=== PATIENT | female | born 1985 | race Caucasian/White ===

== ENCOUNTER → 2017-10-14 14:41 | Outpatient (CLI) | payer OTHER, SELFPAY ==
[2017-10-14 15:32] LABS: Free T3 2.9 pg/mL (2.18-3.98); T4 Free Direct 1.35 ng/dL (0.76-1.46); Thyroid Stim Hormone (TSH) 5.05 uIU/mL (0.358-3.74)
== END ==
PROVIDERS: Family Provider Nurse Practitioner; PCP Nurse Practitioner; Visit Provider Nurse Practitioner
DX: E03.9 Hypothyroidism, unspecified (principal)
CPT/HCPCS: 36415; 84439; 84443; 84481

== ENCOUNTER → 2017-11-26 06:30 | Outpatient (CLI) | payer OTHER, SELFPAY ==
[2017-11-26 07:39] LABS: T4 Free Direct 1.52 ng/dL (0.76-1.46); Thyroid Stim Hormone (TSH) 2.22 uIU/mL (0.358-3.74)
== END ==
PROVIDERS: Family Provider Nurse Practitioner; PCP Nurse Practitioner; Visit Provider Nurse Practitioner
DX: E03.9 Hypothyroidism, unspecified (principal)
CPT/HCPCS: 36415; 84439; 84443; 84481

== ENCOUNTER → 2018-01-30 08:17 | Outpatient (CLI) | payer OTHER, SELFPAY ==
[2018-01-30 09:59] LABS: Free T3 4.9 pg/mL (2.18-3.98); T4 Free Direct 0.74 ng/dL (0.76-1.46)
== END ==
PROVIDERS: Family Provider Nurse Practitioner; PCP Nurse Practitioner; Visit Provider Nurse Practitioner
DX: E03.9 Hypothyroidism, unspecified (principal)
CPT/HCPCS: 36415; 84439; 84443; 84481

== ENCOUNTER → 2018-03-13 09:40 | Outpatient (CLI) | payer OTHER, SELFPAY ==
[2018-03-13 17:58] LABS: Xtra Tube EP Lab EXTRA TUBE
[2018-03-15 14:28] LABS: Free T3 3.2 pg/mL (2.18-3.98); T4 Free Direct 1.39 ng/dL (0.76-1.46); Thyroid Stim Hormone (TSH) 2.44 uIU/mL (0.358-3.74)
== END ==
PROVIDERS: Family Provider Nurse Practitioner; PCP Nurse Practitioner; Referring Provider Nurse Practitioner; Visit Provider Nurse Practitioner
DX: E03.9 Hypothyroidism, unspecified (principal)
CPT/HCPCS: 84439; 84443; 84481

== ENCOUNTER → 2018-04-21 16:43 | Outpatient (CLI) | payer OTHER, SELFPAY ==
[2018-03-04 09:42] VITALS: BMI 48.1
--- NOTE | 2018-04-21 16:48 | RAD_ITS ---
HISTORY: cough for several weeks EXAM: XR Chest 2 Views: COMPARISON: None FINDINGS: No significant change. Normal heart size. No vascular congestion, pleural effusion, or acute pulmonary infiltration. No pneumothorax. Pronounced S-shaped thoracolumbar scoliosis with the thoracic convexity to the right. Thoracic kyphosis, as well. RAD/Chest PA and Lateral IMPRESSION: 1. No acute disease or significant change. 2. Pronounced S-shaped thoracolumbar scoliosis together with thoracic kyphosis. at 0543 Reported and signed by: Archie Abreu MD Electronically Signed: Archie Abreu, at 5:41 EST Tel , Service support ,
== END ==
PROVIDERS: Family Provider Nurse Practitioner; PCP Nurse Practitioner; Referring Provider Internal Medicine; Visit Provider Internal Medicine
DX: R05 Cough (principal)
CPT/HCPCS: 71046

== ENCOUNTER → 2018-07-19 16:34 | Outpatient (CLI) | payer OTHER, SELFPAY ==
[2018-03-04 09:42] VITALS: BMI 48.1
[2018-07-19 17:46] LABS: Free T3 3.1 pg/mL (2.18-3.98); T4 Free Direct 1.33 ng/dL (0.76-1.46); Thyroid Stim Hormone (TSH) 2.89 uIU/mL (0.358-3.74)
== END ==
PROVIDERS: Family Provider Nurse Practitioner; PCP Nurse Practitioner; Referring Provider Nurse Practitioner; Visit Provider Nurse Practitioner
DX: E03.9 Hypothyroidism, unspecified (principal)
CPT/HCPCS: 36415; 84439; 84443; 84481

== ENCOUNTER 2018-11-18 14:28 | Observation (INO) | payer OTHER, SELFPAY ==
[2018-11-18] VITALS (8 sets, daily range): BP systolic 138–164; BP diastolic 75–114; PULSE 82–141; RESP 15–25; TEMP 37.1; O2SAT 94–98; BMI 49.9; BMI 47.9
--- NOTE | 2018-11-18 15:04 | EKG12_ITS ---
Test Reason : DIZZY Blood Pressure : / mmHG Vent. Rate : 080 BPM Atrial Rate : 080 BPM P-R Int : 132 ms QRS Dur : 082 ms QT Int : 376 ms P-R-T Axes : 035 059 024 degrees QTc Int : 433 ms Normal sinus rhythm Normal ECG Confirmed by FADI PATTEN ([id number]), art editor VIKTORIA SCHWARTZ ([id number]) on 11/22/2018 1:27:47 PM Referred By: Aurea Kennedy Confirmed By:RAE PATTEN
[2018-11-18] MEDS: 0.9% Normal Saline 1,000 ML 150 ML IV (15:11)
--- NOTE | 2018-11-18 15:33 | ED.VISSUMM ---
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 Patient states her Florinef was recently decreased due to hypertension. She is currently alternating 0.1 and 0.2 mg/day. She did take 0.2 mg this morning. Patient states she had 2 syncopal episodes at home this morning. She denies any injury from falling to the ground. She was at her PCPs office this afternoon and had another near syncopal episode when they stood her up. Patient states her heart rate dropped when they did this. Physical Examination: Vital signs on arrival include a blood pressure of 164/114, temperature 98.7, rate 120, respiratory rate 25, pulse ox 94% on room air. The time of my examination blood pressure is 154/124 with a heart rate of 93. Patient is lying supine in the bed. She is in no acute distress. Head neck examination is unremarkable. Heart is regular rate and rhythm. Lung sounds are clear. Abdomen is soft and nontender. Test Results: EKG is sinus at 80. Normal intervals noted. CBC normal. Chemistry studies significant for potassium 3.4. LFTs normal. Patency test negative. Emergency Department Course and Treatment: Patient was given IV fluids here. Blood pressure at this time is 147/83 with a heart rate of 97. She will be given 40 mg of p.o. potassium. I spoke to Dr. Turpin to whom the patient is known. He advised patient to go back to 0.2 mg of Florinef daily. She will monitor her blood pressure every day. She is to ensure she is monitoring her fluids and drinking enough. She is to wear compression socks. Patient has an appointment with Dr. Turpin on the . Treatment Plan: [] Disposition: Discharge Impression: Syncope with known history of neurocardiogenic vasovagal syncope Addendum: Patient was discharged to home. Nursing staff had her in a wheelchair, but before they were able to get her to the door she had another near syncopal episode and was returned to the room. Vital signs at this time are unremarkable. Patient will be admitted for observation overnight due to the recurrent near syncope and syncope events she had today. This note was generated with [employer]anda[employer] software. It may contain incorrect words, spelling, and punctuation that were not noted in review of the chart prior to signing ED Disposition - Plan for ED Patient: Disposition: Home or Assisted Living Instructions: ED Syncope Vasovagal Referrals: Fide Mahoney NP-C [Primary Care Provider] - Charlie Turpin MD [STAFF PHYSICIAN] - Keep Dalila appointment
[2018-11-18 15:35] LABS: Absolute Lymphocyte Count 2.18 X10^3/ul (0.83-4.51); Absolute Neutrophil Count 7.5 X10^3/uL (2.0-7.7); Basophil# 0.01 X10^3/uL; Basophil% 0.1 % (0-1); Eosinophil# 0.19 X10^3/uL; Eosinophils% 1.8 % (0-5); Hematocrit 37.7 % (37-47); Hemoglobin 12.2 g/dl (12.0-15.0); Lymphocyte # 2.18 X10^3/ul (4.0); Lymphocyte % 20.8 % (19-41); Mean Corp Hgb Conc 32.4 g/gl (32-36); Mean Corpuscular Hgb 24.8 pg (27.0-32.0); Mean Corpuscular Volume 76.6 fL (81-99); Mean Platelet Vol. 9.8 fl (6.2-12.0); Monocyte# 0.55 X10^3/uL; Monocyte% 5.2 % (0-10); Neutrophil # 7.52 X10^3/uL (2.7-7.7); Neutrophil % 71.8 % (47-70); Platelet Count 266 K/mm3 (150-450); RBC Distribution Width CV 14.7 % (11.6-14.6); RBC Distribution Width SD 39.9 fl (35.1-43.9); Red Blood Count 4.92 M/mm3 (4.2-5.4); White Blood Count 10.5 K/mm3 (4.4-11.0)
[2018-11-18 15:39] LABS: POSITIVE COUNT NO; POSITIVE DIFFERENTIAL NO; POSITIVE MORPHOLOGY NO
[2018-11-18 15:48] LABS: AST(SGOT) 18 U/L (15-37); Alanine Aminotransfer ALT/SGPT 37 U/L (13-56); Albumin, Serum 3.5 g/dL (3.2-5.0); Alkaline Phosphatase 87 U/L (45-117); Anion Gap 5 (5-15); BUN 12 mg/dL (7-18); BUN/Creat Ratio 15.2 RATIO (10-20); Bilirubin, Direct 0.08 mg/dL (0.00-0.30); Calcium,Total 8.5 mg/dL (8.5-10.1); Chloride 106 mmol/L (98-107); Creatinine, Serum 0.79 mg/dL (0.55-1.02); EST Glomerular Filtration Rate 90 mL/min (>60); Est Glom Filt Rate - Afr Amer 109 mL/min (>60); Estimated Creatinine Clearance 201.65 ml/min; Globulin 3.3 g/dL (2.2-4.2); Glucose 108 mg/dL (74-106); Potassium 3.4 mmol/L (3.5-5.1); Protein, Total 6.8 g/dL (6.4-8.2); Sodium Level 137 mmol/L (136-145)
[2018-11-18 15:55] LABS: Internal QC Validated? YES +Cl - CLEAR BKGD; Pregnancy, Serum, hCG Quali. NEGATIVE Negative
[2018-11-18 16:01] LABS: Bedside Glucose 88 mg/dL (70-110)
--- NOTE | 2018-11-18 17:55 | ED.RN ---
PT WAS DISCHARGED AND ASSISTED OUT OF ED BY LEONARD IBARRA. PT REPORTS DIZZINESS AND NEAR SYNCOPE WHEN LEAVING ED. PT PLACED BACK IN ROOM, DR. CAMARGO AWARE.
--- NOTE | 2018-11-18 18:16 | PCM.HP.STD ---
Problem List (1) Neurocardiogenic syncope Status: Chronic (2) Premature ventricular contraction Status: Acute (3) Hypothyroidism Status: Chronic Qualifiers: Hypothyroidism type: unspecified Qualified Code(s): E03.9 - Hypothyroidism, unspecified (4) Hypokalemia Status: Acute History of Present Illness Date of Admission: 11/18/18 Chief Complaint: Syncope x2 The patient is a 33 year old F with history of neurocardiogenic syncope status post tilt test as negative, follows up with Dr. Turpin, on Florinef. Her Florinef was recently decreased from 0.2 mg daily to 0.2mg qoday and 0.1mg qod. Patient had 2 episodes of syncope at home, she hit her head on the ground, syncope lasted a few minutes. She woke up she knew where she was. She went to her PCPs office this afternoon and had another near syncopal episode. Subsequently had a syncopal episode in the ED. Vitals in the ED show temperature of 98.7F, heart rate 105, blood pressure 164/114, respiratory 25, SPO2 was 94% on room air. Admitting blood work showed RBC count of 10.5, Hb 12.2, platelet count of 266, sodium 137, potassium 3.4, chloride 106, bicarbonate 26, BUN 12, creatinine 0.79, LFTs were unremarkable. 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 Pt wishes to be placed on a different hormone replacement therapy which is fine once we determine her appropriate dose. Asthma J45.909 Chronic headaches R51 Recurrent UTI N39.0 Seasonal allergies J30.2 Palpitations R00.2 Allergies No Known Allergies Allergy (Verified 11/18/18 14:29) Home Medications: Ambulatory Orders Medication Instructions Recorded fludrocortisone 0.1 mg tablet 0.2 mg PO QODAY tab 04/06/18 Albuterol IH (ProAir) [Proair Hfa 1 - 2 puff INHALATION Q6H PRN PRN 11/18/18 (SP)Vent Pts] Budesonide/Formoterol 160/4.5 2 puff INHALATION DAILY 11/18/18 [Symbicort 160/4.5 Mcg Inhaler (SP)] Cholecalciferol (Vitamin D3) 5,000 unit PO DAILY 11/18/18 [Vitamin D3] Duloxetine HCl 60 mg PO DAILY 11/18/18 Flaxseed Oil [Flax Oil] 1,000 mg PO DAILY 11/18/18 Fludrocortisone Acetate [Florinef] 0.1 mg PO QODAY 11/18/18 Levothyroxine Sodium 125 mcg PO DAILY 11/18/18 Liothyronine Sodium 5 mcg PO ONCE 11/18/18 Lorazepam [Ativan] 0.5 mg PO BID PRN PRN 11/18/18 Omeprazole 40 mg PO DAILY 11/18/18 Surgical History: Surgical History (Last Updated 03/04/18 @ 09:51 by Pinky Krueger) History of dental surgery Z92.89 Surgical History: no surgical history Psychiatric History: No pertinent psych hx 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 Lives: Spouse/ Significant Other Smoking Status: Current every day smoker Tobacco Use: Cigarettes Alcohol: Occasional Drugs: None - *Family History Maternal Family History: Family History (Last Updated 03/04/18 @ 09:52 by Pinky Krueger) Father CVA (cerebral vascular accident) S/P AVR (aortic valve replacement) Mother Hypertension Psoriasis Grandfather Myocardial infarction Cancer History Items: Hypertension Paternal Family History: Family History (Last Updated 03/04/18 @ 09:52 by Pinky Krueger) Father CVA (cerebral vascular accident) S/P AVR (aortic valve replacement) Mother Hypertension Psoriasis Grandfather Myocardial infarction Cancer History Items: Heart Disease, Stroke Review of Systems Constitutional: Denies: Anorexia, Chills, Fever, Malaise, Weakness, Weight Change Eyes: Denies: Blurred vision, Cataracts, Conjunctivae Inflammation, Pain, Redness, Vision Change HEENT: Denies: Difficulty Hearing, Head Aches, Hearing Changes, Sinus Congestion, Sinus Drainage Cardiovascular: Denies: Chest Pain, Claudication, Orthopnea, Palpitations, Paroxysmal Noc. Dyspnea Respiratory: Denies: Cough, Hemoptysis, Shortness of breath at rest, Shortness of breath upon exertion, Sputum production Gastrointestinal: Denies: Abdominal Pain, Hematemesis, Hematochezia, Nausea, Vomiting Genitourinary: Denies: Dysuria, Frequency Gynecological: Denies: Breast symptoms, Excessively long or heavy periods Musculoskeletal: Denies: Joint Pain, Joint stiffness, Joint swelling, Joint Tenderness Skin: Denies: Rash, Wounds Neurological: Denies: Difficulty swallowing, Focal weakness, Numbness, Tingling Psychiatric: Denies: Anxiety, Depression, Homicidal Ideations, Suicidal Ideations Hematologic/ Lymphatic: Denies: Easy Bruising, Easy Bleeding VTE Information - Inpt Only VTE Present on Admission: No VTE Pharm Prophylaxis ordered?: Yes Patient Problems: Active and Suspected Problems (Last Updated 03/04/18 @ 08:18 by Amol Lewis SERVICES TECH-C) Familial neurocardiogenic syncope (Acute) Hypokalemia (Acute) - Physical Exam General: Alert, Oriented x3, Cooperative, - - comfortable, not on oxygen HEENT: Atraumatic, PERRLA, EOMI, Normocephalic Oral: Moist Mucosa Neck: Supple Lungs: Clear to auscultation, Normal air movement Cardiovascular: Regular rate, Regular Rhythm, Normal S1, Normal S2, No murmurs Abdomen: Bowel Sounds Present, Soft, Non Tender, Non-Distended, No Hepato-splenomegaly Extremities: No edema Skin: No rashes, No breakdown Musculoskeletal: No Tenderness to Palpation of Joints or Extremities Lymphatic: No Cervical, Supraclavicular, or Inguinal Adenopathy Neurological: Cranial nerves II-XII grossly intact, Neuro grossly intact Psych/Mental Status: Normal Affect, Appropriate Vital Signs Temp Pulse Resp BP Pulse Ox 98.7 F 97 16 144/92 H 98 11/18/18 14:30 11/18/18 18:05 11/18/18 18:05 11/18/18 18:05 11/18/18 18:05 Oxygen Delivery Method Room Air Weight: 123.8 kg Body Mass Index (BMI) 0.4 Finger Stick Blood Glucose 88 Laboratory Tests Past 24 Hrs 11/18/18 11/18/1811/18/19 14:59 14:59 14:59 WBC 10.5 RBC 4.92 Hgb 12.2 Hct 37.7 MCV 76.6 L MCH 24.8 L MCHC 32.4 RDW 14.7 H RDW Differential 39.9 Plt Count 266 MPV 9.8 Immature Gran % (Auto) 0.300 Neut % (Auto) 71.8 H Lymph % (Auto) 20.8 [place] % (Auto) 5.2 Eos % (Auto) 1.8 Baso % (Auto) 0.1 Absolute Neuts (auto) 7.5 Absolute Lymphs (auto) 2.18 Total Counted Not Reportable Sodium 137 Potassium 3.4 L Chloride 106 Carbon Dioxide 26.0 Anion Gap 5 BUN 12 Creatinine 0.79 Estim Creat Clear Calc 201.65 Est GFR (MDRD) Af Amer 109 Est GFR (MDRD) Non-Af 90 BUN/Creatinine Ratio 15.2 Glucose 108 H Calcium 8.5 Total Bilirubin 0.30 Direct Bilirubin 0.08 AST 18 ALT 37 Alkaline Phosphatase 87 Total Protein 6.8 Albumin 3.5 Globulin 3.3 Serum , Qual NEGATIVE POC Glucose 11/18/18 15:53 POC Glucose 88 Assessment/Plan All Active Problems (Last Updated 03/04/18 @ 08:18 by Amol Lewis, KEVIN-C) Familial neurocardiogenic syncope (Acute) Hypokalemia (Acute) Premature ventricular contraction (Acute) Hypothyroidism (acquired) (Acute) 33 year old F with past medical history of neurocardiogenic syncope status post tilt test which was negative, follows up with Dr. Turpin, on Florinef, recently had decreased doses of Florinef and comes in witn recurrent syncope. 1. Recurrent syncope, history of neurocardiogenic syncope, status post 2 tests, on Florinef ED physician spoke to Dr. Turpin and the plan was for patient to be on 0.2 mg of Florinef Plan: Admit to PCU, monitor on telemetry, IV fluids, continue 0.2 mg of Florinef, cardiology consult 2. Hypokalemia, replaced, recheck in a.m. 3. Morbid obesity, BMI 47.9, diet and exercise recommended 4. Hypothyroidism, on Levothyroxine/Liothyronine 5. DVt PPx- Early ambulation Code Visit Inpatient E&M: 67002 Init Hosp L3
[2018-11-18] MEDS: 0.9% Normal Saline 1,000 ML 75 ML IV (20:07)
[2018-11-18] MEDS: 0.9% NaCl Peripheral Flush Adult/Peds IV (20:07)
[2018-11-19] VITALS (11 sets, daily range): BP systolic 129–154; BP diastolic 79–106; PULSE 70–95; RESP 16–28; TEMP 36.7–37; O2SAT 96–99
--- NOTE | 2018-11-19 00:56 | NURSING ---
VS triggering Q1-2 hours on VSA. Lungs CTA. Pt denies shortness of breath.
[2018-11-19] MEDS: Levothyroxine 125 MCG Tablet PO (06:22)
[2018-11-19] MEDS: Albuterol 2.5 MG/3 ML VIAL.NEB. INHALATION (06:51)
[2018-11-19] MEDS: Budesonide Respules 0.5 MG/2 ML AMPUL.NEB. INHALATION (06:51)
--- NOTE | 2018-11-19 08:33 | ECHOCS_ITS ---
Reason For Study: Syncope Procedure This was a 2D Doppler, Color Flow transthoracic echocardiogram. The study was technically difficult. Contrast injection was performed. Exam performed portable in patient room. Left Ventricle Normal LV size. Based upon the 2D echocardiographic and contrast enhanced images obtained there appears to be grossly normal left ventricular size, wall motion, and systolic function. The estimated ejection fraction is 55 %. No evidence for diastolic dysfunction. No regional wall motion abnormalities noted. Right Ventricle Normal RV size. Normal systolic function. Atria The left atrium is mildly enlarged. Normal right atrium. No doppler evidence for ASD. Mitral Valve There is no mitral annular calcification. Normal mitral valve. Trivial mitral valve insufficiency. Tricuspid Valve Normal tricuspid valve. Trivial tricuspid valve insufficiency. Unable to estimate RV systolic pressure/pulmonary artery pressure due to technically difficult study. Aortic Valve Trisinus/trileaflet aortic valve. Normal aortic valve. Pulmonic Valve The pulmonic valve is not well visualized. Great Vessels Normal sized aortic root. Pericardium/Pleural No pericardial effusion. Medication Diluted definity 2ml given slow IV push to enhance endocardial definition. MMode/2D Measurements & Calculations Ao root diam: 3.4 cm LAV(MOD-bp): 78.3 ml LVAd ap4: 35.4 cm2 LAV(MOD-bp) Indexed: 36.6 ml/m2 EDV(MOD-sp4): 112.0 ml LAV(MOD-sp2): 71.0 ml EDV(sp4-el): 119.1 ml LAV(MOD-sp4): 80.6 ml LVAs ap4: 21.6 cm2 ESV(MOD-sp4): 51.8 ml ESV(sp4-el): 54.8 ml EF(MOD-sp4): 53.7 % EF(sp4-el): 54.0 % SV(MOD-sp4): 60.1 ml SV(sp4-el): 64.3 ml LA A4 area: 25.3 cm2 RA A4 area: 13.2 cm2 Time Measurements MV dec time: 0.17 sec Doppler Measurements & Calculations MV E max joseph: 76.6 cm/sec Lat Peak E' Joseph: 14.1 cm/sec Med Peak E' Joseph: 10.1 cm/sec MV A max joseph: 50.8 cm/sec E/E' lat: 5.4 E/E' med: 7.6 MV E/A: 1.5 MV V2 max: 90.5 cm/sec MV P1/2t max joseph: 92.5 cm/sec Ao V2 max: 98.1 cm/sec MV max P.3 mmHg MV P1/2t: 63.4 msec Ao max P.9 mmHg MV V2 mean: 51.6 cm/sec MV dec slope: 427.4 cm/sec2 Ao V2 mean: 64.0 cm/sec MV mean P.2 mmHg Ao mean P.9 mmHg MV V2 VTI: 20.6 cm MVA(P1/2t): 3.5 cm2 Ao V2 VTI: 18.2 cm LV V1 max: 81.5 cm/sec PA V2 max: 83.8 cm/sec LV V1 max P.7 mmHg LV V1 mean P.3 mmHg LV V1 mean: 53.1 cm/sec LV V1 VTI: 16.2 cm Interpretation Summary The study was technically difficult. Contrast injection was performed. Based upon the 2D echocardiographic and contrast enhanced images obtained there appears to be grossly normal left ventricular size, wall motion, and systolic function. The estimated ejection fraction is 55 %. The left atrium is mildly enlarged. Trivial mitral valve insufficiency. Trivial tricuspid valve insufficiency. Unable to estimate RV systolic pressure/pulmonary artery pressure due to technically difficult study. No evidence for diastolic dysfunction. Ordering Physician: Charlie Turpin Referring Physician: Aurea Kennedy Performed By: Caleb Ramírez RCS
--- NOTE | 2018-11-19 08:39 | CON.PCM_ITS ---
Problem List (1) Neurocardiogenic syncope Status: Chronic (2) Premature ventricular contraction Status: Acute (3) HTN (hypertension) Status: Chronic (4) Hypothyroidism Status: Chronic Qualifiers: Hypothyroidism type: unspecified Qualified Code(s): E03.9 - Hypothyroidism, unspecified Reason for Consult Date of Consultation: 11/19/18 History of Present Illness: The patient is a 33 year old white female with a history of a tilt table positive neurocardiogenic/vasovagal mediated syncope history treated medically with volume support, compression stockings, and medical therapy with Florinef who presents for recurrent near syncope/syncope. She notes recently she has noted episodes of feeling somewhat dizzy, having near syncope, and recurrent syncope. She was evaluated by her PCP. She states there was also concerns that her blood pressure was somewhat elevated. Thus her medication was adjusted. Her Florinef dose was decreased from 0.2 mg p.o. daily to 0.2 mg p.o. q. other day alternating with 0.1 mg p.o. q. other day. Since doing so she has had recurrent near syncope/syncope. She does not recall any other alteration in medications recently. She does not recall any other medical events occurring recently. She states prior to the initiation of these events after eating [place] food the following day she had 1 day of loose bowel movements as diarrhea. Otherwise she states she has had no other obvious illness. She presented to the emergency department based upon concerns by her PCP. In the emergency department she underwent evaluation. There appeared to be no acute changes although she was having episodes of near syncope and/or syncope in the emergency department. She was treated medically with IV fluids. A recommendation was made to restore her Florinef therapy to 0.2 mg p.o. daily pending follow-up and blood pressure reevaluation. However upon attempting to leave the emergency department she had recurrent near syncope/syncope. Thus she was brought into the hospital for observation. In the hospital she is been receiving IV fluids. She has had cardiac telemetry which is demonstrated sinus rhythm. She has had follow-up ECG which demonstrated sinus rhythm with no acute ECG changes. She has denied other symptoms such as ongoing chest discomfort or difficulty breathing. She states she has had occasional palpitations. Her PCP ECG did capture a PVC. [] Past Medical History Allergies/Adverse Reactions: Allergies No Known Allergies Allergy (Verified 11/18/18 14:29) Home Medications: Ambulatory Orders Medication Instructions Recorded fludrocortisone 0.1 mg tablet 0.2 mg PO QODAY tab 04/06/18 Albuterol IH (ProAir) [Proair Hfa 1 - 2 puff INHALATION Q6H PRN PRN 11/18/18 (SP)Vent Pts] Budesonide/Formoterol 160/4.5 2 puff INHALATION DAILY 11/18/18 [Symbicort 160/4.5 Mcg Inhaler (SP)] Cholecalciferol (Vitamin D3) 5,000 unit PO DAILY 11/18/18 [Vitamin D3] Duloxetine HCl 60 mg PO DAILY 11/18/18 Flaxseed Oil [Flax Oil] 1,000 mg PO DAILY 11/18/18 Fludrocortisone Acetate [Florinef] 0.1 mg PO QODAY 11/18/18 Levothyroxine Sodium 125 mcg PO DAILY 11/18/18 Liothyronine Sodium 5 mcg PO DAILY 11/18/18 Lorazepam [Ativan] 0.5 mg PO BID PRN PRN 11/18/18 Omeprazole 40 mg PO DAILY 11/18/18 Past Medical History (Chronic Problems): Chronic Problems (Last Updated 03/04/18 @ 08:18 by YAJAIRA Combs) Neurocardiogenic syncope (Chronic) HTN (hypertension) (Chronic) Palpitations (Chronic) Hypothyroidism (Chronic) Vasovagal syncope (Chronic) Adriane's disease (Chronic) Surgical History: no surgical history Psychiatric History: No pertinent psych hx CUSTOMER SOLUTIONS SPECIALIST History: No pertinent CUSTOMER SOLUTIONS SPECIALIST history - *Family History Maternal Family History: Family History (Last Updated 03/04/18 @ 09:52 by Pinky Krueger) Father CVA (cerebral vascular accident) S/P AVR (aortic valve replacement) Mother Hypertension Psoriasis Grandfather Myocardial infarction Cancer History Items: Hypertension Paternal Family History: Family History (Last Updated 03/04/18 @ 09:52 by Pinky Krueger) Father CVA (cerebral vascular accident) S/P AVR (aortic valve replacement) Mother Hypertension Psoriasis Grandfather Myocardial infarction Cancer History Items: Heart Disease, Stroke Lives: Spouse/ Significant Other Smoking Status: Current every day smoker Tobacco Use: Cigarettes Alcohol: Occasional Drugs: None Review of Systems - Review of Systems General: Denies: Fever, Night Sweats, Fatigue Cardiovascular: Reports: Palpitations, Near Syncope, Syncope. Denies: Chest Discomfort, Shortness of Breath, Orthopnea, PND, Peripheral Edema, Lightheadedness, Dizziness Respiratory: Denies: Cough, Sputum Production, Hemoptysis Gastrointestinal: Denies: Hematemesis, Hematochezia, Melena Genitourinary: Denies: Dysuria, Hematuria Skin: Denies: Rash Subjectve: This is a 33-year-old white female who appears to be resting comfortably at the moment in no acute distress. Objective: Vital Signs Temp Pulse Resp BP Pulse Ox 98.6 F 82 18 144/99 H 98 11/19/18 06:16 11/19/18 07:07 11/19/18 06:53 11/19/18 06:16 11/19/18 06:16 Oxygen Delivery Method Room Air Weight: 261 lb 14.546 oz Body Mass Index (BMI) 47.9 Finger Stick Blood Glucose 88 Intake and Output for Last 24 Hours 11/17/18 11/18/18 11/19/18 23:59 23:59 23:59 Intake Total 699 / 699 644 / 644 Balance 699 / 699 644 / 644 General: Awake, Alert, Oriented x 3, Cooperative, No Acute Distress, Obese HEENT: Atraumatic, Normocephalic, PERRL, EOMI, Sclera Non Icteric Oral: Moist Mucosa Neck: Supple, Good ROM, No JVD Lungs: Clear to auscultation Cardiovascular: Regular Rhythm, Normal S1, Normal S2 Vascular: No Carotid Bruits Abdomen: Bowel Sounds Present, Soft, Non Tender Extremities: No Cyanosis, No Clubbing, No edema Neurological: No Focal Motor or Sensory Deficit Psych/Mental Status: Appropriate 11/18/18 14:59: WBC 10.5, RBC 4.92, Hgb 12.2, Hct 37.7, MCV 76.6 L, MCH 24.8 L, MCHC 32.4, RDW 14.7 H, RDW Differential 39.9, Plt Count 266, MPV 9.8, Immature Gran % (Auto) 0.300, Neut % (Auto) 71.8 H, Lymph % (Auto) 20.8, Stevens % (Auto) 5.2, Eos % (Auto) 1.8, Baso % (Auto) 0.1, Absolute Neuts (auto) 7.5, Total Counted Not Reportable 11/18/18 14:59: Sodium 137, Potassium 3.4 L, Chloride 106, Carbon Dioxide 26.0, Anion Gap 5, BUN 12, Creatinine 0.79, Est GFR (MDRD) Af Amer 109, Est GFR (MDRD) Non-Af 90, BUN/Creatinine Ratio 15.2, Glucose 108 H, Calcium 8.5, Total Bilirubin 0.30, Direct Bilirubin 0.08 Rhythm: Sinus rhythm EKG: Sinus rhythm; no acute ECG changes ECHO: 12/04/2014 Interpretation Summary Normal LV size. Left ventricular systolic function is normal. The estimated ejection fraction is 60 %. Structurally normal valves. Tilt table study: 01-04-15 The patient was brought to the tilt table laboratory. She was alert. Her skin was dry. Her baseline heart rate was 68 bpm with a baseline blood pressure 122/69 mm Hg. Her cardiac rhythm was sinus rhythm with occasional PVCs. The patient was placed in the 70? upright tilt table position for approximately 18 minutes. The minimal heart rate was reported at 57 bpm with a minimal blood pressure being reported as undetectable. During this time the patient was reported as being alert and diaphoretic. The maximal heart rate was reported at 101 bpm with a maximal blood pressure 119/74 mm Hg. During this time the patient was reported as being alert with her skin being initially dry and subsequently diaphoretic. The cardiac rhythm remained sinus rhythm with occasional PVCs. The patient reported, during this time, a variety of symptoms which included dizziness, extremities feeling cold and weak, nausea, clamminess, can't think , and ear ringing . The patient did not lose consciousness. The patient was returned to the supine position. The patient was subsequently administered nitroglycerin 0.4 mg sublingual ?1 per protocol. The patient was returned to the 70? upright tilt table position. The minimal heart rate was reported at 58 bpm with a minimal blood pressure reported as undetectable. During this time, of undetectable blood pressure, the patient was reported as unconscious and diaphoretic. The maximal heart rate was reported at 101 bpm with a maximal blood pressure reported at 125/66 mm Hg. During that blood pressure recording the patient was reported as alert with the skin being dry. The cardiac rhythm remained sinus rhythm with occasional PVCs. During this the patient reported feeling dizzy, woozy , and subsequently lost consciousness. The patient was returned to the supine position. The patient subsequently regained consciousness. She was reported as being alert and dry. Her heart rate was reported at 79 bpm with a blood pressure 125/79 mm Hg. Her cardiac rhythm remained sinus rhythm with occasional PVCs. She was reported as being back to baseline. Summary: 70? upright tilt table study considered positive for reproducible near syncope and 70? upright tilt table study status post nitroglycerin challenge considered positive for reproducible syncope being compatible with vasovagal / neurocardiogenic (mixed cardioinhibitory and predominantly vasodepressor) syncope. Assessment/Plan 1. Autonomic dysfunction/neurocardiogenic mediated/vasovagal mediated near syncope/syncope At the present time the patient appears to be symptomatically and hemodynamically stable. Her cardiac rhythm has remained stable with sinus rhythm with no acute changes. Her ECG has demonstrated no acute changes. He will be asked to have an echocardiogram to reassess her cardiac anatomy and physiology for any obvious changes compared to her previous study that would be contributing to a change in her clinical status. She has received IV fluids. She has continued on her other medications. At the moment she will continue with IV fluids and as an outpatient with volume support. She will will need to continue with her compression stockings. She will continue with her medical management with Florinef therapy at 0.2 mg p.o. daily. She will attempt additional medical therapy which in theory may be beneficial to her underlying autonomic dysfunction and hopefully assist with concerns of her hypertension without creating additional hypotension with beta-davion therapy. She will be placed on low-dose beta-davion therapy with metoprolol succinate starting at 25 mg a day. However, it was recommended to her, that as an outpatient she be referred to Dr.Frederick Castillo of [facility] cardiology/electrophysiology who specializes in autonomic dysfunction disorders for further diagnostic studies/therapeutic recommendations. She was agreeable to the initiation of an outpatient referral. 2. PVCs She does have intermittent palpitations. She does have intermittent PVCs. She has had no complex dysrhythmias thus far. She will continue evaluation care as noted above. 3. Hypertension Her blood pressures have been somewhat elevated. It is unclear whether this is related to her medical management with Florinef versus simultaneous development of hypertension separate from her medical therapy. At the moment this can make it challenging to treat her autonomic dysfunction/neurocardiogenic mediated/vasovagal mediated near syncope/syncope and concerns of hypotension being treated as noted above and yet needing to treat hypertension. She will initiate additional medical management as noted above. She will need follow-up of her blood pressures hopefully to balance her blood pressures and avoid significant hypotension or hypertension. Additional tertiary care center evaluation as noted above would also be very helpful with respect to her case. 4. Hypothyroidism She will continue medical management as deemed appropriate. Comment: The above was discussed and reviewed with the patient and previously with Dr. You at the [facility] emergency department staff This note was generated with WedPics (deja [email or web address]) dictation software. It may contain incorrect words, spelling, and punctuation that were not noted in checking the note before signing.
[2018-11-19] MEDS: Fludrocortisone Acetate 0.1 MG Tablet 0.2 MG PO (08:50)
[2018-11-19] MEDS: 0.9% Normal Saline 1,000 ML 75 ML IV (08:51)
[2018-11-19] MEDS: Metoprolol(XL)Succ 25 MG Tablet PO (09:05)
[2018-11-19] MEDS: Pantoprazole Sodium 40 MG Tablet PO (10:02)
[2018-11-19] MEDS: DULoxetine Hcl 60 MG Capsule PO (10:02)
--- NOTE | 2018-11-19 12:48 | DCINST_ITS ---
- Discharge Diagnoses Current Active Problems: Current Active and Chronic Problems (Last Updated 03/04/18 @ 08:18 by YAJAIRA Combs) Neurocardiogenic syncope (Chronic) Familial neurocardiogenic syncope (Acute) Hypokalemia (Acute) HTN (hypertension) (Chronic) You will use the following diet at home:: Calorie/Carbohydrate Controlled (specify 1200, 1400, etc) Your food should be the consistency of: Regular Your liquids should be the consistency of: Regular/Thin Discharge Activity: Return to Normal Activity Call your doctor if you observe: Fever of 101 or Higher, Shortness of breath, Dizziness, Fainting spells, Swelling in the ankles, Chest pain, Increased palpitations (irregular heartbeat) Instructions: ED Syncope Vasovagal Allergies/Adverse Reactions: Allergies No Known Allergies Allergy (Verified 11/18/18 14:29) Medications to take at Discharge Albuterol IH (ProAir) [Proair Hfa] 1 - 2 puff INHALATION Q6H PRN PRN 11/18/18 Budesonide/Formoterol 160/4.5 [Symbicort 160/4.5 Mcg Inhaler (SP)] 2 puff INHALATION DAILY 11/18/18 Cholecalciferol (Vitamin D3) [Vitamin D3] 5,000 unit PO DAILY 11/18/18 Duloxetine HCl 60 mg PO DAILY 11/18/18 Flaxseed Oil [Flax Oil] 1,000 mg PO DAILY 11/18/18 Levothyroxine Sodium 125 mcg PO DAILY 11/18/18 Liothyronine Sodium 5 mcg PO DAILY 11/18/18 Lorazepam [Ativan] 0.5 mg PO BID PRN PRN 11/18/18 Omeprazole 40 mg PO DAILY 11/18/18 Fludrocortisone Acetate [Florinef] 0.2 mg PO DAILYCM tablet 11/19/18 Metoprolol(XL)Succ [Toprol Xl (Beta Juan Carlos)] 25 mg PO DAILY #30 tablet 11/19/18 The following prescriptions were given: Metoprolol(XL)Succ [Toprol Xl (Beta Juan Carlos)] 25 mg PO DAILY #30 tablet Orders to be completed after discharge: Cardiology Location: None Selected Primary Care Physician: Charlie Turpin MD [STAFF PHYSICIAN] - Keep Dalila appointment Fide Mahoney NP-C [Primary Care Provider] - Test Results: Test results from this visit will be discussed in further detail at your follow- up appointment, if applicable.
--- NOTE | 2018-11-19 12:49 | PCM.DC.SUM ---
Discharge Date and Diagnosis - Problem List Patient Problems: Active and Suspected Problems (Last Updated 03/04/18 @ 08:18 by YAJAIRA Combs) Familial neurocardiogenic syncope (Acute) Hypokalemia (Acute) Date of Admission: 11/18/18 Date of Discharge: 11/19/18 - Primary Discharge Diagnosis Active and Suspected Problems (Last Updated 03/04/18 @ 08:18 by YAJAIRA Combs) Familial neurocardiogenic syncope (Acute) Hypokalemia (Acute) - Secondary Discharge Diagnosis Chronic Problems (Last Updated 03/04/18 @ 08:18 by YAJAIRA Combs) Neurocardiogenic syncope (Chronic) HTN (hypertension) (Chronic) Palpitations (Chronic) Hypothyroidism (Chronic) Vasovagal syncope (Chronic) Adriane's disease (Chronic) Hospital Course and Treatment Imaging Results: None Consults: Cardiology Operations: None Procedures: 2-D Echocardiogram - Interpretation Summary The study was technically difficult. Contrast injection was performed. Based upon the 2D echocardiographic and contrast enhanced images obtained there appears to be grossly normal left ventricular size, wall motion, and systolic function. The estimated ejection fraction is 55 %. The left atrium is mildly enlarged. Trivial mitral valve insufficiency. Trivial tricuspid valve insufficiency. Unable to estimate RV systolic pressure/pulmonary artery pressure due to technically difficult study. No evidence for diastolic dysfunction. Summary of Care Provided: Per HPI: The patient is a 33 year old F with history of neurocardiogenic syncope status post tilt test as negative, follows up with Dr. Turpin, on Florinef. Her Florinef was recently decreased from 0.2 mg daily to 0.2mg qoday and 0.1mg qod. Patient had 2 episodes of syncope at home, she hit her head on the ground, syncope lasted a few minutes. She woke up she knew where she was. She went to her PCPs office this afternoon and had another near syncopal episode. Subsequently had a syncopal episode in the ED. Vitals in the ED show temperature of 98.7F, heart rate 105, blood pressure 164/114, respiratory 25, SPO2 was 94% on room air. Admitting blood work showed RBC count of 10.5, Hb 12.2, platelet count of 266, sodium 137, potassium 3.4, chloride 106, bicarbonate 26, BUN 12, creatinine 0.79, LFTs were unremarkable. Hospital Course: 1. Autonomic dysfunction with neurocardiac syncope/HTN/morbid [id number]-old female with a history of autonomic dysfunction who is had a positive tilt test for neurocardiogenic syncope, presents with another episode of syncope. She states that her blood pressure has recently been climbing while on the Florinef so she was told to take 0.2 mg alternating with 0.1 mg of Florinef. On presentation she was given some IV fluids and her Florinef was increased to 0.2 mg daily and she is significantly improved. She denies any symptoms of lightheadedness or dizziness currently and her echo obtained by cardiology was essentially normal, as was her EKG on admission. She has a previously scheduled appointment with cardiology at the end of this month that she is to keep. In order to help manage her blood pressure in the setting of taking 0.2 mg of Florinef daily, she will be started on metoprolol succinate 25 mg daily. She is to follow-up with her primary care physician in 3 to 5 days and she will be given a referral for an manufacturing quality engineer in the [facility] to assist in the management of her autonomic dysfunction. I had a 30-minute discussion with her today on lifestyle modifications in terms of her morbid obesity. Her BMI is 47.9 and she states that she is currently seeing a dietitian as her on a 1400 -calorie/day diet. 2. Her other medical diagnoses were evaluated and her home medications were continued where appropriate Patient Problems: Active and Suspected Problems (Last Updated 03/04/18 @ 08:18 by JANET CombsC) Familial neurocardiogenic syncope (Acute) Hypokalemia (Acute) - Physical Exam General: Alert, Oriented x3, Cooperative, No apparent distress HEENT: Atraumatic, PERRLA, EOMI, Normocephalic Oral: Moist Mucosa Neck: Supple, No JVD Lungs: Clear to auscultation, Normal air movement, No rhonchi, No wheeze, No rales Cardiovascular: Regular rate, Regular Rhythm, Normal S1, Normal S2, No murmurs Abdomen: Soft, Non Tender, Non-Distended, No Hepato-splenomegaly, Obese Extremities: No edema, Capillary Refill Less than 3 Seconds Skin: No rashes, No breakdown Neurological: Neuro grossly intact, Sensory exam intact to light touch and pain Psych/Mental Status: Normal Affect, Appropriate Vital Signs Temp Pulse Resp BP Pulse Ox 98.5 F 74 16 154/106 H 97 11/19/18 10:57 11/19/18 11:02 11/19/18 10:57 11/19/18 10:57 11/19/18 10:57 Oxygen Delivery Method Room Air Weight: 261 lb 14.546 oz Body Mass Index (BMI) 47.9 Finger Stick Blood Glucose 88 Intake and Output for Last 24 Hours 11/17/18 11/18/18 11/19/18 23:59 23:59 23:59 Intake Total 699 / 699 1259 / 1259 Balance 699 / 699 1259 / 1259 Laboratory Tests Past 24 Hrs 11/18/18 11/18/18 11/18/18 14:59 14:59 14:59 WBC 10.5 RBC 4.92 Hgb 12.2 Hct 37.7 MCV 76.6 L MCH 24.8 L MCHC 32.4 RDW 14.7 H RDW Differential 39.9 Plt Count 266 MPV 9.8 Immature Gran % (Auto) 0.300 Neut % (Auto) 71.8 H Lymph % (Auto) 20.8 Wilcox % (Auto) 5.2 Eos % (Auto) 1.8 Baso % (Auto) 0.1 Absolute Neuts (auto) 7.5 Absolute Lymphs (auto) 2.18 Total Counted Not Reportable Sodium 137 Potassium 3.4 L Chloride 106 Carbon Dioxide 26.0 Anion Gap 5 BUN 12 Creatinine 0.79 Estim Creat Clear Calc 201.65 Est GFR (MDRD) Af Amer 109 Est GFR (MDRD) Non-Af 90 BUN/Creatinine Ratio 15.2 Glucose 108 H Calcium 8.5 Total Bilirubin 0.30 Direct Bilirubin 0.08 AST 18 ALT 37 Alkaline Phosphatase 87 Total Protein 6.8 Albumin 3.5 Globulin 3.3 Serum , Qual NEGATIVE POC Glucose 11/18/18 15:53 POC Glucose 88 Discharge Activity: Return to Normal Activity Call your doctor if you observe: Fever of 101 or Higher, Shortness of breath, Dizziness, Fainting spells, Swelling in the ankles, Chest pain, Increased palpitations (irregular heartbeat) Home Medications: Medications to take at Discharge Albuterol IH (ProAir) [Proair Hfa] 1 - 2 puff INHALATION Q6H PRN PRN 11/18/18 Budesonide/Formoterol 160/4.5 [Symbicort 160/4.5 Mcg Inhaler (SP)] 2 puff INHALATION DAILY 11/18/18 Cholecalciferol (Vitamin D3) [Vitamin D3] 5,000 unit PO DAILY 11/18/18 Duloxetine HCl 60 mg PO DAILY 11/18/18 Flaxseed Oil [Flax Oil] 1,000 mg PO DAILY 11/18/18 Levothyroxine Sodium 125 mcg PO DAILY 11/18/18 Liothyronine Sodium 5 mcg PO DAILY 11/18/18 Lorazepam [Ativan] 0.5 mg PO BID PRN PRN 11/18/18 Omeprazole 40 mg PO DAILY 11/18/18 Fludrocortisone Acetate [Florinef] 0.2 mg PO DAILYCM tablet 11/19/18 Metoprolol(XL)Succ [Toprol Xl (Beta Juan Carlos)] 25 mg PO DAILY #30 tablet 11/19/18 Following Prescrptions Were Given to Patient: Metoprolol(XL)Succ [Toprol Xl (Beta Juan Carlos)] 25 mg PO DAILY #30 tablet Other Amb Orders: Cardiology Location: None Selected Primary Care Physician: Charlie Turpin MD [STAFF PHYSICIAN] - Keep Dalila appointment Fide Mahoney NP-C [Primary Care Provider] - Patient Instructions: ED Syncope Vasovagal Disposition: Home Minutes spent on discharge:: 35 Patient Condition:: Good Medical Necessity - Tobacco Use Smoking Status: Current every day smoker Tobacco Use: Cigarettes Meaningful Use Info Meaningful Use Diagnoses (Choose all that apply): None applicable Code Visit OBSV E&M: 14497 Observation care discharge
--- NOTE | 2018-11-19 12:54 | DS.PCM_ITS ---
Discharge Date and Diagnosis - Problem List Patient Problems: Active and Suspected Problems (Last Updated 03/04/18 @ 08:18 by JANET Combs) Familial neurocardiogenic syncope (Acute) Hypokalemia (Acute) Date of Admission: 11/18/18 Date of Discharge: 11/19/18 - Primary Discharge Diagnosis Active and Suspected Problems (Last Updated 03/04/18 @ 08:18 by JANET Combs) Familial neurocardiogenic syncope (Acute) Hypokalemia (Acute) - Secondary Discharge Diagnosis Chronic Problems (Last Updated 03/04/18 @ 08:18 by YAJAIRA Combs) Neurocardiogenic syncope (Chronic) HTN (hypertension) (Chronic) Palpitations (Chronic) Hypothyroidism (Chronic) Vasovagal syncope (Chronic) Adriane's disease (Chronic) Hospital Course and Treatment Imaging Results: None Consults: Cardiology Operations: None Procedures: 2-D Echocardiogram - Interpretation Summary The study was technically difficult. Contrast injection was performed. Based upon the 2D echocardiographic and contrast enhanced images obtained there appears to be grossly normal left ventricular size, wall motion, and systolic function. The estimated ejection fraction is 55 %. The left atrium is mildly enlarged. Trivial mitral valve insufficiency. Trivial tricuspid valve insufficiency. Unable to est imate RV systolic pressure/pulmonary artery pressure due to technically difficult study. No evidence for diastolic dysfunction. Summary of Care Provided: Per HPI: The patient is a 33 year old F with history of neurocardiogenic syncope status post tilt test as negative, follows up with Dr. Turpin, on Florinef. Her Florinef was recently decreased from 0.2 mg daily to 0.2mg qoday and 0.1mg qod. Patient had 2 episodes of syncope at home, she hit her head on the ground, syncope lasted a few minutes. She woke up she knew where she was. She went to her PCPs office this afternoon and had another near syncopal episode. Subsequently had a syncopal episode in the ED. Vitals in the ED show temperature of 98.7F, heart rate 105, blood pressure 164/ 114, respiratory 25, SPO2 was 94% on room air. Admitting blood work showed RBC count of 10.5, Hb 12.2, platelet count of 266, sodium 137, potassium 3.4, chloride 106, bicarbonate 26, BUN 12, creatinine 0.79, LFTs were unremarkable. Hospital Course: 1. Autonomic dysfunction with neurocardiac syncope/HTN/morbid obesity- 33-year-old female with a history of autonomic dysfunction who is had a positive tilt test for neurocardiogenic syncope, presents with another episode of syncope. She states that her blood pressure has recently been climbing while on the Florinef so she was told to take 0.2 mg alternating with 0.1 mg of Florinef. On presentation she was given some IV fluids and her Florinef was increased to 0.2 mg daily and she is significantly improved. She denies any symptoms of lightheadedness or dizziness currently and her echo obtained by cardiology was essentially normal, as was her EKG on admission. She has a previously scheduled appointment with cardiology at the end of this month that she is to keep. In order to help manage her blood pressure in the setting of taking 0.2 mg of Florinef daily, she will be started on metoprolol succinate 25 mg daily. She is to follow-up with her primary care physician in 3 to 5 days and she will be given a referral for an electroencephalograph technician in the [facility] to assist in the management of her autonomic dysfunction. I had a 30-minute discussion with her today on lifestyle modifications in terms of her morbid obesity. Her BMI is 47.9 and she states that she is currently seeing a dietitian as her on a 1400 -calorie/day diet. 2. Her other medical diagnoses were evaluated and her home medications were continued where appropriate Patient Problems: Active and Suspected Problems (Last Updated 03/04/18 @ 08:18 by JANET Combs) Familial neurocardiogenic syncope (Acute) Hypokalemia (Acute) - Physical Exam General: Alert, Oriented x3, Cooperative, No apparent distress HEENT: Atraumatic, PERRLA, EOMI, Normocephalic Oral: Moist Mucosa Neck: Supple, No JVD Lungs: Clear to auscultation, Normal air movement, No rhonchi, No wheeze, No rales Cardiovascular: Regular rate, Regular Rhythm, Normal S1, Normal S2, No murmurs Abdomen: Soft, Non Tender, Non-Distended, No Hepato-splenomegaly, Obese Extremities: No edema, Capillary Refill Less than 3 Seconds Skin: No rashes, No breakdown Neurological: Neuro grossly intact, Sensory exam intact to light touch and pain Psych/Mental Status: Normal Affect, Appropriate Vital Signs Temp Pulse Resp BP Pulse Ox 98.5 F 74 16 154/106 H 97 11/19/18 10:57 11/19/18 11:02 11/19/18 10:57 11/19/18 10:57 11/19/18 10:57 Oxygen Delivery Method Room Air Weight: 261 lb 14.546 oz Body Mass Index (BMI) 47.9 Finger Stick Blood Glucose 88 Intake and Output for Last 24 Hours 11/17/18 11/18/18 11/19/18 23:59 23:59 23:59 Intake Total 699 / 699 1259 / 1259 Balance 699 / 699 1259 / 1259 Laboratory Tests Past 24 Hrs 11/18/18 11/18/18 11/18/18 14:59 14:59 14:59 WBC 10.5 RBC 4.92 Hgb 12.2 Hct 37.7 MCV 76.6 L MCH 24.8 L MCHC 32.4 RDW 14.7 H RDW Differential 39.9 Plt Count 266 MPV 9.8 Immature Gran % (Auto) 0.300 Neut % (Auto) 71.8 H Lymph % (Auto) 20.8 Terry % (Auto) 5.2 Eos % (Auto) 1.8 Baso % (Auto) 0.1 Absolute Neuts (auto) 7.5 Absolute Lymphs (auto) 2.18 Total Counted Not Reportable Sodium 137 Potassium 3.4 L Chloride 106 Carbon Dioxide 26.0 Anion Gap 5 BUN 12 Creatinine 0.79 Estim Creat Clear Calc 201.65 Est GFR (MDRD) Af Amer 109 Est GFR (MDRD) Non-Af 90 BUN/Creatinine Ratio 15.2 Glucose 108 H Calcium 8.5 Total Bilirubin 0.30 Direct Bilirubin 0.08 AST 18 ALT 37 Alkaline Phosphatase 87 Total Protein 6.8 Albumin 3.5 Globulin 3.3 Serum , Qual NEGATIVE POC Glucose 11/18/18 15:53 POC Glucose 88 Discharge Activity: Return to Normal Activity Call your doctor if you observe: Fever of 101 or Higher, Shortness of breath, Dizziness, Fainting spells, Swelling in the ankles, Chest pain, Increased palpitations (irregular heartbeat) Home Medications: Medications to take at Discharge Albuterol IH (ProAir) [Proair Hfa] 1 - 2 puff INHALATION Q6H PRN PRN 11/18/18 Budesonide/Formoterol 160/4.5 [Symbicort 160/4.5 Mcg Inhaler (SP)] 2 puff INHALATION DAILY 11/18/18 Cholecalciferol (Vitamin D3) [Vitamin D3] 5,000 unit PO DAILY 11/18/18 Duloxetine HCl 60 mg PO DAILY 11/18/18 Flaxseed Oil [Flax Oil] 1,000 mg PO DAILY 11/18/18 Levothyroxine Sodium 125 mcg PO DAILY 11/18/18 Liothyronine Sodium 5 mcg PO DAILY 11/18/18 Lorazepam [Ativan] 0.5 mg PO BID PRN PRN 11/18/18 Omeprazole 40 mg PO DAILY 11/18/18 Fludrocortisone Acetate [Florinef] 0.2 mg PO DAILYCM tablet 11/19/18 Metoprolol(XL)Succ [Toprol Xl (Beta Juan Carlos)] 25 mg PO DAILY #30 tablet 11/19/18 Following Prescrptions Were Given to Patient: Metoprolol(XL)Succ [Toprol Xl (Beta Juan Carlos)] 25 mg PO DAILY #30 tablet Other Amb Orders: Cardiology Location: None Selected Primary Care Physician: Charlie Turpin MD [STAFF PHYSICIAN] - Keep Dalila appointment Fide Mahoney NP-C [Primary Care Provider] - Patient Instructions: ED Syncope Vasovagal Disposition: Home Minutes spent on discharge:: 35 Patient Condition:: Good Medical Necessity - Tobacco Use Smoking Status: Current every day smoker Tobacco Use: Cigarettes Meaningful Use Info Meaningful Use Diagnoses (Choose all that apply): None applicable Code Visit OBSV E&M: 55972 Observation care discharge
== END 2018-11-19 12:48 | disposition home or self-care (01) ==
LOC: ED 16:39 → PCU 18:29
PROVIDERS: Admitting Provider Internal Medicine; Emergency Provider Emergency Medicine; Family Provider Nurse Practitioner; PCP Nurse Practitioner; Referring Provider Internal Medicine; Visit Provider Family Medicine
DX: R55 Syncope and collapse (principal); I10 Essential (primary) hypertension; E87.6 Hypokalemia; J45.909 Unspecified asthma, uncomplicated; F17.210 Nicotine dependence, cigarettes, uncomplicated; Z79.899 Other long term (current) drug therapy; Z79.51 Long term (current) use of inhaled steroids; E66.01 Morbid (severe) obesity due to excess calories; Z68.42 Body mass index [BMI] 45.0-49.9, adult; Z71.3 Dietary counseling and surveillance; E03.9 Hypothyroidism, unspecified; I49.3 Ventricular premature depolarization
CPT/HCPCS: 80048; 80076; 82962; 84703; 85025; 93005; 93306; 94640; 96360; 96361; 99218; 99285; J7030; J7040; Q9957; A4216; C8929; G0378

== ENCOUNTER → 2018-12-04 | Outpatient (CLI) | payer OTHER, SELFPAY ==
[2018-11-18 18:37] VITALS: BMI 47.9
[2018-12-01 09:52] VITALS: BMI 47.3
--- NOTE | 2018-12-04 11:19 | CT_ITS ---
STUDY: CT ABDOMEN AND PELVIS WITHOUT CONTRAST REASON FOR EXAM: Female, 33 years old. Hypertension. Evaluate for pheochromocytoma. RADIATION DOSAGE (If Supplied By Facility): CTDIvol = ( 23.52 ) mGy, DLP = ( 1145.85 ) mGycm TECHNIQUE: Transaxial images were obtained from the dome of the diaphragm to the symphysis pubis without oral contrast, and without intravenous contrast. Sagittal and coronal images were reconstructed. Individualized dose optimization techniques were used for this CT. COMPARISON: None. FINDINGS: Evaluation of the abdominal viscera is limited in the absence of intravenous contrast. The visualized lung bases are clear. The visualized portions of the heart and pericardium are within normal limits. There are no calcified gallstones present. The liver demonstrates an unremarkable unenhanced appearance. The spleen is enlarged, measuring 13.1 cm in anterior posterior dimension. The pancreas demonstrates an unremarkable unenhanced appearance. The adrenal glands are within normal limits. There are no abnormal soft tissue masses identified in the abdomen or pelvis as noncontrast exam. There are no renal or ureteral stones. There is no hydronephrosis. Normal visualized stomach. There is no bowel obstruction or inflammation. The appendix is visualized and appears normal. The aorta is normal in caliber. There is no abdominal or pelvic free air, free fluid, fluid collection or lymphadenopathy. There are no destructive osseous lesions. CT/Abdomen/Pelvis without Cont IMPRESSION: No adrenal mass or soft tissue mass identified on this noncontrast CT to suggest a pheochromocytoma. Splenomegaly. Electronically Signed: Ortega Cohen, at 17:14 EDT Tel , Service support ,
== END | disposition home or self-care (01) ==
LOC: CT 11:15
PROVIDERS: Family Provider Nurse Practitioner; PCP Nurse Practitioner; Referring Provider Nurse Practitioner; Visit Provider Nurse Practitioner
DX: I10 Essential (primary) hypertension (principal)
CPT/HCPCS: 74176

== ENCOUNTER → 2018-12-28 | Outpatient (CLI) | payer OTHER, SELFPAY ==
[2018-12-01 09:52] VITALS: BMI 47.3
--- NOTE | 2018-12-28 07:09 | CT_ITS ---
STUDY: CT BRAIN WITHOUT CONTRAST REASON FOR EXAM: Female, 33 years old. Dizziness, syncope, migraine headaches RADIATION DOSAGE (If Supplied By Facility): CTDIvol = ( 44.99 ) mGy, DLP = ( 745.49 ) mGycm TECHNIQUE: Transaxial CT imaging of the brain was performed without administration of intravenous contrast material. Individualized dose optimization techniques were used for this CT. COMPARISON: No relevant priors. FINDINGS: Normal soft tissue structures. Normal calvarium. Normal size ventricles and extra-axial spaces for the patient's age. Normal white matter tracts of the cerebral hemispheres. Normal basal ganglia and thalami. Normal brainstem. Normal cerebellum. There is no intracranial hemorrhage. There are no findings of an acute ischemic infarction. Normal visualized paranasal sinuses. CT/Brain/Head without Contrast IMPRESSION: Normal unenhanced CT scan of the brain. Electronically Signed: Natan Pulido MD at 7:39 EDT , Service support ,
== END | disposition home or self-care (01) ==
LOC: CT 07:06
PROVIDERS: Family Provider Nurse Practitioner; PCP Nurse Practitioner; Referring Provider Nurse Practitioner; Visit Provider Nurse Practitioner
DX: R55 Syncope and collapse (principal)
CPT/HCPCS: 70450

== ENCOUNTER → 2019-09-03 10:56 | Outpatient (CLI) | payer SELFPAY ==
[2019-04-18 15:10] VITALS: BMI 49.7
[2019-09-03 12:02] LABS: T4 Free Direct 1.04 ng/dL (0.76-1.46); Thyroid Stim Hormone (TSH) 3.93 uIU/mL (0.358-3.74)
== END ==
PROVIDERS: PCP Nurse Practitioner; Referring Provider Internal Medicine Endocrinology, Diabetes & Metabolism; Visit Provider Internal Medicine Endocrinology, Diabetes & Metabolism
DX: E03.8 Other specified hypothyroidism (principal)
CPT/HCPCS: 36415; 84439; 84443; 84481

== ENCOUNTER → 2019-12-12 11:02 | Outpatient (CLI) | payer SELFPAY ==
[2019-10-19 10:44] VITALS: BMI 48.4
--- NOTE | 2019-12-12 13:05 | STRESSREP ---
Stress Test Report Date: 12-12-2019 Procedure: Exercise tolerance test Indications: Chest pain Consent: Per the patient Procedure: The patient exercised on a Wilber protocol for 4 minutes completing stage I and 1 minute of stage II achieving a peak heart rate of 173 bpm (92 % predicted maximal heart rate) with a peak blood pressure 122/70 mmHg and a peak MET capacity of approximately 5 mET's. The baseline ECG demonstrated normal sinus rhythm. The peak exercise ECG demonstrated no obvious ECG changes. There was a rare PVC during exercise and an occasional PVC during recovery. The functional capacity was considered decreased. The patient had no complaint of chest discomfort during exercise or recovery. The examination was discontinued secondary to dyspnea. Impression: 1. Technically adequate (percent predicted maximal heart rate greater than 85%) exercise tolerance test 2. Peak exercise ECG with no obvious ECG changes 3. There was a rare PVC during exercise and occasional PVC during recovery This note was generated with [employer] software. It may contain incorrect words, spelling, and punctuation that were not noted in checking the note before signing.
== END ==
PROVIDERS: PCP Nurse Practitioner; Referring Provider Physician Assistant Medical; Visit Provider Physician Assistant Medical
DX: I10 Essential (primary) hypertension (principal); R07.9 Chest pain, unspecified; R00.2 Palpitations
CPT/HCPCS: 93017

== ENCOUNTER 2019-12-24 11:25 | Emergency (ER) | payer SELFPAY ==
[2019-12-15 10:18] VITALS: BMI 48.4
[2019-12-24 11:26] VITALS: BP 147/100; PULSE 86; RESP 18; TEMP 36.6; O2SAT 98; BMI 45.3
--- NOTE | 2019-12-24 11:59 | EKG12_ITS ---
Test Reason : ANXIETY Blood Pressure : / mmHG Vent. Rate : 070 BPM Atrial Rate : 070 BPM P-R Int : 134 ms QRS Dur : 082 ms QT Int : 376 ms P-R-T Axes : 028 013 019 degrees QTc Int : 406 ms Normal sinus rhythm Normal ECG Confirmed by ARLENE ARTHUR, DIMITRIS ([id number]), editor continuity and script SABINE CISNEROS ([id number]) on 12/27/2019 9:25:42 AM Referred By: ALEJANDRO Confirmed By:DIMITRIS JACOBS MD
--- NOTE | 2019-12-24 11:59 | RAD_ITS ---
STUDY: X-RAY CHEST REASON FOR EXAM: Female, 34 years old. Syncope TECHNIQUE: Frontal view of the chest COMPARISON: 04/21/2018 FINDINGS: The lungs are clear. There are no pleural effusions. There is no pneumothorax. The heart is normal in size. There is stable scoliosis noted in the spine. RAD/Chest 1 View (Portable) IMPRESSION: No acute thoracic pathology. Electronically Signed: Ortega Cohen, at 13:27 EDT Tel , Service support ,
--- NOTE | 2019-12-24 12:01 | ED.DCSUM_ITS ---
History of Present Illness Chief Complaint: Anxiety Informant: Patient Onset: Yesterday Narrative: Patient is a 34-year-old female with history of ulcerative colitis, migraines, GERD, hypertension, pots, anxiety, neuro-neurogenic syncope, hypothyroid and palpitations presenting for worsening anxiety and syncopal episode. Last night patient was going upstairs to go to bed when she started to feel lightheaded. She was crawling up the stairs and then passed out. She states she is on the ground going in and out of consciousness for about 20 minutes. This is a usual for her out for couple minutes before her significant other can get her up. She states after that she was having abnormal thoughts and feeling paranoid. She felt that the mirrors were looking at her and that her granola bar was evil. She still has a generalized feeling of paranoia but denies any suicidal homicidal thoughts. She did take p.o. Ativan which is a prescription for which did not really help. In addition she has some associated nausea, shaking and fluttering in her chest. She states the symptoms are a little atypical of her normal anxiety attacks and palpitations. She denies any recent medication changes or foods. She recently relocated to [place] from [place] and does not currently have a psychiatrist or psychologist to follow with. Her primary care provider has been managing her psychiatric medications. Past Medical History - Allergies and Home Meds Allergies/Adverse Reactions: Allergies No Known Allergies Allergy (Verified 12/24/19 11:43) Primary Care Physician: [facility]GROUP OF PHYSICIANS] - Fide Mahoney NP-C [Primary Care Provider] - Past Medical History: - - Ulcerative colitis, migraines, GERD, hypertension, anxiety, pots, neurocardiogenic syncope, hypothyroid, palpitations Surgical History: no surgical history Lives: Spouse/ Significant Other Smoking Status: Never smoker - Family History Maternal Family History: Family History (Last Reviewed 12/15/19 @ 09:56 by Nisha Gupta) Father CVA (cerebral vascular accident) S/P AVR (aortic valve replacement) Mother Hypertension Psoriasis Grandfather Myocardial infarction Cancer Family History: Reports: Hypertension Paternal Family History: Family History (Last Reviewed 12/15/19 @ 09:56 by Nisha Gupta) Father CVA (cerebral vascular accident) S/P AVR (aortic valve replacement) Mother Hypertension Psoriasis Grandfather Myocardial infarction Cancer Family History: Reports: Heart Disease, Stroke Review of Systems General: Reports: Malaise, - - Syncope. Denies: Chills, Fever, Sweats Eyes: Denies: Visual changes - bilaterally, Diplopia ENT: Denies: Rhinorrhea, Sore throat Cardiovascular: Reports: Palpitations. Denies: Chest pain Respiratory: Denies: Dyspnea, Cough, Dyspnea on exertion Gastrointestinal: Reports: Nausea. Denies: Abdominal pain, Vomiting, Diarrhea, Melena, Hematochezia Genitourinary: Denies: Dysuria, Hematuria, Frequency Musculoskeletal: Denies: Back pain, Extremity Pain Skin: Denies: Rash, Wounds Neurological: Denies: Headache, Weakness, Numbness Psych: Reports: Anxiety. Denies: Depression, Suicidal thoughts, Suicidal ideations Physical Exam Vital Signs/Narrative: Vital Signs Temp Pulse Resp BP Pulse Ox 12/24/19 11:26 97.8 F 86 18 147/100 H 98 Inital Vital Signs reviewed: Yes General: Well nourished, Well developed, No Acute Distress Head: Normocephalic, Atraumatic Eyes: Perrl, EOMI ENT: Moist mucous membranes, No rhinorrhea, TM's clear Neck: Supple, Nontender, No JVD Cardiovascular: Regular rate, Regular rhythm, No murmurs Respiratory: No distress, CTA bilaterally, Chest nontender Abdomen: Soft, Nontender, Nondistended, Normal bowel sounds Back: Nontender, Normal Inspection Extremities: Nontender, No edema Skin: Normal color, No rash Neurological: Alert, Oriented x3, Cranial nerves II-XII grossly intact, Normal Strength, Normal Sensation Psychological: Normal affect, Normal Mood, - - Slightly anxious but answering questions appropriately.. Negative for: Tearful, Agitated Diagnostic/Tx/Re-eval Chest X-Ray - ED: 1 View, Read by ED Physician, Read by Radiologist, No Acute Disease Clinical Impression(s) from Imaging Studies Chest X-Ray 12/24/19 11:59 IMPRESSION: No acute thoracic pathology. Electronically Signed: Ortega Cohen, at 13:27 EDT Tel , Service support , Laboratory Data 12/24/19 12/24/19 12/24/19 12:15 12:15 12:19 WBC 7.1 RBC 4.86 Hgb 10.9 L Hct 36.6 L MCV 75.3 L MCH 22.4 L MCHC 29.8 L RDW Std Deviation 42.1 RDW Coeff of Remi 15.8 H Plt Count 256 MPV 9.9 Immature Gran % (Auto) 0.100 Neut % (Auto) 62.5 Lymph % (Auto) 30.1 [place] % (Auto) 6.2 Eos % (Auto) 0.8 Baso % (Auto) 0.3 Absolute Neuts (auto) 4.4 Absolute Lymphs (auto) 2.13 Nucleated RBC % 0 Sodium Potassium Chloride Carbon Dioxide Anion Gap BUN Creatinine Estim Creat Clear Calc Est GFR (MDRD) Af Amer Est GFR (MDRD) Non-Af BUN/Creatinine Ratio Glucose Calcium Total Bilirubin AST ALT Alkaline Phosphatase Troponin I Total Protein Albumin Globulin Albumin/Globulin Ratio TSH Urine Color Yellow Urine Clarity Sl. Cloudy Urine pH 7.0 Ur Specific [place] 1.005 Urine Protein Negative Urine Glucose (UA) Normal Urine Ketones Negative Urine Occult Blood 10 H Urine Nitrite Negative Urine Bilirubin Negative Urine Urobilinogen Normal Ur Leukocyte Esterase 500 H Urine RBC 0-5 SEEN Urine WBC 0-5 SEEN Ur Squamous Epith Cells 0-5 SEEN Urine Bacteria RARE Urine Mucus 0 SEEN Urine Test Negative POC Glucose 12/24/19 12/24/19 12:19 12:41 WBC RBC Hgb Hct MCV MCH MCHC RDW Std Deviation RDW Coeff of Remi Plt Count MPV Immature Gran % (Auto) Neut % (Auto) Lymph % (Auto) [place] % (Auto) Eos % (Auto) Baso % (Auto) Absolute Neuts (auto) Absolute Lymphs (auto) Nucleated RBC % Sodium 141 Potassium 3.9 Chloride 113 H Carbon Dioxide 23.0 Anion Gap 5 BUN 8 Creatinine 0.75 Estim Creat Clear Calc 85.17 Est GFR (MDRD) Af Amer 115 Est GFR (MDRD) Non-Af 95 BUN/Creatinine Ratio 10.7 Glucose 105 Calcium 8.8 Total Bilirubin 0.50 AST 11 L ALT 18 Alkaline Phosphatase 88 Troponin I < 0.015 Total Protein 7.0 Albumin 3.9 Globulin 3.1 Albumin/Globulin Ratio 1.3 TSH 1.09 Urine Color Urine Clarity Urine pH Ur Specific [place] Urine Protein Urine Glucose (UA) Urine Ketones Urine Occult Blood Urine Nitrite Urine Bilirubin Urine Urobilinogen Ur Leukocyte Esterase Urine RBC Urine WBC Ur Squamous Epith Cells Urine Bacteria Urine Mucus Urine Test POC Glucose 88 - Rhythm Strip Rhythm Strip: Sinus Rhythm Rate: 70 Ectopy: None - EKG Initial EKG Interpretation: Sinus Rhythm, - - Normal sinus rhythm at a rate of 70 Normal intervals Normal axis Normal ST segments - Medical Decision Making Patient is evaluated for increased anxiety and syncopal episode. Patient states she was on the ground for about 20 minutes but she was actually going in and out of consciousness. She does have extensive history of syncope and anxiety but these feel different today.Work-up including EKG, chest x-ray, CBC, CMP, and TSH are grossly unremarkable. Patient was given IV fluids in the emergency room. UA shows 500 leukoesterase with rare bacteria and 0-5 white blood cells. Patient does not have any associated abdominal or flank pain. Urine culture was not sent as patient is low risk and does not have severe symptoms. She will be treated empirically for a UTI with Keflex. [facility] Patient is also given IV Zofran. She is initially ordered IV Ativan but does not require it. On reevaluation patient states she is feeling better. She be discharged home to follow-up with her primary care doctor. She remains hemodynamically stable in the emergency room. Given patient's anxiety and recent relocation to the area, she is evaluated by case management. Patient is given an intake appointment with the counseling center for further psychiatric care. Patient does not require emergent inpatient psychiatric care at this time. Patient is counseled on signs and symptoms requiring return to the emergency room. Patient verbalizes agreement and understand this plan. Patient discharged home in stable and improved condition. ED Disposition - Plan for ED Patient: Disposition: Home or Assisted Living Diagnosis: UTI (urinary tract infection), Syncope, Anxiety Instructions: ED Panic Attack, ED Fainting Uncertain Cause, ED CYSTITIS Female Adult Prescriptions: Cephalexin [Keflex] 500 mg PO BID #10 cap Transmission Status: Received by [id number] Referrals: Fide Mahoney NP-C [Primary Care Provider] - [facility]GROUP [facility] PHYSICIANS] - Additional Instructions: You have an intake appointment scheduled for the counseling center on January 10. Follow-up with your primary care doctor as needed before that. Return the emergency room with any worsening symptoms.
[2019-12-24 12:27] LABS: Mucous, Urine 0 SEEN /hpf (<or=2+)
--- NOTE | 2019-12-24 12:30 | ED.RN ---
While in room with pt, pt states she was getting dizzy, pt was already in supine position. hose tender placed on pt, also placed cool wash cloth on her forehead. pt then had a syncopal episode, placed in trendelenburg position. blood surgar taken, , notified Dr. Leroy of incident. pt awoke and feeling better. vital signs at 1232 -118/78, 66, 18, 97% on RA. at 1235 113/71, 62, 25, 97% on RA, at 1240- 112/90, 64, 26, 99% on RA.
[2019-12-24 12:32] LABS: Absolute Lymphocyte Count 2.13 X10^3/uL (0.83-4.51); Absolute Neutrophil Count 4.4 X10^3/uL (2.0-7.7); Basophil# 0.02 X10^3/uL; Basophil% 0.3 % (0-1); Eosinophil# 0.06 X10^3/uL; Eosinophils% 0.8 % (0-5); Hematocrit 36.6 % (37-47); Hemoglobin 10.9 g/dL (12.0-15.0); Lymphocyte # 2.13 X10^3/ul (4.0); Lymphocyte % 30.1 % (19-41); Mean Corp Hgb Conc 29.8 g/dL (32-36); Mean Corpuscular Hgb 22.4 pg (27.0-32.0); Mean Corpuscular Volume 75.3 fL (81-99); Mean Platelet Vol. 9.9 fl (6.2-12.0); Monocyte# 0.44 X10^3/uL; Monocyte% 6.2 % (0-10); NRBC Flagged by Analyzer 0 % (0-5); Neutrophil # 4.41 X10^3/uL (2.7-7.7); Neutrophil % 62.5 % (47-70); Platelet Count 256 K/mm3 (150-450); RBC Distribution Width CV 15.8 % (11.6-14.6); RBC Distribution Width SD 42.1 fl (35.1-43.9); Red Blood Count 4.86 M/mm3 (4.2-5.4); White Blood Count 7.1 K/mm3 (4.4-11.0)
[2019-12-24] MEDS: 0.9% Normal Saline 1,000 ML 1000 ML IV (12:32)
[2019-12-24 12:34] VITALS: BP 118/78; PULSE 69; RESP 25; O2SAT 97
[2019-12-24 12:40] LABS: Color, Urine Yellow (Yellow); Glucose, Dipstick Normal (Normal); Ketone-Dipstick Negative (Negative); Leukocyte Esterase-Dipstick 500 /ul (Negative); Nitrite-Dipstick Negative (Negative); Occult Blood-Urine 10 /ul (Negative); Protein-Dipstick Negative (Negative); Specific Gravity, Urine 1.005 (1.002-1.030); Urine Bilirubin Dipstick Negative (Negative); Urine Clarity Sl. Cloudy (Clear); Urine Urobilinogen Normal (Normal)
--- NOTE | 2019-12-24 12:40 | ED.RN ---
Ativan being held due to syncopal episode.
[2019-12-24 12:42] LABS: Internal QC Validated? YES +Cl - CLEAR BKGD; Pregnancy, Urine Negative Negative
[2019-12-24 12:45] LABS: Bedside Glucose 88 mg/dL (70-110)
[2019-12-24 12:47] LABS: Bacteria RARE /hpf (None Seen); Red Blood Cells-Urine 0-5 SEEN /hpf (0-5); Squamous Epithelial Cells - UA 0-5 SEEN /hpf (5-10); White Blood Cells 0-5 SEEN /hpf (0-5)
[2019-12-24 12:53] LABS: ALB/GLOB Ratio 1.3 RATIO (0.9-2.4); AST(SGOT) 11 U/L (15-37); Alanine Aminotransfer ALT/SGPT 18 U/L (13-56); Albumin, Serum 3.9 g/dL (3.2-5.0); Alkaline Phosphatase 88 U/L (45-117); Anion Gap 5 (5-15); BUN 8 mg/dL (7-18); BUN/Creat Ratio 10.7 RATIO (10-20); Calcium,Total 8.8 mg/dL (8.5-10.1); Chloride 113 mmol/L (98-107); Creatinine, Serum 0.75 mg/dL (0.55-1.02); EST Glomerular Filtration Rate 95 mL/min (>60); Est Glom Filt Rate - Afr Amer 115 mL/min (>60); Estimated Creatinine Clearance 85.17 ml/min; Globulin 3.1 g/dL (2.2-4.2); Glucose 105 mg/dL (74-106); Potassium 3.9 mmol/L (3.5-5.1); Sodium Level 141 mmol/L (136-145); Thyroid Stim Hormone (TSH) 1.09 uIU/mL (0.358-3.74)
[2019-12-24] MEDS: Ondansetron 4 MG/2 ML Vial IV (13:08)
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
[2019-12-24 13:41] VITALS: BP 118/88; PULSE 72; RESP 25; O2SAT 100
[2019-12-24] MEDS: Cephalexin 250 MG Capsule 500 MG PO (14:40)
[2019-12-24 14:45] VITALS: RESP 18
== END 2019-12-24 14:46 | disposition home or self-care (01) ==
PROVIDERS: Emergency Provider Emergency Medicine; PCP Nurse Practitioner
DX: N39.0 Urinary tract infection, site not specified (principal); R55 Syncope and collapse; F41.9 Anxiety disorder, unspecified; K21.9 Gastro-esophageal reflux disease without esophagitis; I10 Essential (primary) hypertension; E03.9 Hypothyroidism, unspecified
CPT/HCPCS: 71045; 80053; 81001; 81025; 82962; 84443; 84484; 85025; 93005; 96374; 96375; 99284; J7030; A4216; J2405

== ENCOUNTER 2020-02-02 16:20 | Emergency (ER) | payer OTHER, SELFPAY ==
[2020-02-02] VITALS (8 sets, daily range): BP systolic 107–147; BP diastolic 67–110; PULSE 62–82; RESP 16–18; TEMP 35.6; O2SAT 95–100; BMI 44.4
--- NOTE | 2020-02-02 16:34 | EKG12_ITS ---
Test Reason : OD Blood Pressure : / mmHG Vent. Rate : 076 BPM Atrial Rate : 076 BPM P-R Int : 130 ms QRS Dur : 084 ms QT Int : 386 ms P-R-T Axes : 009 018 027 degrees QTc Int : 434 ms Normal sinus rhythm Minimal voltage criteria for LVH, may be normal variant Nonspecific ST abnormality Abnormal ECG Confirmed by SAVANNAH ARTHUR, MARIA TERESA ([id number]), associate entertainment editor SABINE CISNEROS ([id number]) on 02/07/2020 7:51:40 AM Referred By: SANDRO Confirmed By:MARIA TERESA NUÑEZ MD
--- NOTE | 2020-02-02 16:36 | ED.DCSUM_ITS ---
- ER Visit Summary Date of Service: 02/02/20 Chief Complaint: Suicidal gesture, medication ingestion History of Present Illness: The patient is a 34 F who presents after a suicidal gesture. Her found her with a bunch of pills coming out of her mouth and around her. The patient does not remember and states that she was in a daze. She rumors having a panic attack. She called the crisis center and they told her to come into the emergency department. She takes duloxetine, Topamax, omeprazole, Synthroid and atenolol. It is unclear as to how many of each she may have ingested. She states that they are currently selling and renovating their home, she was recently turned down for disability and is filing an appeal, they are also having financial issues. All of these are stressors caused her to have a panic attack and anxiety. Currently she states that she feels well and at her baseline. She has not significant fatigue. She has no palpitations, dizziness or lightheadedness. Physical Examination: Vital signs reviewed. HEENT exam unremarkable. Heart is regular rate and rhythm without murmurs. Lungs are clear to auscultation. Abdomen is soft and nontender. Extremities reveal no edema. Skin exam normal. Neurologic exam normal. Psychiatric exam reveals a flat affect. She is a little bit tearful. She does voice depression. She does have some suicidal thoughts. Test Results: Hemoglobin is 11 which is baseline. Potassium 3.2. AST 14. hCG, acetaminophen, salicylate, tox and alcohol are all negative Emergency Department Course and Treatment: We were able to determine possibly ho w many pills she may have been ingested by counting the patient's prescriptions and pills left that she possibly ingested 65 topiramate, 3 duloxetine, 3 atenolol and approximately 13 Synthroid pills. I discussed with poison control with these dosages with RADAR ENGINEER depression and heart rate the parameters to monitor. They recommended 6 to 10 hours of monitoring. After 4-1/2 hours of monitoring currently the patient is talking and her vital signs have been normal without bradycardia, hypotension. Her mental status has been normal. She was medicated with Tylenol for headache and given potassium to normalize her hypokalemia. At this point we will continue to monitor the patient for any RADAR ENGINEER depression or bradycardia. She will then be evaluated by crisis from a psychiatric standpoint Treatment Plan: [] Disposition: Pending Impression: Suicidal gesture, intentional medication overdose This note was generated with [employer] dictation software. It may contain incorrect words, spelling, and punctuation that were not noted in review of the chart prior to signing ED Disposition - Plan for ED Patient: Referrals: Fide Mahoney, SALES ENABLEMENT MANAGER-C [Primary Care Provider] -
[2020-02-02 16:50] LABS: Absolute Lymphocyte Count 2.81 X10^3/uL (0.83-4.51); Absolute Neutrophil Count 5.1 X10^3/uL (2.0-7.7); Basophil# 0.01 X10^3/uL; Basophil% 0.1 % (0-1); Eosinophil# 0.09 X10^3/uL; Hematocrit 36.9 % (37-47); Lymphocyte # 2.81 X10^3/ul (4.0); Lymphocyte % 32.8 % (19-41); Mean Corp Hgb Conc 29.8 g/dL (32-36); Mean Corpuscular Hgb 23.1 pg (27.0-32.0); Mean Corpuscular Volume 77.4 fL (81-99); Mean Platelet Vol. 9.7 fl (6.2-12.0); Monocyte% 5.8 % (0-10); NRBC Flagged by Analyzer 0 % (0-5); Neutrophil # 5.14 X10^3/uL (2.7-7.7); Platelet Count 262 K/mm3 (150-450); RBC Distribution Width CV 16.4 % (11.6-14.6); RBC Distribution Width SD 45.4 fl (35.1-43.9); Red Blood Count 4.77 M/mm3 (4.2-5.4); White Blood Count 8.6 K/mm3 (4.4-11.0)
[2020-02-02 17:01] LABS: Internal QC Validated? YES +Cl - CLEAR BKGD; Pregnancy, Serum, hCG Quali. NEGATIVE Negative
[2020-02-02 17:17] LABS: ALB/GLOB Ratio 1.2 RATIO (0.9-2.4); AST(SGOT) 14 U/L (15-37); Alanine Aminotransfer ALT/SGPT 25 U/L (13-56); Albumin, Serum 3.7 g/dL (3.2-5.0); Alkaline Phosphatase 96 U/L (45-117); Anion Gap 6 (5-15); BUN 5 mg/dL (7-18); BUN/Creat Ratio 6.4 RATIO (10-20); Calcium,Total 8.3 mg/dL (8.5-10.1); Chloride 109 mmol/L (98-107); Creatinine, Serum 0.78 mg/dL (0.55-1.02); EST Glomerular Filtration Rate 91 mL/min (>60); Est Glom Filt Rate - Afr Amer 110 mL/min (>60); Estimated Creatinine Clearance 81.89 ml/min; Globulin 3.2 g/dL (2.2-4.2); Glucose 91 mg/dL (74-106); Potassium 3.2 mmol/L (3.5-5.1); Protein, Total 6.9 g/dL (6.4-8.2); Sodium Level 141 mmol/L (136-145); Thyroid Stim Hormone (TSH) 0.55 uIU/mL (0.358-3.74)
--- NOTE | 2020-02-02 17:36 | ED.RN ---
PER DR JO, OK FOR PATIENT TO HAVE SOMETHING TO DRINK
--- NOTE | 2020-02-02 17:50 | CM.ED ---
Social Work Per Dr. Ambrosio patient is to be observed for 6-10 hours per poison control. Medical team to call crisis when patient is medically cleared for assessment and to facilitate placement. This long term care social worker updated patient on above information. Jamil RICKS, LUPE
[2020-02-02 17:56] LABS: Acetaminophen (Tylenol) Level < 2.0 ug/mL (10.0-30.0); Salicylate < 1.7 mg/dL (2.8-20.0)
[2020-02-02 18:32] LABS: Amphetamine Urine VISTA NEGATIVE (<1000 ng/mL); Barbiturate Urine VISTA NEGATIVE (< 200 ng/mL); Benzodiazepine Urine VISTA NEGATIVE (< 200 ng/mL); Cocaine Urine VISTA NEGATIVE (< 300 ng/mL); Ecstacy Urine VISTA NEGATIVE (< 500 ng/mL); Methadone Urine VISTA NEGATIVE (< 300 ng/mL); PCP Urine VISTA NEGATIVE (< 25 ng/mL); THC Urine VISTA NEGATIVE (< 50 ng/mL); Vista UDS pH Range 7
[2020-02-02] MEDS: Acetaminophen 500 MG Tablet 1000 MG PO (20:42)
[2020-02-02] MEDS: Ketorolac 30 MG/ML Syringe IV (21:29)
[2020-02-03] VITALS (20 sets, daily range): BP systolic 112–139; BP diastolic 75–101; PULSE 54–78; RESP 14–20; TEMP 37.1; O2SAT 97–100
--- NOTE | 2020-02-03 00:29 | NURSING ---
CRISIS CALLED AT [phone]
--- NOTE | 2020-02-03 00:58 | ED.RN ---
chart faxed to crisis at this time
--- NOTE | 2020-02-03 01:35 | ED.RN ---
patient on the phone with crisis at this time
--- NOTE | 2020-02-03 02:02 | ED.VISSUMM ---
- ER Visit Summary Date of Service: 02/03/20 Chief Complaint: [] History of Present Illness: The patient is a 34 F [] Physical Examination: [] Test Results: [] Emergency Department Course and Treatment: Treatment Plan: 0203: I spoke with crisis after their evaluation the patient. They are concerned the seriousness of her ingestion. They do agree patient would require inpatient management. Patient's pink slip was filled out. Pending placement at this time. As noted she is medically cleared with vitals being stable. Disposition: [] Impression: 1. Intentional ingestion 2. Suicidal gesture This note was generated with [employer] dictation software. It may contain incorrect words, spelling, and punctuation that were not noted in review of the chart prior to signing ED Disposition - Plan for ED Patient: Referrals: Fide Mahoney NP-C [Primary Care Provider] -
--- NOTE | 2020-02-03 03:11 | ED.RN ---
patient information faxed to [facility] at this time
--- NOTE | 2020-02-03 09:09 | NURSING ---
[facility], CALLED. THEY WILL NOT ACCEPT PATIENT BECAUSE THEY ARE OUT OF NETWORK FOR HER INSURANCE. RN MADE AWARE. GEGE ALSO WILL CALL CRISIS AND MAKE THEM AWARE
--- NOTE | 2020-02-03 09:50 | ED.RN ---
LEANDRA MARK CALLED TO VERIFY WHAT ADL[facility] PT CAN DO ON HER OWN. PT VERBALIZES THAT SHE IS ABLE TO TAKE CARE OF HERSELF, BUT PREFERS TO HAVE A WHEELCHAIR AVAILABLE IN CASE SHE PASSES OUT. SHE REPORTS SHE HAS A POTS DIAGNOSIS.
[2020-02-03] MEDS: Fludrocortisone Acetate 0.1 MG Tablet 0.2 MG PO (10:58)
[2020-02-03] MEDS: Pantoprazole Sodium 40 MG Tablet PO (10:58)
[2020-02-03] MEDS: Atenolol 25 MG Tablet PO (10:59)
--- NOTE | 2020-02-03 11:23 | ED.RN ---
PT REQUESTED TO TAKE HOME MEDICATIONS. DR CAMARGO MADE AWARE, SHE REPORTS IT IS OKAY TO TAKE HOME MEDS EXCEPT FOR MEDS SHE OVERDOSED ON WHICH INCLUDE DULOXETINE, SYNTHROID AND TOPIRAMATE. EXPLAINED TO PT, VERBALIZED UNDERSTANDING.
--- NOTE | 2020-02-03 12:25 | CM.ED ---
SOCIAL WORK Received call from Summer with [facility] requesting COVID test. Updated staff. Rey Carbajal, AIRCRAFT ENGINE MECHANIC SUPERVISOR, REPORT MANAGER
[2020-02-03] MEDS: LORazepam 1 MG Tablet PO (15:17)
--- NOTE | 2020-02-03 15:38 | ED.RN ---
PT TEARFUL, STATING SHE IS UPSET THAT IT TOOK SO LONG TO GET HER MEDS FROM PHARMACY AND HER LUNCH. APOLOGIZED TO PT, EMOTIONAL SUPPORT GIVEN. PT STATES SHE IS VERY ANXIOUS AND IS READY TO GO HOME. SHE REPORTS THAT WHEN SHE OVERDOSED ON HER MEDS, SHE BLACKED OUT AND DIDN'T REMEMBER TAKING THE MEDS. SHE REPORTS THAT SHE DOES NOT WANT TO BE HERE ANYMORE AND THAT SHE IS NO LONGER SUICIDAL. INFORMED THAT SINCE SHE DID MAKE AN ATTEMPT TO END HER LIFE, THAT SHE WAS NOT ABLE TO GO HOME. EDUCATION ON PINK SLIP PROVIDED. INFORMED DR CAMARGO OF CONVERSATION, ATIVAN ORDERED.
[2020-02-03 16:17] LABS: Probe Check PASS; Specimen Processing Control PASS
--- NOTE | 2020-02-03 18:31 | CM.ED ---
SOCIAL WORK Informed by nursing, have not heard back from [facility] at this time regarding accepting information. Call to [facility], spoke with Summer. Summer requesting copy of [place] and COVID results be faxed. Requested information faxed. Summer states once [place] received will call and set up transport for patient. Summer rizzo will call this worker back with [facility] for transport and accepting information. Staff kristian. Rey Carbajal, COVER CREASER, SEED LABORATORY ASSISTANT
--- NOTE | 2020-02-03 18:37 | CM.ED ---
SOCIAL WORK Received call back from Summer with [facility]. Patient accepted by Dr. Rosales to the Adult Wing room 207 B. Nurse to call report to . Summer states attempted to get transport and would be unable to arrive until midnight tonight. [place] to set up transport. Plan: [facility]- inpatient psych D. Solomon, DIRECTOR AERONAUTICS COMMISSION, MEDICAL IMAGING TECHNICIAN
== END 2020-02-03 20:29 ==
LOC: ED 16:59
PROVIDERS: Emergency Medicine; Emergency Provider Emergency Medicine; PCP Nurse Practitioner
DX: R45.851 Suicidal ideations (principal); T65.92XA Toxic effect of unspecified substance, intentional self-harm, initial encounter
CPT/HCPCS: 80053; 80307; 80320; 80329; 84443; 84703; 85025; 87635; 93005; 94799; 96374; 99285; A4216; G0480; U0003

== ENCOUNTER 2020-02-21 09:00 | Outpatient (RCR) | payer OTHER, SELFPAY ==
[2020-02-02 16:21] VITALS: BMI 44.4
--- NOTE | 2020-02-21 09:05 | BH.SGPN.GN ---
This psychotherapy group was provided via telehealth using two-way, real-time interactive telecommunication technology between the patients and the provider.?The interactive telecommunication technology included audio and video.? ?The patient was offered telemedicine as an option for care delivery during the COVID-19 pandemic and consented to this option. ?Patient location: [place] ?Provider located at [facility] Behaviors/Verbalizations/Mental Status: []Client alert and oriented, neatly dressed and groomed. Eye contact good. Motor activity appropriate. Speech within normal limits. Affect congruent to mood and topics being discussed-tearful, mood depressed and anxious. Thoughts linear, logical, no signs of hallucinations or delusions. Reviewed client?s symptom tracker, no risk for suicidal ideation, plan, or intent as of 02/21/20. Client Response/Progress/Benefit: []Client responded well to session, attentive and receptive to emotional support from group. Client reports feeling weepy but not too bad this morning. Client's first day of IOP tx and shared a recent suicide attempt via overdose is what brought client to IOP. Client shared IOP was recommended by client's outpatient therapist. Client stated she was anxious to start IOP because client had a traumatizing experience during her inpatient hospitalization. Client receptive to emotional support and reinforcement of the courage it took to come to IOP. Client shared she wants to work on managing her anxiety, depression, and PTSD. Client reported she has been feeling very emotional and wants to learn how to regulate her moods more effectively. Client shared deep breathing and grounding has been helpful, but client would like to learn additional skills. Appeared to benefit from connecting with peers and receiving emotional support. Will continue IOP tx to prevent decompensation, improve emotional regulation skills, and improve daily functioning. Narrative Note: []
--- NOTE | 2020-02-21 09:22 | BH.MTP_ITS ---
Master Treatment Plan - Patient Information Program Physician:: Dr. Kari Tsang Primary Therapist:: Kavya Harris - Psychiatric Diagnoses Psychiatric Diagnoses:: Major depressive disorder, recurrent, severe without psychosis; generalized anxiety disorder; Rule out dependent personality traits. Diagnosis Code(s):: F 33.2 - Estimated LOS Estimated LOS (in weeks):: 6 Problem/Goal #1 - Problem/Goal #1 Stated Goal:: Client will decrease depressive symptoms, isolation, guilt, and passive wishes due to major depression disorder. Description of Barriers: Client has numerous stressors occurring in her life including financial and medical issues. Client reports because of this, she and her have been experiencing some tension. Client endorses numerous negative core beliefs and reports feeling like a burden. Client reports memory issues, difficulty concentrating, difficulty regulating her emotions, and isolative behaviors. Client used to be very active and enjoy many things in life, but currently reports finding no yessenia in things. Client has limited mobility and she recently gave up her license. Functional Impact: Client is a 34-year-old female with a history of ADHD, MDD, and BHUPENDRA. Client was recently hospitalized at [facility] following a suicide att empt via overdose. Client reports she does not remember taking the pills and that her found her and took client to the ER. Client shared her outpatient therapist recommended IOP tx. Client has experienced numerous psychosocial stressors including financial loss, losing job, health issues, loss of license, and decreased mobility. Client currently endorses a depressed mood, crying spells, anhedonia, feeling like a burden, low energy, isolative behaviors, and passive wishes of . Denies any active suicidal ideations since discharge from [facility], but shared she still sometimes has thoughts that she wishes she would have succeeded in killing herself. Client also endorses anxiety on a daily basis with history of panic attacks. Client reports her mental health symptoms are interfering with client's ability to function. Goal Relevant Strengths/Supports: Client presents as a kind, motivated, and intelligent woman who reports a desire to improve her mental health. Client is established with outpatient therapy and has several social supports who provide hope to client. Client has knowledge of grounding coping skills and used to find pleasure in crafting. - Objectives Objective #1 Stated Objective: Client will learn and utilize 2-3 healthy coping strategies to better manage depressive symptoms as shown by preventing decompensation on client's DSM-5 scores for depression. Interventions: Through group and individual sessions, therapist will help client identify triggers and warning signs of depression and emotional dysregulation including emotional, physical, and behavioral changes. Therapist will teach client various coping skills to manage her symptoms and give client tangible resources to use to regulate emotions. Therapist will use cognitive restructuring techniques and help client gain awareness of negative thoughts that reinforce guilt and depression. Therapist will provide psychoeducation on maintenance cycles and help client learn ways to break unhealthy maintenance cycles. Therapist will help client incorporate behavioral activation and assist client in setting SMART goals. Discharge Criteria: Client will have met this goal when she can report learning and using at least 2 coping skills to manage depressive symptoms. Additionally, client will have met this goal if she can prevent decompensation of depressive symptoms. Target Date: 04/03/20 Review Date: 03/22/20 Status: open Objective #2 Stated Objective: Client will identify at least 2-3 negative self-talk messages used to reinforce depression/guilt and replace thoughts with positive, realistic messages. Interventions: Therapist will help client identify distorted, negative beliefs about self and replace with more realistic, affirmative messages. Therapist will use CBT to help client increase insight to the connection between thoughts, emotions, and behaviors. Therapist will encourage client to practice thought challenging and self-compassion. Discharge Criteria: Client will have achieved this goal when can verbalize at least 2 negative self-talk messages and effectively replace those thoughts with affirmative messages. Target Date: 04/03/20 Review Date: 03/22/20 Status: open Problem/Goal #2 - Problem/Goal #2 Stated Goal:: Client will reduce overall frequency, intensity, and duration of anxiety so that daily functioning is not impaired. Description of Barriers: Client has numerous stressors occurring in her life including financial and medical issues. Client reports because of this, she and her have been experiencing some tension. Client endorses numerous negative core beliefs and reports feeling like a burden. Client reports memory issues, difficulty concentrating, difficulty regulating her emotions, and isolative behaviors. Client used to be very active and enjoy many things in life, but currently reports finding no yessenia in things. Client has limited mobility and she recently gave up her license. Functional Impact: Client is a 34-year-old female with a history of ADHD, MDD, and BHUPENDRA. Client was recently hospitalized at [facility] following a suicide attempt via overdose. Client reports she does not remember taking the pills and that her found her and took client to the ER. Client shared her outpatient therapist recommended IOP tx. Client has experienced numerous psychosocial stressors including financial loss, losing job, health issues, loss of license, and decreased mobility. Client currently endorses a depressed mood, crying spells, anhedonia, feeling like a burden, low energy, isolative behaviors, and passive wishes of . Denies any active suicidal ideations since discharge from [facility], but shared she still sometimes has thoughts that she wishes she would have succeeded in killing herself. Client also endorses anxiety on a daily basis with history of panic attacks. Client reports her mental health symptoms are interfering with client's ability to function. Goal Relevant Strengths/Supports: Client presents as a kind, motivated, and intelligent woman who reports a desire to improve her mental health. Client is established with outpatient therapy and has several social supports who provide hope to client. Client has knowledge of grounding coping skills and used to find pleasure in crafting. - Objectives Objective #1 Stated Objective: Client will identify 2-3 anxiety warning signs and 2 calming coping skills to use when feeling anxious and to prevent decompensation of DSM-5 scores. Interventions: Therapist will help client increase awareness of anxiety warning signs and triggers by providing psychoeducation and exploring client's personal experiences. Therapist will teach client various calming strategies to promote emotional regulation and reduction of anxiety. Therapist will assist client in identifying stressors and teach client techniques to reduce, remove, or accept stressors to reduce anxiety. Therapist will discuss the importance of self-care and self-compassion. Discharge Criteria: Client will have accomplished this goal when can report at least 2 warning signs for anxiety and state using 2 calming strategies to manage symptoms. Additionally, client's DSM-5 scores for anxiety will maintain to show prevention of decompensation. Target Date: 04/03/20 Review Date: 03/22/20 Status: open Objective #2 Stated Objective: Client will identify 2-3 cognitive distortions that lead to rumination and learn 2-3 ways to manage these thoughts to better manage anxiety. Interventions: Therapist will provide education on the most common cognitive distortions and teach client the connection between thoughts, emotions, and feelings. Therapist will assist client in identifying, challenging, and replacing dysfunctional thoughts with positive, more realistic thoughts. Therapist will use CBT and DBT techniques to help client gain awareness of thin alex errors and learn how to more effectively handle negative thoughts. Discharge Criteria: Client will have accomplished this goal when can identify at least 2 cognitive distortions and at least 2 coping skills to manage negative thoughts. Target Date: 04/03/20 Review Date: 03/22/20 Status: open
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
--- NOTE | 2020-02-21 10:15 | BH.SGPN.GN ---
This psychotherapy group was provided via telehealth using two-way, real-time interactive telecommunication technology between the patients and the provider. The interactive telecommunication technology included audio and video. The patient was offered telemedicine as an option for care delivery during the COVID-19 pandemic and consented to this option. Patient location: [place] Provider located at [facility] Behaviors/Verbalizations/Mental Status: []Client alert and oriented, casually dressed and appropriately groomed. Eye contact fair. Motor activity appropriate. Speech within normal limits. Affect constricted, mood depressed and anxious. Thoughts linear, logical, no signs of hallucinations or delusions. Client Response/Progress/Benefit: []Pt receptive to session, provided input throughout discussion and listened attentively to peers. Provided input as the group brainstormed the positive and negative aspects of stress on physical and mental health. Group did well to identify that the benefits of stress include: motivates us, heightened senses/focus, increased productivity, and keeps us safe. Client identified her current stressors that impact her the most include: money problems, numerous health issues, loss of independence due to health problems, being recently laid off, and her grandma recently passing away. Pt reported recently when she was overwhelmed with stress she attempted suicide. Pt stated she wants to learn healthier ways to manage her stress levels. Seemed to benefit from increased awareness of personal stressors and understanding impact of stress of the mind and body. First day in IOP. Recommend to continue IOP tx to increase healthy coping skills, maintain safety, and prevent decompensation. Narrative Note: []
--- NOTE | 2020-02-21 11:17 | BH.SGPN.GN ---
Behaviors/Verbalizations/Mental Status: [] Client alert and oriented, casually dressed and groomed. Eye contact good, at times tearful. Motor activity appropriate. Speech within normal limits, quiet. Affect congruent, mood depressed, anxious. Thoughts linear, logical, no signs of hallucinations or delusions. Client Response/Progress/Benefit: [] Client responded well to session and remained actively engaged throughout AEB client listening attentively to others, providing input, and taking notes during session. Client actively listening during discussion about the 4 A's of managing stress and continued to take notes throughout. Noted that she has struggled with her supports not being able to accept her limitations which has made accepting them for herself more difficult in the past. Identified she wants to work on her ability to accept that her decline in physical health is a part of her life now but begin to alter her perspective by reminding herself that ?there are still plenty of things I can do despite the limitations?. Client seemed to benefit from increased awareness of the impact of stress on mental health and increasing repertoire of stress management strategies. Will continue IOP tx to promote use of healthy coping skills, better cope with current stressors, as well as prevent decompensation. Narrative Note: []
--- NOTE | 2020-02-21 14:06 | BH.COMM_ITS ---
Communication Note - Communication with Client Communication Note: Completed intake paperwork with pt today. Completed the [place] Suicide Severity Scale (CSSR-S) Lifetime Recent to assess for suicidal risk. Client has history of one previous suicide attempt which occurred on 02/03/20. Client stated she took ?all my prescription medications at once? due to feeling overwhelmed by numerous life stressors. Client stated her attempt was not planned and described it as impulsive and that she was ?in a daze.? Client was monitored at the ER for around 8 hours per poison control recommendation, but she did not have to get her stomach pumped. Client was taken to [facility] ER where client was medically cleared and admitted to a psychiatric hospital in [place]. Client denies any suicidal ideations, plan, or intent since her hospitalization. Client reported her , family, and pets as her reasons to live. Per the CSSR-S pt has a high risk for suicide due to her multiple life stressors and lethality of her attempt. Client's suicidal lethality will be continued to monitored throughout the program. Client willing to plan for safety. Client denies access to any weapons. Client feels able to maintain safety, agreeable to call 911 or go to nearest emergency room if feels unable to maintain safety.
--- NOTE | 2020-02-21 14:23 | BH.MDN_ITS ---
Multi-Disciplinary Note - Note 30-min Individual Time Started:: 12:15 Date: 02/21/20 Purpose of session/treatment goals addressed:: The purpose of this session was to gather information on client's current stressors, symptoms, and treatment goals. Another goal was to build rapport and answer client's questions. Eye Contact:: Good Motor Activity:: Appropriate Appearance:: Neat Speech:: Soft Mood:: Anxious, Dysthymic Affect:: Congruent - tearful Thoughts:: Linear, Logical, No evidence of hallucinations/delusions noted Staff Interventions:: Therapist used active listening and open-ended questions to explore client's current stressors, history, symptoms, and treatment goals. Therapist used strengths perspective to build rapport and provide emotional validation. Therapist gave client encouragement and highlighted client's resilience. Therapist taught client a grounding/self-talk technique to help with PTSD flashbacks. Client Response:: Client responded well to session, open to meeting with therapist. Client reported today went well and that she felt like it was a good environment. Client became tearful multiple times throughout session and shared I've just been so emotional. Client has experienced numerous life stressors within the last few months including: losing his job, client losing ability to drive, worsening health conditions, having to sell home, and getting rejected for disability. Client reported her anxiety, panic, and depression became too much which is what triggered client's suicide attempt. Client shared does not have any suicidal ideations currently, but she continues to struggle w ith feeling like a burden. Client stated, my and parents do so much for me. Able to challenge thoughts of being a burden during session with therapist's assistance. Client reported she would like to work on reducing her negative thinking and learning new coping skills. Client would also like to be more patient with her . Client shared right now she is quicker to anger with her , but client recognizes that this is likely because her anxiety presents as irritability. Receptive to emotional support and psychoeducation from therapist. Client stated she has been having a lot of PTSD flashbacks from her inpatient hospitalization experience. Receptive to practicing a self- talk/grounding technique to manage anxiety caused by trauma triggers. Risks/Concerns:: Client had a recent suicide attempt via overdose. Client denied history of other previous suicide attempts. Client denies any suicidal ideations, plan, or intent since her hospitalization. Client is future oriented. Client does endorse feelings of being a burden. Denies access to weapons. Reports ability to maintain safety today and feels able to call crisis should she at any point feel unable to keep herself safe. Progress Toward Goals/Plan:: Client's first day of IOP tx. Reported IOP went better than she thought today and that she ?got a lot out of it.? Client self- reported her tx goals to be reducing negative thinking and feeling like a burden, decrease irritability and impatience, and feel more ?even keeled.? Client currently endorses a depressed mood, crying spells, lack of energy, increased fatigue, negative thinking, feeling like a burden, increased irritability, panic attacks, and ruminations. Recently was hospitalized for a suicide attempt via overdose. Denies suicidal ideations since discharging and is future oriented. Reports looking forward to continuing IOP tx and plans to attend tomorrow and . Will continue IOP tx to prevent decompensation, maintain safety, and improve daily functioning. Time Stopped:: 12:33
--- NOTE | 2020-02-22 10:10 | BH.SGPN.GN ---
This psychotherapy group was provided via telehealth using two-way, real-time interactive telecommunication technology between the patients and the provider. The interactive telecommunication technology included audio and video. The patient was offered telemedicine as an option for care delivery during the COVID-19 pandemic and consented to this option. Patient location: [place] Provider located at [facility] Behaviors/Verbalizations/Mental Status: []Client alert and oriented, neatly dressed and groomed. Eye contact fair. Motor activity appropriate. Speech within normal limits. Affect constricted, mood depressed and anxious. Thoughts linear, logical, no signs of hallucinations or delusions. Client Response/Progress/Benefit: []Client attentive and providing input to discussion. Contributed during discussion on the quote connecting with impact thoughts can have on mood and behavior. Connected with the discussion about how distorted thought patterns can reinforce mental health symptoms and negatively impact self-esteem and personal relationships. Client attentive throughout the discussion on different types of thought distortions and noted that she connected with several distortions. Client stated she tends to disqualify her positives because feels guilty to accept any compliments from others. Pt reported she feels unworthy of positive comments from others. Pt reported she will laugh off compliments as a way to disqualify her strengths. Appeared to benefit from increasing awareness of cognitive distortions and how they can impact emotions and behaviors. Progress noted with increase in awareness of distorted thought patterns. Will continue IOP tx to increase healthy coping skills, identify and challenge distorted thoughts and prevent decompensation. Narrative Note: []
--- NOTE | 2020-02-22 11:11 | BH.NA_ITS ---
Physical Data - Height/Weight Height: 1.57 m Weight:: 108.862 kg Weight in Pounds: 240.0 lbs Current Medication Compliance - Medication Compliance Do you take your medication as prescribed?: Yes Nutritional History - Appetite Nutritional Instructions:: If client shows signs of a swallowing problem, weight change of 10 pounds or more in the last month, or is on a diabetic diet, the physician will review and request a dietitian consult, as appropriate. All unintentional weight loss will be referred to the physician for decision on need for dietitian consult. Describe your appetite:: Fair Additional nutritional information:: Client states she has lost 25lbs in the last month due to ulcerative colitis exacerbation. Client states she is eating bland food. Functional Assessment - Sleep Pattern Describe any problems with sleeping: Client states she sleeps well, states she sleeps 7-8 hours per night. - Activities Motor Activity:: Functional Sensory/Communication Assess - Vision Problems Do you have any vision problems?: Glasses - Communication Problems Do you have difficulty understanding what people are saying?: No Medical Problems/History - Cardiac Conditions Cardiovascular: Other (See comments) Comments:: neurocardiogenic syncope with episodes 2-3 times per day. PVC's and palpitations. - Respiratory Conditions Respiratory: Asthma, Other (See comments) Comments:: having a sleep study later this week to test for OUSMANE. - Neurological Conditions Neurological: Headaches, Other (See comments) Comments:: neurocardiogenic syncope - Metabolic Conditions Metabolic: Hypothyroidism, Other (See comments) Comments:: hx hashimotos - Gastrointestinal Conditions Gastrointestinal: Other (See comments) Comments:: ulcerative colitis - Family History Family History: Family History (Last Reviewed 12/15/19 @ 09:56 by Nisha Gupta) Father CVA (cerebral vascular accident) S/P AVR (aortic valve replacement) Mother Hypertension Psoriasis Grandfather Myocardial infarction Cancer Surgical History - Surgical History Have you had any surgeries? If so, list type and date:: No Substance Abuse - Substance Abuse Please describe substance abuse in the last 30 days:: Client states she does not drink alcohol, as it would mix with her medication. Client denies tobacco or drug use. Client states she drinks 1 can of pop per day when she is having a bad day with episodes of syncope. Mental Status Summary - Mental Status Significant Findings/Observations on Appearance and Mood:: Assessment was made via telehealth with video. Client is alert and oriented x 4. Client is cooperative with good attention span. Client appears mildly anxious. Client with normal processing. Client denies delusions/hallucinations. Client denies SI. Suicide Assessment - Suicidal Ideation Are you currently or have you been suicidal in the past?: Yes - client denies SI this date Suicidal Intentional Rating Scale (SIRS): Suicidal thoughts (past) Physician Notification: If Active suicidal thoughts/Will not contract for safety is checked, contact physician and document in the Physician Notification section below. Past Psychiatric History - MH Treatment Hx Age of first mental health symptoms: Client states she was diagnosed with anxiety in 2018, but newly diagnosed with depression after her suicide attempt in January 2020. Describe (age, circumstance, etc) any past hospitalizations: [facility] [place] after suicide attempt by taking pills in January 2020. Current providers for mental health treatment (counselor, psychiatrist, piano case and bench assembler, etc.): Therapy at [facility]. Fall Risk Assessment - Age Age: Less than 60 - Mental Status Mental Status: Willing & able to ask for assistance when needed - Physical Status Physical Status: Limb, dizziness, syncope, neurological - Impairments Impairments: Orthostatic hypotension - Elimination Elimination: Continent AND independent - Gait or Balance Gait or Balance: Walks with assistive device (e.g. cane, walker) - Hx of Falls History of falls in the past 6 months: No known history - Medications/Substances Psychotropics:: Antidepressants, Anxiolytics (e.g. benzodiazepines) Others:: Antihypertensives Medications/substances used within the past 24 hours or ordered to administer: 3 or more of the medications/substances listed above - Total Score Total Points:: 7 - client at home, being seen telehealth. Client states she uses a wheelchair at home on a regular basis due to syncope. RN Summary of Impressions - Impressions Recommendations: Include psychiatric and medical issues, treatment planning recommendations, and discharge planning needs. Impressions: Psychiatric Issues: major depressive disorder, recurrent, severe without psychosis. Generalized anxiety disorder. - Level of Care How do the client's current symptoms and functional deficits support need for this level of care?: Client reports difficulty with mental health for this entire year, stating in the last few months it has continued to get worse. Client states this year she was forced to quit her job due to her health and give up her drivers license. Client states her was fired from a good job, and after they struggled to make ends meet financially and are still strugg ling. Client states they are in the process of selling her childhood home which is stressful to her. Client reports her current state of health as a major stressor, stating she has 2-3 episodes of syncope a day and is in a wheelchair. Client states she regularly follows up with cardiology and had testing done at [facility] and her current medication regimen is all that can be done for her at this time. Client states she was in a daze and doesn't remember much about her suicide attempt in January, except her taking pills out of her mouth and waking up to many open pill bottles. Client reports feelings of being overwhelmed, fatigued, anxious, isolated, and decreased self worth. Denies SI on this date. IOP will promote gains and prevent further decompensation while providing social support and skills training.
--- NOTE | 2020-02-22 11:12 | BH.SGPN.GN ---
This psychotherapy group was provided via telehealth using two-way, real-time interactive telecommunication technology between the patients and the provider.?The interactive telecommunication technology included audio and video.? ?The patient was offered telemedicine as an option for care delivery during the COVID-19 pandemic and consented to this option. ?Patient location: [place] ?Provider located at [facility] Behaviors/Verbalizations/Mental Status: []Client alert and oriented, casually dressed. Eye contact good. Motor activity appropriate. Speech within normal limits. Affect constricted, mood dysthymic. Thoughts linear, logical, no signs of hallucinations or delusions. Client Response/Progress/Benefit: []Client was an active participant AEB client providing input throughout session and completing worksheet. Client attentive during psychoeducation and additional discussion on cognitive distortions. Client engaged in discussion about how to reframe distorted thoughts using T.H.I.N.K into more realistic, rational statements. Client worked with her small group to challenge the distortion ?I?m never going to get better.? Client shared this thought is hard for her to challenge because ?that?s how I truly feel.? Group identified distortions of black and white thinking, overgeneralizing, and catastrophizing. Group reframed the thought to ?I may not get fully better, but that doesn?t mean I can?t have a good life.? Client filled out her GAPs worksheet with the gameplan to practicing self-reflection to bring awareness to the distortions client uses. Client seemed to benefit from practicing identifying and reframing distorted thoughts. Client?s first week of IOP. Will continue IOP tx to prevent decompensation, improve mood stability, and decrease negative core beliefs. Narrative Note: []
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
--- NOTE | 2020-02-22 13:26 | BH.PSY.EVA_ITS ---
Initial Treatment Plan - Patient Information Visit Information: ADMISSION DATE: EXPECTED LOS: 4-6 weeks - Problems/Symptoms Problem #1:: Depression Symptom:: sadness, irritability, hopelessness, guilt, low energy, passive thoug hts of Problem #2:: Anxiety Symptom:: Worry, rumination, history of panic attacks
--- NOTE | 2020-02-23 09:05 | BH.SGPN.GN ---
his psychotherapy group was provided via telehealth using two-way, real-time interactive telecommunication technology between the patients and the provider. The interactive telecommunication technology included audio and video. The patient was offered telemedicine as an option for care delivery during the COVID-19 pandemic and consented to this option. Patient location: [place] Provider located at [facility] Behaviors/Verbalizations/Mental Status: []Client alert and oriented, casually dressed and appropriately groomed. Eye contact fair. Motor activity appropriate. Speech within normal limits. Affect constricted. mood anxious and depressed. Thoughts linear, logical, no signs of hallucinations or delusions. Client Response/Progress/Benefit: []Overall pt was engaged in session AEB pt listening to peers and sharing thoughts and feelings. Pt seemed distracted at times which pt stated she was not feeling well today. Pt reported her goal from last group was to catch distorted thought and reframe thought to stop the down spiral. Pt stated this morning she was able to practice that skill. Pt reported when she called IOP therapist this morning to tell the therapist she was not feeling well and would be late pt had the thought Oh no, I'm going to be late and they will kick me out. Pt stated at first she became anxious but was able to recognize the distorted thought and challenge it in the moment. Pt reported this skill helped stop the typical downward spiral that usually ends with a panic attack. Pt stated she is happy that she was able to successfully use the skills. Pt stated additional positive as her being offered a job yesterday which decreases her financial stress. Pt reported currently feeling stressed that her medical issues are flaring up so she is struggling a little this morning. Pt seemed to benefit from support from peers. Pt to continue IOP to increase healthy coping, challenge negative thought patterns and prevent decompensation. Narrative Note: []
--- NOTE | 2020-02-23 10:17 | BH.SGPN.GN ---
This psychotherapy group was provided via telehealth using two-way, real-time interactive telecommunication technology between the patients and the provider.?The interactive telecommunication technology included audio and video.? ?The patient was offered telemedicine as an option for care delivery during the COVID-19 pandemic and consented to this option. ?Patient location: [place] ?Provider located at [facility] Behaviors/Verbalizations/Mental Status: []Client alert and oriented, casually dressed and groomed. Eye contact good. Motor activity appropriate. Speech within normal limits. Affect congruent to topics discussed, mood depressed and anxious. Thoughts linear, logical, no signs of hallucinations or delusions. Client Response/Progress/Benefit: []Client was an engaged participant throughout group session, providing frequent insight to session. Client connected with the quote and giving examples of the metaphorical load one can carry. Group discussed healthy versus unhealthy coping skills and what contributes to people using unhealthy skills. The group stated unhealthy coping skills tend to be easy and habitual, temporary relief, and learned behaviors from upbringing. Client gained aware of unhealthy coping skills she has used such as distracting herself with helping others, over-working, and avoidance. Client reported ?I would continue to minimize and prevent it wasn?t a problem until I decompensated.? Client shared she know recognizes that using these skills only worsened client?s mental and physical health. Client seemed to benefit from increased awareness of importance of increasing healthy coping skills and consequences of utilizing unhealthy coping skills. Client will continue IOP tx to decrease negative thinking, improve emotional regulation skills, and prevent decompensation. Narrative Note: []
--- NOTE | 2020-02-23 11:21 | BH.SGPN.GN ---
Behaviors/Verbalizations/Mental Status: []Client alert and oriented, casually dressed and groomed. Eye contact good. Motor activity appropriate. Speech within normal limits. Affect congruent, mood anxious, dysthymic. Thoughts linear, logical, no signs of hallucinations or delusions Client Response/Progress/Benefit: []Client responded well to session, connected with materials discussed AEB taking notes and nodding, and participating in discussion. Client contributed as the group discussed the different categories of coping skills which included distraction, emotional release, grounding, self-love, and thought challenging. Provided examples for each category, but reported she struggles with the category of self-love and using distractions in order to avoid dealing with her stressors. Client participated in creating a coping skills ?menu? for the five categories of coping skills. Client's coping skill menu included: coloring, 5-senses, deep breathing, listening to positive music, tracking daily positives, and identifying distortions and challenging them. Client appeared to benefit from increasing repertoire of healthy coping skills. Client progress shown by increased ability to identify ways to begin incorporating reframing of negative thoughts. Will continue IOP tx to further decrease anxiety, improve coping repertoire and application, and improve mood stability. Narrative Note: []
--- NOTE | 2020-02-27 09:05 | BH.SGPN.GN ---
This psychotherapy group was provided via telehealth using two-way, real-time interactive telecommunication technology between the patients and the provider. The interactive telecommunication technology included audio and video. The patient was offered telemedicine as an option for care delivery during the COVID-19 pandemic and consented to this option. Patient location: [place] Provider located at [facility] Behaviors/Verbalizations/Mental Status: []Client alert and oriented, casually dressed. Eye contact good. Motor activity appropriate. Speech within normal limits. Affect congruent, mood euthymic. Thoughts linear, logical, no signs of hallucinations or delusions. Reviewed client?s symptom tracker, no risk for suicidal ideation, plan, or intent as of 02/27/20. Client Response/Progress/Benefit: []Client responded well to session, attentive and engaged throughout session. Client stated her mood for today was ?positive? as she had a good weekend. Client was surprised by a friend bringing her prepared meals and went on a car ride with her mother as she was getting medical tests done over the weekend. Client?s goal was to catch her negative thoughts and replace them with positive thoughts. Client shared that she was able to complete her goal, and she recognized that when she catches her negative thoughts, she finds herself turning to distractions to help client reframe positive thinking. Client has reported in the past it is difficult for her to reframe negative thoughts.. Client benefited from group as she was able to catch her negative thoughts and challenge them into a positive manner. Client will continue IOP to maintain decompensation, reduce depressive symptoms, and maintain safety. Narrative Note: []
--- NOTE | 2020-02-27 10:24 | BH.SGPN.GN ---
This psychotherapy group was provided via telehealth using two-way, real-time interactive telecommunication technology between the patients and the provider.?The interactive telecommunication technology included audio and video.? ?The patient was offered telemedicine as an option for care delivery during the COVID-19 pandemic and consented to this option. ?Patient location: [place] ?Provider located at [facility] Behaviors/Verbalizations/Mental Status: []Client alert and oriented, casually dressed and groomed. Eye contact good. Motor activity appropriate. Speech within normal limits. Affect congruent to topics discussed, mood depressed and anxious. Thoughts linear, logical, no signs of hallucinations or delusions. Client Response/Progress/Benefit: []Client active participant AEB client providing input to discussion and listening attentively to peers. Group identified the benefits of having a support system such as: accountability, increased self-esteem, gain perspective, and not feeling alone. Client discussed different types of support, and stated sometimes ?supports have to let you hit rock bottom.? Group also discussed the barriers to accessing support and client shared negative thinking prevents client from reaching out to support. Seemed to benefit from increased awareness of different supports available and identifying benefits of social support. Progress noted in client?s consistent attendance and reduced SI. Will continue IOP tx to prevent decompensation, improve healthy coping skills, and reduce negative thinking. Narrative Note: []
--- NOTE | 2020-02-27 11:20 | BH.SGPN.GN ---
This psychotherapy group was provided via telehealth using two-way, real-time interactive telecommunication technology between the patients and the provider. The interactive telecommunication technology included audio and video. The patient was offered telemedicine as an option for care delivery during the COVID-19 pandemic and consented to this option. Patient location: [place] Provider located at [facility] Behaviors/Verbalizations/Mental Status: []Client alert and oriented, casually dressed and appropriately groomed. Eye contact good. Motor activity appropriate. Speech within normal limits. Affect constricted. mood dysthymic. Thoughts linear, logical, no signs of hallucinations or delusions. Client Response/Progress/Benefit: []Client an active participant AEB contributing to discussion and taking notes throughout. Client participated in group discussion about the different types of support and benefits different support can provide. Client stated she is good at getting emotional support through the use of mental health professionals but struggles with seeking emotional support from friends or family. Pt identified she would like to increase tangible support because she struggles with asking for practical help despite needing it. Client reported one step to increase tangible support she will ask her for help with chores around the house. Client seemed to benefit from identifying a type of support she would like to improve upon and brainstorming small steps to take in order to successfully do so. Client to continue IOP tx to reduce depression, improve healthy coping skills, and prevent decompensation. Narrative Note: []
--- NOTE | 2020-02-27 14:16 | BH.MDN ---
Multi-Disciplinary Note - Note 45-min Individual Time Started:: 12:24 Date: 02/27/20 Purpose of session/treatment goals addressed:: The purpose of this session was to address any current stressors, symptoms, warning signs, and negative thoughts. Another goal was to identify warning signs and coping skills for anxiety. Other topics included scheduling a family session. Eye Contact:: Good Motor Activity:: Appropriate Appearance:: Casual Speech:: Appropriate, Soft Mood:: Anxious, Dysthymic Affect:: Congruent - tearful when discussing Thoughts:: Linear, Logical, No evidence of hallucinations/delusions noted Staff Interventions:: Therapist used active listening and open-ended questions to explore client's current stressors, symptoms, and negative thinking. Therapist helped client schedule a family session and explored client?s goals for family session. Therapist had client identify her physical, behavioral, and cognitive warning signs for anxiety. Therapist reviewed coping skills with client to manage anxiety warning signs. Skills included: barlow mind, opposite action, 5-senses, and thoughts challenging. Therapist gave client homework to identify warning signs for depression. Client Response:: Client responded well to session, open to meeting with therapist. Client shared she enjoyed group today, but she struggled at times with sitting still and focusing. Client stated she had a good weekend with a friend and her mother. Client reported she would like to include her in her mental health treatment and scheduled a family session for next week. Client identified her goals for the session to included: psychoeducation on anxiety, depression, and low self-esteem, warning signs, and how to help support client. Client receptive to identifying her warning signs for anxiety during session. Client broke down her warning signs into physical, behavioral, and cognitive. Client's warning signs included: tightness in chest, shortness of breath, feeling like she is jumping out of her skin, talking fast, increased sense of urgency, restlessness, and catastrophizing negative thoughts. Receptive to reviewing strategies to cope with different warning signs. Client shared she has found the 5-senses to be helpful in the past. Client was also receptive to trying body scanning and thought challenging to promote client's barlow mind. Client acknowledges that she has a lot of distorted thought patterns, especially when she is anxious or depressed. Recognized that reframing her negative thoughts will take time and energy. Risks/Concerns:: Client denies any active suicidal ideations, plan, or intent as of 02/27/20. Client admits to ongoing thoughts about feeling like a burden to her family and wishing she would have succeeded in killing herself. Client reports she does not want to actively kill herself. Client is future oriented AEB scheduling a family session with her and plans to attend IOP throughout the week. Client reports ability to maintain safety today and has the number for crisis should she need it. Progress Toward Goals/Plan:: Client's second week of IOP and she appears to be engaging well with peers. Client reports she has been enjoying group, but she finds it hard to concentrate at times. Client continues to endorse a depressed mood, anhedonia, crying spells, anxiety, ruminations, isolative behaviors, negative thinking, and increased irritability. Client also reports passive wishes of and feeling like a burden. Client denies any active suicidal ideations, plan, or intent as of today. Will continue IOP tx to prevent decompensation that may require hospitalization, reduce negative thinking, and improve mood stability. Will have a family session with next week on 03/05/20. Time Stopped:: 13:02
--- NOTE | 2020-02-29 09:05 | BH.SGPN.GN ---
his psychotherapy group was provided via telehealth using two-way, real-time interactive telecommunication technology between the patients and the provider. The interactive telecommunication technology included audio and video. The patient was offered telemedicine as an option for care delivery during the COVID-19 pandemic and consented to this option. Patient location: [place] Provider located at [facility] Behaviors/Verbalizations/Mental Status: []Client alert and oriented, casually dressed and appropriately groomed. Eye contact good. Motor activity appropriate. Speech within normal limits. Affect constricted. mood anxious and depressed. Thoughts linear, logical, no signs of hallucinations or delusions. Client Response/Progress/Benefit: []Pt responded well to session AEB pt listening attentively to peers and openly sharing thoughts and feelings. Pt reported currently feeling anxious and 'at any moment could I could break. Pt explained this morning she became extremely upset with her for a decision he was going to make about their cats. Pt stated she expressed her feelings with her and he changed his decision. Pt reported feeling frustrated with herself for still being upset over something that has been resolved. Pt stated she is also feeling frustrated that the doctor found some deficiency which now requires her to take 3 additional medications. Patient reported she utilized the skill of catching her negative and hopelessness thoughts however stated she struggles with reframing her distorted and negative thoughts. Patient identified feeling angry, irritated, and anxious this morning. Seemed to benefit from support from peers and expressing thoughts and feelings. Patient to continue IOP level of care to decrease distorted thought patterns, increase use of healthy coping skills, and prevent decompensation. Narrative Note: []
--- NOTE | 2020-02-29 10:15 | BH.SGPN.GN ---
Behaviors/Verbalizations/Mental Status: [] Eye contact is good. Motor activity is appropriate. Appearance is casual. Speech is Appropriate. Mood is anxious. Affect is congruent. Thoughts are linear and logical. No evidence of psychosis. Client Response/Progress/Benefit: [] Client responded well to session, engaged and participating in group discussion. Client connected with the quote and discussed the difference between ruminating and reflecting for growth with group members. Client helped group identify the importance of change. Group also identified barriers keeping clients from changing. Participated in the discussion and psychoeducation on the different zones of change. Client described her comfort zone as ? keeping to herself, putting other first, and smiling when distressed, ? which keep her from focusing on herself and self-care. Appeared to benefit from gaining awareness of the benefits of change as well as the different zones of change. Will continue in IOP to maintain safety, prevent decompensation, and increase healthy coping skills. Narrative Note: [] This psychotherapy group was provided via telehealth using two-way, real-time interactive telecommunication technology between the patients and the provider.?The interactive telecommunication technology included audio and video.? ?The patient was offered telemedicine as an option for care delivery during the COVID-19 pandemic and consented to this option. ?Patient location: [place] ?Provider located at [facility]
--- NOTE | 2020-02-29 11:20 | BH.SGPN.GN ---
This psychotherapy group was provided via telehealth using two-way, real-time interactive telecommunication technology between the patients and the provider.?The interactive telecommunication technology included audio and video.? ?The patient was offered telemedicine as an option for care delivery during the COVID-19 pandemic and consented to this option. ?Patient location: [place] ?Provider located at [facility] Behaviors/Verbalizations/Mental Status: []Client alert and oriented, casually dressed and groomed. Eye contact good. Motor activity appropriate. Speech within normal limits-soft. Affect constricted. Mood dysthymic. Thoughts linear, logical, no signs of hallucinations or delusions. Client Response/Progress/Benefit: []Client was engaged throughout AEB contributing to discussion and sharing her worksheet. Client reported staying her in comfort zone has kept client stuck and increases client?s anxiety and depression. Client identified three small goals to get client out of her comfort zone which included: reducing ruminations, practicing self-care, and catching negative thoughts. Client identified her barriers to be: negative core beliefs of self, anhedonia, and not feeling worthy of self-care. Client shared she would like to first work on recognizing and challenging her negative thinking and plans to use distractions and self-talk of ?that was then this is now.? Client shared she can hold herself accountable by sharing with the group. Appeared to benefit from psychoeducation and working with the group to brainstorm strategies for improving personal accountability. Progress noted AEB client?s high engagement in group sessions, but client continues to struggle with negative thinking that reinforces depression. Will continue IOP tx to prevent decompensation, maintain safety, and increase use of healthy coping skills. Narrative Note: []
--- NOTE | 2020-03-02 09:05 | BH.SGPN.GN ---
This psychotherapy group was provided via telehealth using two-way, real-time interactive telecommunication technology between the patients and the provider.?The interactive telecommunication technology included audio and video.? ?The patient was offered telemedicine as an option for care delivery during the COVID-19 pandemic and consented to this option. ?Patient location: [place] ?Provider located at [facility] Behaviors/Verbalizations/Mental Status: []Client alert and oriented, neatly dressed and groomed. Eye contact good. Motor activity appropriate. Speech within normal limits. Affect constricted, mood overwhelmed but positive. Thoughts linear, logical, no signs of hallucinations or delusions. Reviewed client?s symptom tracker, no risk for suicidal ideation, plan, or intent as of 03/02/20. Client Response/Progress/Benefit: []Client responded well to session, attentive and providing supportive statements. Client reports feeling ?exhausted and overwhelmed? this morning. Client stated yesterday was a stressful day and ?took a lot out of me? as client had a lot of appointments. Client stated despite the stress, client was able to identify a silver-lining which helped client think more positively. Client?s gameplan from last session was to work on increasing self-care. Client has been doing this by going for a drive with her mother, taking extra naps, and finding a new craft to start. Client shared she is looking forward to going to a wedding tomorrow for her long-time friend. Client appeared to benefit from reflecting on the positives. Progress noted in client?s report of no SI and application of coping skills. Will continue IOP tx to prevent decompensation of depressive symptoms, reduce negative thinking, and increase healthy coping skills. Narrative Note: []
--- NOTE | 2020-03-02 11:26 | BH.COMM ---
Communication Note - Communication with Client Communication Note: Client had to leave IOP group sessions early today due to illness. Client denied any active suicidal ideations, plan, or intent today on her symptom tracker. Client scheduled her sessions for next week and plans to attend group on Thursday03/05/20.
--- NOTE | 2020-03-05 10:15 | BH.SGPN.GN ---
This psychotherapy group was provided via telehealth using two-way, real-time interactive telecommunication technology between the patients and the provider. The interactive telecommunication technology included audio and video. The patient was offered telemedicine as an option for care delivery during the COVID-19 pandemic and consented to this option. Patient location: [place] Provider located at [facility] Behaviors/Verbalizations/Mental Status: []Client alert and oriented, casual dress, hygiene tended to. Eye fair. Motor activity restless. Soft tone. Affect constricted. mood anxious. Thoughts linear, logical, no signs of hallucinations or delusions. Client stated not feeling well during middle of session, however was able to stay engaged. Client Response/Progress/Benefit: []Pt responded well to session AEB contributing to discussion. Pt appeared to connect well with the topic of resilience AEB by pt stating being flexible with change and hardships will help you move forward in life. Pt worked with the group during discussion of the costs of resisting change and the benefits of adapting to adversity. Group identified costs of resisting change included: staying stuck, difficulty managing crises, increased depression, increased anxiety, and decrease in self-care. Attentive during psychoeducation on various [place] factors in developing personal resilience. Pt contributed during group discussion identifying benefits of each factor in fostering resilience. Pt seemed to benefit from increasing awareness of strategies to increase personal resilience and the impacts of resilience on managing mental health sx. Will continue IOP tx to promote the use of healthy coping skills, challenge negative and distorted thoughts, and prevent decompensation. Narrative Note: []
--- NOTE | 2020-03-05 11:15 | BH.SGPN.GN ---
This psychotherapy group was provided via telehealth using two-way, real-time interactive telecommunication technology between the patients and the provider.?The interactive telecommunication technology included audio and video.? ?The patient was offered telemedicine as an option for care delivery during the COVID-19 pandemic and consented to this option. ?Patient location: [place] ?Provider located at [facility] Behaviors/Verbalizations/Mental Status: []Client alert and oriented, casually dressed and groomed. Eye contact good. Motor activity appropriate. Speech within normal limits. Affect congruent, mood anxious and euthymic. Thoughts linear, logical, no signs of hallucinations or delusions. Client Response/Progress/Benefit: []Client engaged participant as evidenced by client providing input throughout discussion and listening attentively to peers. Client participated in the discussion of how each resiliency component can help increase personal resiliency. Client identified current resiliency traits she currently possesses and then identified what trait she would like to improve. Client reports belief she has been using the resiliency traits of making connections and hopeful outlook. Client reported she did not used to be hopeful, but catching her negative thoughts has helped with this. Client stated she would like to work on self-care. Client reported she will do this by sitting with uncomfortable feelings today for a few minutes. Client appeared to benefit from increasing insight to ways in which client can improve resilience to adversity and daily stressors. Client to continue IOP tx to improve mood stability, prevent decompensation of depressive symptoms, and reduce negative thinking. Narrative Note: []
--- NOTE | 2020-03-05 14:54 | BH.MDN ---
Multi-Disciplinary Note - Note Family Time Started:: 13:05 Date: 03/05/20 Purpose of session/treatment goals addressed:: The purpose of this session was to engage client's in treatment by providing psychoeducation and communicating client's support needs. Other topics included crisis planning, coping skills, and client advocacy. Eye Contact:: Good Motor Activity:: Appropriate Appearance:: Casual Speech:: Appropriate Mood:: Anxious Affect:: Congruent - tearful at times Thoughts:: Linear, Logical, No evidence of hallucinations/delusions noted Staff Interventions:: Therapist used open-ended questions and active listening to gather information on expectations for the session. Therapist advocated for client by providing psychoeducation on stress response, depression, and anxiety. Therapist used strengths perspective to empower client and identify couple strengths that can support client?s mental health. Therapist reviewed effective communication, self-advocacy, and coping skills. Therapist also helped the couple explore what is currently not helping their communication and client?s mental health. Therapist encouraged client and her to use visual cues to help them with communication and personal coping skills. Client Response:: Client and her responded well to session, open to meeting with therapist. Client reported her expectations for session are to increase communication, improve the support client receives from her , and respond better to crisis. Client's reported he also wants to work on those things and admits that he struggles with managing and communicating his emotions. The couple shared this is a source of conflict for them and it impacts client's mental health. Client shared her is an excellent listener and that she currently receives support from him with housework and taking care of client's physical needs. Client expressed triggers and things that are currently not helping client's mental health. Client identified: poor communication, poor emotional regulation, and going into panic mode when client has a medical episode. Client also shared he mutters to himself and he knows that pushes my buttons. admits to doing this on purpose and is receptive to changing. Receptive to learning about stress response and the importance of practicing grounding during stressful situations. Problem-solved solutions to help client and her manage the triggers listed. Client and agreed that visual cues would be a good option to help remind client and of coping skills and what to do during crisis. Receptive to practicing grounding and writing out his feelings for client. Client receptive to ongoing thought challenging. Risks/Concerns:: Client denies any suicidal ideations, plan, or intent as of 03/05/20. Client reports today she has no hopelessness and she is more positive. Progress Toward Goals/Plan:: Client appears to be making progress towards her tx goals AEB report of no suicidal ideations and increased insight to negative thinking. Client reports she has been enjoying group and the supportive feedback she receives from peers. Client continues to endorse a depressed mood, anhedonia, crying spells, anxiety, ruminations, isolative behaviors, negative thinking, and increased irritability. Client also reports passive wishes of and feeling like a burden, but was not reporting hopelessness today. Will continue IOP tx to prevent decompensation that may require hospitalization, reduce negative thinking, and improve mood stability. Client and willing to work on goals discussed in session today. Time Stopped:: 13:57
--- NOTE | 2020-03-06 09:05 | BH.SGPN.GN ---
Behaviors/Verbalizations/Mental Status: []This psychotherapy group was provided via telehealth using two-way, real-time interactive telecommunication technology between the patients and the provider. The interactive telecommunication technology included audio and video. The patient was offered telemedicine as an option for care delivery during the COVID-19 pandemic and consented to this option. Patient location: [place] Provider located at [facility] Behaviors/Verbalizations/Mental Status: []Client alert and oriented, casual dress, hygiene tended to. Eye contact fair. Motor activity appropriate. Speech within normal limits. Affect constricted, mood euthymic. Thoughts linear, logical, no signs of hallucinations or delusions. Reviewed client?s symptom tracker, pt denies current suicidal thoughts or intention to date. Client Response/Progress/Benefit: []Pt responded well to session AEB pt appearing to listen attentively to peers and openly sharing thoughts and feelings. Pt stated she is feeling extremely tired today because adjusting to a new medication. Pt reported I'm in a good mood, just sleepy. Pt identified positives as taking time to [place] yesterday, helped her mom, and had a family session. Pt stated her enjoyed the family session and has been working on making changes that was discussed in the session. Patient reported her goal has been to practiced distress tolerance because she gets easily upset when there is disorganization in things out of place at home. Patient reported she practiced distress tolerance for 30 seconds at a time which seemed to eventually help. Patient notified stressor to be bills and finances however noted her starts his new job next week which should help decrease the stress. Patient to continue IOP level of care to increase healthy coping, challenge distorted thoughts, and prevent decompensation. Narrative Note: []
--- NOTE | 2020-03-06 10:25 | BH.SGPN.GN ---
Behaviors/Verbalizations/Mental Status: []Client alert and oriented, casual dress, hygiene tended to. Eye contact good. Motor activity appropriate. Speech within normal limits. Affect constricted, mood anxious. Thoughts linear, logical, no signs of hallucinations or delusions. Client Response/Progress/Benefit: []Client responded well to session, providing feedback to peers and insight to discussion. Engaged during psychoeducation portion reviewing fixed mindset. Client connected with traits of the fixed mindset and worked with group to identify how a fixed mindset can impact our mental health which included: decreased motivation, giving up when faced with a setback, negative self-talk, low confidence, and staying stuck. Client reported fixed thinking was one of the things that led to client?s suicide attempt last month. Client shared ?fixed thinking is a defense mechanism so that I don?t have to feel as disappointed.? Client stated since starting IOP, client has had more growth mindset thoughts and tells herself ?I?ve been going through impossible situations, but I?m right where I need to be.? Seemed to benefit from group by increasing awareness of how one's mindset impacts mental health. Progress noted AEB client continuing to demonstrate increased self-awareness of negative thoughts and self-report of no hopelessness. Client will continue IOP tx to prevent decompensation of depression and anxiety, improve self-care, and reduce negative thinking. Narrative Note: []
--- NOTE | 2020-03-06 11:22 | BH.SGPN.GN ---
This psychotherapy group was provided via telehealth using two-way, real-time interactive telecommunication technology between the patients and the provider. The interactive telecommunication technology included audio and video. The patient was offered telemedicine as an option for care delivery during the COVID-19 pandemic and consented to this option. Patient location: [place] Provider located at [facility] Behaviors/Verbalizations/Mental Status: []Client alert and oriented, casually dressed and groomed. Eye contact good. Motor activity appropriate. Speech within normal limits. Affect congruent. mood anxious and depressed. Thoughts linear, logical, no signs of hallucinations or delusions. Client Response/Progress/Benefit: [] Client actively listening during discussion, provided input, and taking notes throughout. She did well to work with group on identifying characteristics and benefits of adopting a growth mindset. Reports that a growth mindset could help to keep her from fixating on the negatives or feeling hopeless. Client participated during activity in which participants helped reframe examples of fixed thoughts into growth mindset thoughts. Client worked to apply skills learned to reframe own personal fixed thoughts. Reframed thought of ?No one will understand? with growth mindset thought of ?I have met others who have been through difficult things and have been able to relate in other ways?. Able to identify benefit of reframing her thoughts and indicated one potential benefit as feeling less alone. Benefitted from discussing benefits of growth mindset and brainstorming strategies for prompting growth-mindset. Client progress noted in self-report of increased communication with her and use of radical acceptance. Will continue IOP tx to continue to promote use of healthy change behaviors and improve skill application as well as improve healthy coping repertoire. Narrative Note: []
--- NOTE | 2020-03-07 09:05 | BH.SGPN.GN ---
This psychotherapy group was provided via telehealth using two-way, real-time interactive telecommunication technology between the patients and the provider. The interactive telecommunication technology included audio and video. The patient was offered telemedicine as an option for care delivery during the COVID-19 pandemic and consented to this option. Patient location: [place] Provider located at [facility] Behaviors/Verbalizations/Mental Status: []Client alert and oriented, well groomed and neatly dressed. Eye contact good. Motor activity appropriate. Speech within normal limits. Affect unable to gather due to wearing a mask for COVID-19 protocol. Mood anxious. Thoughts racing at the beginning of session, no signs of hallucinations or delusions. Reviewed client?s symptom tracker, risk for suicidal ideation is within client's baseline. No plan or intent as of 03/07/20. Client Response/Progress/Benefit: []Client responded well to session, receptive and reporting appreciation for feedback. Client reports feeling ?better than before I logged in this morning.? Client shared how her morning did not go well which led to ruminations and self-depreciation. Client stated logging into group and challenging her perspective has reduced the guilt client feels about being late. Client reported she is working on catching her negative thoughts and not letting ruminations ruin her day. Client receptive to additional strategies to help with this. Client encouraged to practice self-compassion today during group. Appeared to benefit from challenging negative thoughts in the moment. Progress noted as client has been reporting no SI or hopelessness. Will continue IOP tx to promote mood stability, reduce negative thinking, and increase healthy coping skills. Narrative Note: []
--- NOTE | 2020-03-07 10:22 | BH.SGPN.GN ---
This psychotherapy group was provided via telehealth using two-way, real-time interactive telecommunication technology between the patients and the provider. The interactive telecommunication technology included audio and video. The patient was offered telemedicine as an option for care delivery during the COVID-19 pandemic and consented to this option. Patient location: [place] Provider located at [facility] Behaviors/Verbalizations/Mental Status: []Client alert and oriented, casual dress, hygiene tended to. Eye contact fair to good. Motor activity appropriate, client laying down as she attended via zoom due to medical issues. Speech within normal limits. Affect congruent. Mood anxious. Thoughts linear, logical, no signs of hallucinations or delusions. Client Response/Progress/Benefit: []Pt receptive of session, remained an active participant throughout. Appeared to connect with topic of healthy decision making and worked with group to identify factors that can lead to being on an unhealthy decision-making path. Group identified factors to include: stubbornness, ignoring warning signs, not asking for help out of fear of judgement, habit, and fear of the unknown. Pt reported that getting stuck on thoughts of what is outside her control has impeded her ability to identify how her own decisions have prevented progress in the past. Group was provided with the ?Chapters of My Life? handout exploring how our decisions can contribute to the different life paths or ?chapters? we may be on. Pt engaged throughout processing discussion, was willing to reflect upon which chapter she is currently in and what factors impact ability to move to the next chapter in life. Pt identified being in chapter 2.5. Shared that continuing to push herself ?past the point of exhaustion? despite knowing she needs to stop has kept her from moving to a healthier chapter. Appeared to benefit from gaining insight into her own personal barriers impeding mental health progress. Progress noted in pt increased communication with her spouse as well as continued self-reflection. Continues to struggle with consistent skill application and externalization impacting thoughts and ability to make progress. Pt to continue IOP tx to prevent decompensation, promote healthy change behaviors, and improve coping repertoire. Narrative Note: []
--- NOTE | 2020-03-07 11:20 | BH.SGPN.GN ---
This psychotherapy group was provided via telehealth using two-way, real-time interactive telecommunication technology between the patients and the provider. The interactive telecommunication technology included audio and video. The patient was offered telemedicine as an option for care delivery during the COVID-19 pandemic and consented to this option. Patient location: [place] Provider located at [facility] Behaviors/Verbalizations/Mental Status: []Client alert and oriented, casual dress, hygiene tended to. Eye contact fair. Motor activity appropriate. speech and tone WNL. Affect constricted. mood anxious. Thoughts linear, logical, no signs of hallucinations or delusions. Client Response/Progress/Benefit: []Client engaged in session AEB listening to discussion and taking notes throughout. Client identified shame, not asking for help, denial of problems, negative and distorted thoughts are behaviors she engages in that keeps her stuck from moving forward. Client attentive during psychoeducation about problem solving protocol. Client did well to work with the group to brainstorm strategies to promote making progress towards their desired chapter. Identified one thing she can do to move forward is to reframe fixed thoughts to growth thought patterns. client reported she recognizes negative and distorted thoughts is the biggest thing that keeps her stuck. Appeared to benefit from increased insight regarding her current ?Chapter? in life and reviewing strategies for promoting continued progress and prevent regression. Will continue IOP tx to prevent decompensation, challenge distorted thoughts and increase healthy coping. Narrative Note: []
== END 2020-03-07 23:59 ==
LOC: BHIOP 09:00
PROVIDERS: PCP Nurse Practitioner; Referring Provider Psychiatry & Neurology Psychiatry; Visit Provider Psychiatry & Neurology Psychiatry
DX: F33.2 Major depressive disorder, recurrent severe without psychotic features (principal); F41.8 Other specified anxiety disorders; K51.90 Ulcerative colitis, unspecified, without complications; R55 Syncope and collapse; G43.909 Migraine, unspecified, not intractable, without status migrainosus; E66.9 Obesity, unspecified; F98.8 Other specified behavioral and emotional disorders with onset usually occurring in childhood and adolescence; E06.3 Autoimmune thyroiditis; I10 Essential (primary) hypertension; K21.9 Gastro-esophageal reflux disease without esophagitis; Z62.810 Personal history of physical and sexual abuse in childhood; Z62.811 Personal history of psychological abuse in childhood; Z91.5 Personal history of self-harm; Z79.899 Other long term (current) drug therapy; Z81.8 Family history of other mental and behavioral disorders
CPT/HCPCS: H0035; 90832; 90834; 90847; 90853

== ENCOUNTER → 2020-02-24 12:07 | Outpatient (CLI) | payer OTHER, SELFPAY ==
[2020-02-02 16:21] VITALS: BMI 44.4
== END ==
LOC: SL 12:07
PROVIDERS: PCP Nurse Practitioner; Referring Provider Internal Medicine Critical Care Medicine; Visit Provider Internal Medicine Critical Care Medicine
DX: G47.10 Hypersomnia, unspecified (principal)
CPT/HCPCS: 95806

== ENCOUNTER → 2020-02-28 14:18 | Outpatient (CLI) | payer OTHER, SELFPAY ==
[2020-02-02 16:21] VITALS: BMI 44.4
--- NOTE | 2020-02-28 14:21 | ECHOD_ITS ---
Reason For Study: Syncope Procedure This was a 2D Doppler, Color Flow transthoracic echocardiogram. The study was technically difficult. Exam performed in department. Left Ventricle Normal LV size. Left ventricular systolic function is normal. The estimated ejection fraction is 60 %. No evidence for diastolic dysfunction. No regional wall motion abnormalities noted. Right Ventricle Normal RV size. Normal systolic function. Atria The left atrium is mildly enlarged. Normal right atrium. No doppler evidence for ASD. Mitral Valve There is no mitral annular calcification. Normal mitral valve. Mild (1+) mitral valve insufficiency. Tricuspid Valve Normal tricuspid valve. Trivial tricuspid valve insufficiency. Right ventricular systolic pressure estimated to be 26 mmHg. Aortic Valve Trisinus/trileaflet aortic valve. Normal aortic valve. Trivial aortic valve insufficiency. Pulmonic Valve The pulmonic valve is not well visualized. Trivial pulmonic valve insufficiency. Great Vessels The aortic root is not well visualized. Pericardium/Pleural No pericardial effusion. MMode/2D Measurements & Calculations LVIDd: 3.5 cm IVSd: 0.82 cm LAV(MOD-bp): 70.1 ml LVIDs: 2.9 cm LVPWd: 0.77 cm LAV(MOD-bp) Indexed: 33.9 ml/m2 RVDd: 3.8 cm FS: 19.0 % LAV(MOD-sp2): 80.8 ml LAV(MOD-sp4): 60.7 ml SV(MOD-sp4): 72.9 ml SV(sp4-el): 76.7 ml LVAd ap4: 33.8 cm2 EDV(MOD-sp4): 108.3 ml EDV(sp4-el): 112.7 ml LVAs ap4: 17.9 cm2 ESV(MOD-sp4): 35.4 ml ESV(sp4-el): 36.0 ml EF(MOD-sp4): 67.3 % EF(sp4-el): 68.0 % LA A4 area: 21.1 cm2 LA dimension(2D): 3.7 cm RA A4 area: 13.7 cm2 Doppler Measurements & Calculations MV E max joseph: 68.0 cm/sec Lat Peak E' Joseph: 15.3 cm/sec Med Peak E' Joseph: 8.7 cm/sec MV A max joseph: 48.4 cm/sec E/E' lat: 4.5 E/E' med: 7.9 MV E/A: 1.4 Ao V2 max: 129.3 cm/sec LV V1 max: 99.2 cm/sec PA V2 max: 76.9 cm/sec Ao max P.7 mmHg LV V1 max P.9 mmHg TR max joseph: 240.5 cm/sec TR max P.1 mmHg Interpretation Summary The study was technically difficult. Left ventricular systolic function is normal. The estimated ejection fraction is 60 %. The left atrium is mildly enlarged. Mild (1+) mitral valve insufficiency. Trivial tricuspid valve insufficiency. Trivial aortic valve insufficiency. Trivial pulmonic valve insufficiency. Right ventricular systolic pressure estimated to be 26 mmHg. No evidence for diastolic dysfunction. Ordering Physician: Charlie Turpin Referring Physician: Fide Mahoney Performed By: Maribell Eduardo [facility]
== END ==
PROVIDERS: PCP Nurse Practitioner; Referring Provider Internal Medicine Cardiovascular Disease; Visit Provider Internal Medicine Cardiovascular Disease
DX: R06.00 Dyspnea, unspecified (principal); I10 Essential (primary) hypertension; R55 Syncope and collapse; R00.2 Palpitations; I49.3 Ventricular premature depolarization
CPT/HCPCS: 93306

== ENCOUNTER 2020-03-12 09:00 | Outpatient (RCR) | payer OTHER, SELFPAY ==
[2020-02-02 16:21] VITALS: BMI 44.4
--- NOTE | 2020-03-05 09:05 | BH.SGPN.GN ---
This psychotherapy group was provided via telehealth using two-way, real-time interactive telecommunication technology between the patients and the provider. The interactive telecommunication technology included audio and video. The patient was offered telemedicine as an option for care delivery during the COVID-19 pandemic and consented to this option. Patient location: [place] Provider located at [facility] Behaviors/Verbalizations/Mental Status: [] Client alert and oriented, casually dressed. Eye contact fair. Motor activity appropriate. Rapid speech. Affect congruent, mood euthymic. Thoughts linear, logical, no signs of hallucinations or delusions. Reviewed client?s symptom tracker, no risk for suicidal ideation, plan, or intent as of 03/05/20. Client Response/Progress/Benefit: []Client responded well to session and engaged and provided feedback to other group members. Client expressed having a fun weekend celebrating her friend at her wedding. Client was anxious about attending the wedding in a wheelchair because client felt that others would stare at her. Client reported she caught her negative thoughts at the wedding and was able to let go of the negative thinking. Client began to have an asthma attack during the wedding ceremony and felt anxious that others were staring at her, but client did not ruminate and instead client grabbed her inhaler and took care of her medical situation before it escalated. Client spent quality time with her aunt and crocheted as self-care. Completing self-care and catching negative thoughts were identified as the goal by the client. Client applied mindfulness and grounding technique to help reduce negative thinking. Client benefited from group as she was able to laugh as she discussed some of her stressful situations that happened over the weekend. Client will continue IOP to prevent decompensation, improve mood, and maintain safety. Narrative Note: []
[2020-03-09 12:51] VITALS: BMI 44.4
--- NOTE | 2020-03-13 10:20 | BH.SGPN.GN ---
This psychotherapy group was provided via telehealth using two-way, real-time interactive telecommunication technology between the patients and the provider.?The interactive telecommunication technology included audio and video.? ?The patient was offered telemedicine as an option for care delivery during the COVID-19 pandemic and consented to this option. ?Patient location: [place] ?Provider located at [facility] Behaviors/Verbalizations/Mental Status: []Client alert and oriented, neatly dressed and groomed. Eye contact good. Motor activity appropriate. Speech within normal limits. Affect congruent, mood euthymic. Thoughts linear, logical, no signs of hallucinations or delusions. Client Response/Progress/Benefit: []Client was an active participant AEB contributing to discussion and participating in activity. Connected with the topic of pitfalls and helped the group discuss barriers that keep them from choosing a healthier path to mental wellness such as pitfalls. Client stated that a lot of time change involves doing the uncomfortable thing, which can be anxiety producing. Group worked together to identify examples of personal pitfalls which included; not expressing self, not reaching out to supports, negative self-talk, and not having awareness. Engaged during the activity and did well to provide support and encouragement to the group. Client reported even though she was on telehealth, client still experienced some tension and anxiety. Client coped with these emotions by challenging ?impossible mindset? thoughts and focusing on strengths. Client benefited from increased awareness on the impact that pitfalls can have on mental health. Will continue IOP tx to further improve application of coping skills, reduce negative thinking, and increase mood stability. Narrative Note: []
--- NOTE | 2020-03-13 11:20 | BH.SGPN.GN ---
This psychotherapy group was provided via telehealth using two-way, real-time interactive telecommunication technology between the patients and the provider. The interactive telecommunication technology included audio and video. The patient was offered telemedicine as an option for care delivery during the COVID-19 pandemic and consented to this option. Patient location: [place] Provider located at [facility] Behaviors/Verbalizations/Mental Status: []Client alert and oriented, casual dress, hygiene tended to. Eye contact fair. Motor activity appropriate. speech and tone WNL. Affect constricted. mood anxious. Thoughts linear, logical, no signs of hallucinations or delusions. Client Response/Progress/Benefit: []Client receptive of session, engaged throughout AEB client participating in discussion, asking questions, and listening to others. Client completed a worksheet where she identified personal pitfalls impacting mental health progress. Identified pitfalls as: not challenging thoughts, not asking for help, putting self last, and not prioritizing self-care. Attentive and contributing during group brainstorm of strategies to overcome pitfalls. Client stated she will work on the pitfall of not prioritizing self-care by spending 5 minutes alone at least 3 times a day. Benefited from identifying personal pitfalls and strategies to overcome these pitfalls. Client to continue IOP level of care to increase consistent use of healthy coping skills, challenge distorted and negative thoughts and prevent decompensation. Narrative Note: []
--- NOTE | 2020-03-14 09:02 | BH.SGPN.GN ---
Behaviors/Verbalizations/Mental Status: []Client alert and oriented, casual dress, hygiene tended to. Eye contact fair. Motor activity appropriate. Speech within normal limits. Affect congruent, mood euthymic, slightly anxious. Thoughts linear, logical, no signs of hallucinations or delusions. Reviewed client?s symptom tracker, pt denies current suicidal thoughts or intention to date. Client Response/Progress/Benefit: []Pt responded well to session AEB pt listening attentively to peers and sharing thoughts and feelings. Pt reported she accomplished her goal of spending 5 minutes of completely alone time. Pt stated she had expected the alone time to be refreshing and calming but instead she had racing thoughts and felt uncomfortable. Pt reported this experience helped her realize how often she keeps herself distracted. Pt stated although the experience was uncomfortable she wants to continue working on being okay with nothing to do. Pt reported she is feeling excited about going to visit a friend she met while in inpatient hospitalization a few months ago. pt stated since being discharged she has kept in contact with one of the other patients which pt reported has been a positive support. Progress noted with pt utilizing thought challenge and calming skills to manage emotions to manage stressors. Pt to continue IOP to continue use of coping, practice challenging distorted thoughts and prevent decompensation. Narrative Note: []
--- NOTE | 2020-03-14 11:15 | BH.SGPN.GN ---
This psychotherapy group was provided via telehealth using two-way, real-time interactive telecommunication technology between the patients and the provider.?The interactive telecommunication technology included audio and video.? ?The patient was offered telemedicine as an option for care delivery during the COVID-19 pandemic and consented to this option. ?Patient location: [place] ?Provider located at [facility] Behaviors/Verbalizations/Mental Status: []Client alert and oriented, neatly dressed and groomed. Eye contact good. Motor activity appropriate. Speech within normal limits. Affect constricted, mood anxious and tired. Thoughts linear, logical, no signs of hallucinations or delusions. Client Response/Progress/Benefit: []Client responded well to session, connecting with the topic and engaged in discussion. Client attentive during psychoeducation on the change process and able to identify different emotions in each stage of change. Client identified a change she would like to make to improve her mental health which was to ?be more confident in making doctor?s appointments.? Client shared she wants to work on this as client believes in will reduce depression and help client retention specialist for herself. Client reports belief she is currently in the action stage because client plans to call and schedule an appointment today. Client?s goal today is to practice opposite action by calling her doctor, on her own, and arranging an appointment time that works for client. Appeared to benefit from identifying what stage of change client is in and setting a small goal to promote that change. Will continue IOP tx as client has made progress, but client continues to report high intensity of anxiety, negative thoughts that reinforce low self-esteem, and difficulty concentrating. Narrative Note: []
--- NOTE | 2020-03-16 09:00 | BH.SGPN.GN ---
This psychotherapy group was provided via telehealth using two-way, real-time interactive telecommunication technology between the patients and the provider. The interactive telecommunication technology included audio and video. The patient was offered telemedicine as an option for care delivery during the COVID-19 pandemic and consented to this option. Patient location: [place] Provider located at [facility] Behaviors/Verbalizations/Mental Status: []Client alert and oriented, casually dressed. Eye contact good. Motor activity appropriate. Speech within normal limits. Affect constricted, mood dysthymic. Thoughts linear, logical, no signs of hallucinations or delusions. Reviewed client?s symptom tracker, risk for suicidal ideation below client?s baseline. No plan or intent plan, or intent as of 03/16/20. Client Response/Progress/Benefit: []Client responded well to session and engaged and provided feedback to other group members. Client?s goal was to increase confidence, decrease negative thoughts, and take care of medical appointments. Client was aware of her ?people pleasing? as she scheduled two doctor appointments that worked better for the agencies, rather than her personal schedule. Client increased self-confidence by calling the doctor office to reschedule an appointment. Client was also triggered when client received a letter in the mail from a previous hospitalization which resulted in flashbacks and panic attack. Client said she practiced breathing and distractions as coping skills. Client shared she felt ?frazzled and in physical pain? from her medical condition. Progress noted a client increased self-awareness and self-confidence. Client will continue IOP to prevent decompensation and improve emotional regulation skills. Narrative Note: []
--- NOTE | 2020-03-16 10:10 | BH.SGPN.GN ---
This psychotherapy group was provided via telehealth using two-way, real-time interactive telecommunication technology between the patients and the provider. The interactive telecommunication technology included audio and video. The patient was offered telemedicine as an option for care delivery during the COVID-19 pandemic and consented to this option. Patient location: [place] Provider located at [facility] Behaviors/Verbalizations/Mental Status: []Client alert and oriented, casual dress, hygiene tended to. Eye contact fair. Motor activity appropriate. Speech within normal limits. Affect congruent, mood anxious. Thoughts linear, logical, no signs of hallucinations or delusions. Client Response/Progress/Benefit: []Client responded well to session, attentive throughout. Listening and participating throughout group discussion defining conflict and the differences between internal and external conflict. Group reported the benefits of addressing conflict as well as identified and discussed consequences of not addressing conflict. Client reported the consequences she encounters by not addressing conflict would be loss of relationships and increased depression and anxiety. Client attentive and contributing during psychoeducation of the different conflict resolution styles. Client reports her conflict style is accommodating which results in client not getting her needs met. Client benefited from group as she learned new conflict resolution styles and the benefits. Client will continue IOP to prevent decompensation and maintain safety. Narrative Note: []
--- NOTE | 2020-03-16 11:10 | BH.SGPN.GN ---
This psychotherapy group was provided via telehealth using two-way, real-time interactive telecommunication technology between the patients and the provider.?The interactive telecommunication technology included audio and video.? ?The patient was offered telemedicine as an option for care delivery during the COVID-19 pandemic and consented to this option. ?Patient location: [place] ?Provider located at [facility] Behaviors/Verbalizations/Mental Status: []Client alert and oriented, neatly dressed and groomed. Eye contact good. Motor activity appropriate. Speech within normal limits. Affect constricted, mood dysthymic. Thoughts linear, logical, no signs of hallucinations or delusions. Client Response/Progress/Benefit: []Client engaged in session AEB listening attentively to others and providing input throughout. Client further processed her conflict resolution style and connects most with the accommodating style. Client reports ?I was raised this way?my mom told me to just let others win.? Client stated this conflict resolution style increases client?s depression, lowers self-worth, and makes client think ?I?m not worth it.? Client did well to participate during the activity in which participants were challenged to eliminate various items through group consensus. Client stepped out of her comfort zone and shared her opinions with the group. Client contributed to discussion of the barriers that occurred during the activity as well as the conflict resolution strategies. Client identified wanting to work on communicating her needs assertively with safe supports to better manage conflict. Progress noted in client?s self-report of less hopelessness and no SI. Will continue IOP tx as client continues to struggle with managing anxiety, panic, and negative thinking that reinforces depression. Narrative Note: []
--- NOTE | 2020-03-16 14:17 | BH.MDN ---
Multi-Disciplinary Note - Note 30-min Individual Time Started:: 12:17 Date: 03/16/20 Purpose of session/treatment goals addressed:: The purpose of this session was to address current symptoms, triggers, and negative thoughts. Another goal was to practice cognitive restructuring techniques and create homework. Other topics included: family session, mindfulness, and PTSD. Symptoms/Behavior:: This counseling session was provided via telehealth using two-way, real-time interactive telecommunication technology between the patient and the clinician. The interactive telecommunication technology included audio and video. The patient was offered telehealth as an option for care delivery during the COVID-19 pandemic and consented to this option. Patient location: [place]. Provider located at [facility] Eye Contact:: Good Motor Activity:: Appropriate Appearance:: Casual Speech:: Appropriate Mood:: Anxious, Dysthymic Affect:: Congruent - sobbing at one point during session Thoughts:: Racing, No evidence of hallucinations/delusions noted Staff Interventions:: Therapist used active listening and open-ended questions to gather information on client's current stressors, symptoms, and triggers. Therapist provided emotional support and used mindfulness strategies to reduce client's symptoms of anxiety. Therapist used cognitive restructuring to gently challenge client's distorted thought patterns. Therapist gave client homework to keep track of two mental health wins a day. Client Response:: Client responded well to session, open to meeting with therapist. Client became anxious and tearful while sharing about a PTSD trigger that occurred unexpectedly yesterday. Client received a letter in the mail from the inpatient hospital client stayed at and it triggered a panic attack. Client shared ?I had irrational thoughts that they were going to make me go back there.? Client responded well to practicing mindfulness and deep breathing which calmed client down. Once calm, client was able to challenge her distortions, worries, and irrational thoughts about recent trigger. Client also gained awareness of vulnerability factors, such as physical pain and fatigue, that could have exacerbated client?s response to recent trigger. Client reviewed strategies to help manage PTSD symptoms and reminded herself that she has made progress despite yesterday?s trigger. Client receptive to beginning to keep track of her wins so client has something to look back on during difficult days. Client also wrote out several positive self-talk statements client can use to reframe thinking. Client requested a family session for next week. Risks/Concerns:: Client reports a panic attack yesterday and was tearful during session today. Client continues to deny suicidal ideations, plan, or intent as of 03/16/20. Client reports she is still not hopeless like I was and client is future oriented with plans for the weekend. Progress Toward Goals/Plan:: Client appears to be making progress towards her tx goals AEB report of no suicidal ideations and increased insight to negative thinking. Client continues to show high engagement in group and individual sessions. Client presented with a depressed and anxious mood today due to experiencing an unexpected PTSD trigger yesterday. Client shared this made client question progress and have never thoughts. Able to reframe thinking in session. Client continues to endorse a depressed mood, anhedonia, crying spells, anxiety, ruminations, negative thinking, and worthlessness. Will continue IOP tx to prevent decompensation that may require hospitalization, reduce negative thinking, and increase healthy coping skills. Time Stopped:: 12:46
--- NOTE | 2020-03-19 14:57 | BH.MDN_ITS ---
Multi-Disciplinary Note - Note Family Time Started:: 13:36 Date: 03/19/20 Purpose of session/treatment goals addressed:: The purpose of this session was to engage client's in treatment by addressing barriers impacting the relationship and client's mental health. Other topics included: referrals and emotional regulation. Eye Contact:: Good Motor Activity:: Appropriate Appearance:: Casual Speech:: Appropriate Mood:: Irritable Affect:: Congruent - tearful Thoughts:: Linear, Logical, No evidence of hallucinations/delusions noted Staff Interventions:: Therapist used open-ended questions and active listening to gather information on goals since last session. Therapist explored barriers to follow through and provided psychoeducation on communication potholes. Therapist used strengths perspective to empower client on generalization of coping skills. Therapist reviewed effective communication, fair-fighting rules, and emotional regulation skills. Therapist encouraged client to practice self- advocacy. Therapist will give referrals to marriage therapists in the area per client and request. Client Response:: Client and her responded well to session, open to meeting with therapist. Couple shared their perspective on progress since last session. Both admitted to limited follow through with shared goals. Client reports following through using self-talk, distractions, and calming skills to regulate emotions. reports their communication and his emotional regulation is ?not better, but not worse.? Client became frustrated by this and advocated for herself by saying ?he is not being honest... he and I both know it?s been worse.? then admitted that he has not been regulating his emotions well or working on goals. Discussed benefits of seeking individual therapy and couple receptive to getting referrals for marriage counseling to work on their communication and conflict issues. Discussed fair-fighting rules as well as communication potholes that impact client?s mental health. Client?s potholes included: making assumptions, interrupting, being too direct, and taking long pauses. ?s potholes included: using blaming language, jumping to conclusions, not listening to client, and being impatient. Client selected wanting to work on challenging her assumptions and practicing distress tolerance. willing to work on active listening. Risks/Concerns:: Client denies any suicidal ideations, plan, or intent as of 03/19/20. Client is future oriented. Progress Toward Goals/Plan:: Client appears to be making progress towards her tx goals AEB report of no suicidal ideations and report of generalizing coping skills at home. Client continues to show high engagement in group and individual sessions. Client and admit that their communication continues to be ineffective which impacts client?s mental health. Receptive to getting marriage counseling. Client continues to endorse a depressed mood, anhedonia, crying spells, anxiety, ruminations, negative thinking, and worthlessness. Will continue IOP tx to prevent decompensation that may require hospitalization, reduce negative thinking, and increase healthy coping skills. Time Stopped:: 14:35
--- NOTE | 2020-03-20 11:20 | BH.SGPN.GN ---
Behaviors/Verbalizations/Mental Status: []Client alert and orient. Appearance casual and appropriately groomed. Speech an appropriate rate and tone. Motor activity WNL. Mood anxious and dysthymic, affect congruent. No evidence of delusion or hallucinations.? Client Response/Progress/Benefit: [] Client receptive of group, providing input and taking notes during discussion. Client engaged throughout discussion identifying then importance of having balanced sources of motivation. Group noted benefits to include; needs getting met, continued motivation when supports aren?t available as well as using supports when internally ?exhausted?, greater sense of accountability, motivation is more sustainable, and improved ability to accomplish goals. Client again provided input and took notes as group brainstormed potential strategies for improving internal motivation. Client willing to identify a specific strategy she can apply to improve own internal motivation levels. Identified wanting to focus on improving internal motivating factor of improving her relationship with self by making time to practice self-compassion. Client appeared to benefit from increasing awareness of strategies for improving internal motivation. Progress noted in improved use of thought challenging skills, though continues to struggle with challenging distorted thinking patterns. Client will continue IOP tx to further improve symptom management, promote healthy coping skill application, and improve daily functioning. Narrative Note: []
--- NOTE | 2020-03-21 09:05 | BH.SGPN.GN ---
This psychotherapy group was provided via telehealth using two-way, real-time interactive telecommunication technology between the patients and the provider. The interactive telecommunication technology included audio and video. The patient was offered telemedicine as an option for care delivery during the COVID-19 pandemic and consented to this option. Patient location: [place] Provider located at [facility] Behaviors/Verbalizations/Mental Status: [] Client alert and oriented, casually dressed and groomed. Eye contact good. Motor activity WNL. Speech within normal limits. Affect congruent, mood euthymic. Thoughts linear, logical, no signs of hallucinations or delusions. Reviewed client?s symptom tracker, no risk for suicidal ideation, plan, or intent as of 03/21/20. Client Response/Progress/Benefit: []Pt responded well to session, actively listening throughout and openly processed with group. Pt reports feeling ?happy, excited, and hopeful this morning which she attributed to setting aside time to celebrate her 3 year anniversary with her this morning. Noted going to [employer] to ?treat ourselves? and spend some quality time together. Pt discussed that continuing to reach out to her supports and not isolate as well as remind herself to focus on she is grateful for as current positives continuing to promote mental health progress. Indicated she is additionally looking forward to celebrating her brother?s birthday with her family this evening. Pt noted that although finances continue to be an area of significant stress, she is doing better not to catastrophize and instead focus on what is within her control. Appeared to benefit from group support and structure. Progress in overall improvement of skill application and communication, as well as self-reports of reduced depression. Pt recommended continued IOP tx to further continue to promote healthy change behaviors and self-care skills, as well as prevent decompensation. Narrative Note: []
--- NOTE | 2020-03-21 10:20 | BH.SGPN.GN ---
This psychotherapy group was provided via telehealth using two-way, real-time interactive telecommunication technology between the patients and the provider. The interactive telecommunication technology included audio and video. The patient was offered telemedicine as an option for care delivery during the COVID-19 pandemic and consented to this option. Patient location: [place] Provider located at [facility] Behaviors/Verbalizations/Mental Status: []Client alert and oriented, casually dressed, hygiene appeared to be tended to. Eye contact fair. Motor activity appropriate. Speech within normal limits. Affect constricted, mood anxious. Thoughts linear, logical, no signs of hallucinations or delusions. Client Response/Progress/Benefit: []Client responded well to session, attentive and engaged throughout discussion and activity. Client reported she tries to ignore her failures because doesn't want to further highlight her shortcomings. Client stated I already talk negatively enough about myself so don't want to add to the negatives. Group reported fear of failure can lead to depression, quitting, low self-esteem, and staying stuck. Client seemed to connect how failures can lead to positive changes. Client appeared to benefit from gaining awareness of the impact of fear of failure can have on one?s mental health and wellbeing. Will continue IOP tx to prevent decompensation, challenge distorted thoughts, and continue use of healthy coping skills. Narrative Note: []
--- NOTE | 2020-03-21 11:18 | BH.SGPN.GN ---
This psychotherapy group was provided via telehealth using two-way, real-time interactive telecommunication technology between the patients and the provider. The interactive telecommunication technology included audio and video. The patient was offered telemedicine as an option for care delivery during the COVID-19 pandemic and consented to this option. Patient location: [place] Provider located at [facility] Behaviors/Verbalizations/Mental Status: []Client alert and oriented, casual appearance. Eye contact good. Motor activity appropriate. Speech within normal limits. Affect congruent-tearful, mood dysthymic. Thoughts linear, logical, no signs of hallucinations or delusions Client Response/Progress/Benefit: []Client responded well to session, participating during the group activity and willing to complete the worksheet. Client completed the fear of failure worksheet and reported that fear of failure has kept client from ?being hopeful, getting excited, and allowing myself to be happy.? Client able to identify barriers that reinforce fear of failure which included: negative core beliefs, fear of success, and disqualifying the positives. Client attentive during discussion of the different strategies to help overcome fear of failure. Group identified strategies and client selected catching negative thoughts and practicing self-compassionate statements. Client appeared to benefit from learning ways to overcome fear of failure. Will continue IOP tx to reduce negative thinking that reinforces depression and anxiety, improve mood stability, and increase self-confidence. Narrative Note: []
--- NOTE | 2020-03-23 09:00 | BH.SGPN.GN ---
Behaviors/Verbalizations/Mental Status: [] Eye contact is good. Motor activity is appropriate. Appearance is disheveled. Speech is Appropriate. Mood is depressed. Affect is flat. Thoughts are linear and logical. No evidence of psychosis. Reviewed daily check in sheet and no reports of suicidal ideations or intent. Client Response/Progress/Benefit: [] Pt participated in group discussion. Provided appropriate feedback. Pt shared that yesterday was not a good day. Reports several physical and medical issues which is ultimately impacting her mental health. Reports that she has been in continuous pain for the past 2 days which has also impacted her sleep. She visited with her PCP and was sobbing in the office due to the pain. Primary issue seems to be sinus/ear infection and bone spurts. Shared that she has thoughts of utilizing self-injurious behaviors to distract her from her physical pain however did not follow through with these thoughts. She utilized skills and spoke with her support. Group praised her for this. Regression mainly related to medical complications. Will continue in IOP to maintain safety, stabilize mood, and improve healthy coping skills. Narrative Note: [] This psychotherapy group was provided via telehealth using two-way, real-time interactive telecommunication technology between the patients and the provider.?The interactive telecommunication technology included audio and video.? ?The patient was offered telemedicine as an option for care delivery during the COVID-19 pandemic and consented to this option. ?Patient location: [place] ?Provider located at [facility]
--- NOTE | 2020-03-23 10:20 | BH.SGPN.GN ---
This psychotherapy group was provided via telehealth using two-way, real-time interactive telecommunication technology between the patients and the provider.?The interactive telecommunication technology included audio and video.? ?The patient was offered telemedicine as an option for care delivery during the COVID-19 pandemic and consented to this option. ?Patient location: [place] ?Provider located at [facility] Behaviors/Verbalizations/Mental Status: []Client alert and oriented, disheveled appearance. Eye contact fair. Motor activity appropriate. Speech within normal limits. Affect flat- reports a lot of physical pain today, mood dysthymic. Thoughts linear, logical, no signs of hallucinations or delusions. Client Response/Progress/Benefit: []Client was an active participant AEB client providing input throughout discussion and attentively listening to peers. Client connected with how having a negative perspective can keep you stuck, prevent a person from getting help, and cause worsening mental health symptoms. Client worked with group to identify how negative perspective can impact mental health which included: self-fulfilling prophecy, worse mood, and negative thinking.?Client helped group discuss ways a positive perspective can impact mental health such as: seeking treatment, challenging distortions, and improved mood. Client shared she has been trying to use a more positive perspective in IOP. Client stated she tells herself ?you?re your eye on the ruth and go moment by moment.? Client reports saying this to herself never gets easier, but client reports belief she is getting better at this. Client appeared to benefit from increasing understanding of mental health benefits of a positive perspective and potential consequences to progress when perspective is negative. Client will continue IOP tx to prevent decompensation, reduce negative thinking, and improve application of healthy coping skills. Narrative Note: []
--- NOTE | 2020-03-23 11:20 | BH.SGPN.GN ---
Behaviors/Verbalizations/Mental Status: [] Eye contact is poor. Motor activity is appropriate. Appearance is disheveled. Speech is Appropriate. Mood is depressed. Affect is flat. Thoughts are linear and logical. No evidence of psychosis. Client Response/Progress/Benefit: [] Pt was an active participant in group discussion. Attentive during psycho-education. Active participant in group discussion on the impact of perspective on how we view ourselves. Pt worked with the group to develop a working definition of the term strengths and the importance of recognizing one's strengths. Pt was given a worksheet and was asked to [place] at least 3 strengths which she completed. Group then worked together to identify strategies to remind themselves of their strengths which included; picking one strength per day, asking support to tell us one of our strengths, track our accomplishments, daily affirmations, and creating a gratitude journal. Progress noted. Benefited from increased awareness of the role of perspective and strengths in daily mental health wellness. Will continue in IOP to maintain safety and prevent decompensation. Narrative Note: [] This psychotherapy group was provided via telehealth using two-way, real-time interactive telecommunication technology between the patients and the provider.?The interactive telecommunication technology included audio and video.? ?The patient was offered telemedicine as an option for care delivery during the COVID-19 pandemic and consented to this option. ?Patient location: [place] ?Provider located at [facility]
--- NOTE | 2020-03-26 09:00 | BH.SGPN.GN ---
This psychotherapy group was provided via telehealth using two-way, real-time interactive telecommunication technology between the patients and the provider. The interactive telecommunication technology included audio and video. The patient was offered telemedicine as an option for care delivery during the COVID-19 pandemic and consented to this option. Patient location: [place] Provider located at [facility] Behaviors/Verbalizations/Mental Status: []Client alert and oriented, casually dressed. Eye contact good. Motor activity appropriate. Speech within normal limits. Affect congruent, mood anxious. Thoughts linear, logical, no signs of hallucinations or delusions. Reviewed client?s symptom tracker, no risk or plan for suicide ideation as of 03/26/20. Client Response/Progress/Benefit: []Client responded well to session, engaged and participated throughout. Client shared feeling anxious as she is preparing for guests and has many things to do around the house. Client states her other major stressor as her ?memory going blank, and being forgetful.? Client shared she can not recall certain things that occurred even though she was awake and completed tasks. Client shared she could not remember what happened throughout the day, and her had to tell her what she did. Group members offered helpful feedback and she gained insight of healthy coping skills to use like journaling, grounding, and breathing techniques. Client identified seeing her mother and going to a doctor's appointment today as a positive. Client benefited from group as she gained helpful feedback from group members to lessen anxiety symptoms. Client will continue IOP to prevent decompensation, improve the use of healthy coping skills, and reduce negative thinking. Narrative Note: []
--- NOTE | 2020-03-26 11:15 | BH.SGPN.GN ---
Behaviors/Verbalizations/Mental Status: [] Client alert and oriented, casually dressed and appropriately groomed. Eye contact good. Motor activity appropriate. Speech within normal limits. Affect congruent. mood euthymic and anxious. Thoughts linear, logical, no signs of hallucinations or delusions. Client Response/Progress/Benefit: [] Client engaged in session AEB client taking notes and providing input to discussion. Attentive during psychoeducation on 4 zones of regulation and able to identify feelings and behaviors for each zone. Client reported feeling she can relate to several of the emotions and behaviors discussed in the different zones. Expressed that in the blue and yellow zones she tends to isolate, shut down, and avoid. Noted that in the blue zone these behaviors are due to feeling depressed while in the yellow zone they are often anxiety related. Group identified coping skills one can use to support self in each zone. Client reported she will practice the skills of continuing to reach out to supports, positive self-talk, and ongoing therapy to aid in continuing to move towards the green zone. Benefited from increased education on zones of regulation or stages of alertness for emotions and healthy coping skills to use for each zone. Progress noted in client self-report of improved communication with supports and emotion regulation, though continues to struggle with disqualifying the positives which impacts emotion regulation. Will continue IOP tx to continue use of healthy coping skills, challenge negative thought patterns, improve use of supports, and prevent decompensation. Narrative Note: []
--- NOTE | 2020-03-26 14:03 | BH.MDN_ITS ---
Multi-Disciplinary Note - Note 45-min Individual Time Started:: 11:57 Date: 03/26/20 Purpose of session/treatment goals addressed:: The purpose of this session was to address current symptoms, tx goals, and progress. Another goal was to discuss aftercare and review healthy coping skills. Symptoms/Behavior:: This counseling session was provided via telehealth using two-way, real-time interactive telecommunication technology between the patient and the clinician. The interactive telecommunication technology included audio and video. The patient was offered telehealth as an option for care delivery during the COVID-19 pandemic and consented to this option. Patient location: [place]. Provider located at [facility] Eye Contact:: Good Motor Activity:: Appropriate Appearance:: Neat Speech:: Appropriate Mood:: Anxious Affect:: Congruent - became tearful while discussing financial stress Thoughts:: Linear, Logical, No evidence of hallucinations/delusions noted Staff Interventions:: Therapist used active listening and emotional support while exploring client's current symptoms and stressors. Therapist used cognitive restructuring to help client reframe negative thinking. Therapist adminstered the DSM-5 and processed it with client. Therapist reviewed healthy coping skills with client to manage triggers and negative thinking. Therapist gave client homework to reflect on areas of growth since admission. Client Response:: Client responded well to session, open to meeting with therapist. Client reports overall feeling better, but because of financial stressors, client still experiences hopelessness from time to time. Client recognized progress in the fact that client no longer thinks suicide is an option and client tells herself this will get better. Client completed the DSM-5 and reported excitement about her progress. Client shared I was worried I wasn't ready to discharge, but maybe I'm more ready than I thought. Client identified strategies to promote gains such as positive self-talk, thought challenging, grounding, crafting, and keeping track of her wins. Client receptive to reflecting on her areas of growth since admission, but reports feeling nervous that this will cause client to feel depressed. Normalized that client may experience unpleasant emotions when reflecting, but client knows skills to reduce the duration and intensity of these emotions. Discussed the stategy thoughts are thoughts and emotions are emotions, not fact. Client also expressed concerns about memory issues she has been having. Receptive to logging activies throughout her day and practicing affirmations. Risks/Concerns:: Client denies any active suicidal ideations, plan, or intent as of 03/26/20. Client reports only having suicidal thoughts within the last two weeks. Client continues to be future oriented and motivated. Progress Toward Goals/Plan:: Client completed the DSM-5 as an evaluation of progress. Client's overall DSM-5 scores decreased by 48% since admission. Depression decreased by 40% and anxiety decreased by 60%. Client continues to report financial stressors, health issues, negative core beliefs, and mild symptoms of anxiety and depression. Client and her start marriage counseling next week. Client can benefit from two more weeks of IOP tx to promote gains and further improve daily functioning. Time Stopped:: 12:37
--- NOTE | 2020-03-26 14:27 | BH.MTP_ITS ---
Treatment Plan Review Date of Admission:: 02/21/20 Date of Treatment Plan Review:: 03/26/20 Admitting Diagnoses:: Major depressive disorder, recurrent, severe without psychosis F33.2; generalized anxiety disorder; Rule out dependent personality traits. Current Diagnoses:: Major depressive disorder, recurrent, severe without psychosis F33.2; generalized anxiety disorder; Rule out dependent personality traits. Patient's Response to Treatment:: Client has been responding well to treatment and is demonstrating progress towards her treatment goals AEB reduction in DSM-5 scores and high engagement in group and individual sessions. Client has been using healthy coping skills including deep breathing, positive self-talk, grounding, affirmations, assertive communication, and thought challenging. Client is currently dealing with financial stressors, health issues, and negative thinking that reinforces anxiety and depression. Client is an active group member who often gives insight to discussion, feedback to peers, and connects the topics to her daily life. Client is highly engaged in her individual sessions and is consistent with homework and skill utilization outside of group. Client's consistent application of skills is likely the pau son for her reduction in symptoms and improved mood. Client is established with aftercare and would like to join the [facility] aftercare group when she discharges. Status of Current Problems and Symptoms: Client reports financial stressors, ongoing health issues, issues with memory, and some martial stress. Client's symtpoms have decreased, but client continues to endorse crying spells, negative thinking, occasional hopeless thoughts, and irritability. Problem #1 Problem Name:: Pt. will decrease depressive sx, isolation, guilt, and passive wishes Status of Goals:: Objective-1 complete. With maintenance encouraged. Client?s DSM-5 scores for depression have decreased by 40% since admission. Client reports using opposite action, self-care, support, and thought challenging to manage depression. Objective- 2 partially complete. Client can identify negative statements and has been practicing thought challenging. Client continues to struggle with inappropriate guilt and negative core beliefs that will take time to change. Team Recommendations:: Client encouraged to continue working on this treatment goal to reinforce healthy coping skills and to further decrease depressive symptoms. Client and therapist currently working on changing negative core beliefs, thought challenging, and positive self-talk. Problem #2 Problem Name:: Pt. will reduce overall frequency, intensity, and duration of anxiety Status of Goals:: Objective 1-complete with maintenance encouraged. Client can identify her warning signs for anxiety and has been using grounding, affirmations, and breathing to manage symptoms. Client?s DSM-5 scores for anxiety have decreased by 60% since admission. Objective 2- complete with maintenance encouraged to improve cognitive restructuring. Client can identify distortions and practices thought challenging, but continues to struggle with catastrophizing thinking. Team Recommendations:: Client encouraged to continue working on this treatment goal to reinforce healthy coping skills and to further decrease anxiety symptoms. Client and therapist currently working on mindfulness, verbalizing needs, thought challenging, and self-compassion.
--- NOTE | 2020-03-27 09:04 | BH.SGPN.GN ---
This psychotherapy group was provided via telehealth using two-way, real-time interactive telecommunication technology between the patients and the provider.?The interactive telecommunication technology included audio and video.? ?The patient was offered telemedicine as an option for care delivery during the COVID-19 pandemic and consented to this option. ?Patient location: [place] ?Provider located at [facility] Behaviors/Verbalizations/Mental Status: [] Client alert and oriented, neat and casually dressed and groomed. Eye contact good. Motor activity appropriate. Speech within normal limits. Affect congruent, mood euthymic. Thoughts linear, logical, no signs of hallucinations or delusions. Reviewed client?s symptom tracker, no risk for suicidal ideation, plan, or intent as of 03/27/20. Client Response/Progress/Benefit: []Pt receptive to session, actively listening and willing to process with group, as well as provided feedback throughout. Pt reports feeling ?excited and hopeful this morning which she attributed to challenging herself to focus more on positives and actively practice gratitude rather than become stuck on her stressors. Did well to identify current mental health wins which included: beginning to keep a journal logging daily tasks, as well as practicing more self-care via challenging her thoughts and reaching out to supports. Client noted that she does not have a current stressor as she has several positive things to look forward to such as her in-laws visiting. Pt appeared to benefit from group support and structure. Progress noted in improved thought challenging and reported improved mood as well. Pt recommended continued IOP tx to further promote healthy change behaviors, improve communication skills with , as well as prevent decompensation. Narrative Note: []
--- NOTE | 2020-03-27 10:13 | BH.SGPN.GN ---
This psychotherapy group was provided via telehealth using two-way, real-time interactive telecommunication technology between the patients and the provider.?The interactive telecommunication technology included audio and video.? ?The patient was offered telemedicine as an option for care delivery during the COVID-19 pandemic and consented to this option. ?Patient location: [place] ?Provider located at [facility] Behaviors/Verbalizations/Mental Status: []Client alert and oriented, casual dress, hygiene tended to. Eye contact good. Motor activity appropriate. Speech within normal limits. Affect constricted, mood euthymic. Thoughts linear, logical, no signs of hallucinations or delusions. Client Response/Progress/Benefit: []Client responded well to session, attentive and occasionally contributing to discussion. Client worked cooperatively with the group to identify factors that contributed to how we define ourselves which included: upbringing, societal expectations, culture/environment, how well we function, failures, trauma, and how others view us. Client reported she has experienced the impacts of mental health stigma and shared ?I had to get out of the mindset that my illness defined me.? Client stated mental health stigma can cause shame and hiding. Client worked with group to identify and discuss social and perceived stigma. Client seemed to benefit from increased awareness of how mental health stigma can impact progress and self-worth. Client to continue IOP tx to further reduce negative self-talk, improve mood stability, and promote gains. Narrative Note: []
--- NOTE | 2020-03-27 11:20 | BH.SGPN.GN ---
This psychotherapy group was provided via telehealth using two-way, real-time interactive telecommunication technology between the patients and the provider. The interactive telecommunication technology included audio and video. The patient was offered telemedicine as an option for care delivery during the COVID-19 pandemic and consented to this option. Patient location: [place] Provider located at [facility] Behaviors/Verbalizations/Mental Status: []Client alert and oriented, casually dressed, hygiene appeared to be tended to. Eye contact fair. Motor activity appropriate. Speech within normal limits. Affect congruent, mood euthymic. Thoughts linear, logical, no signs of hallucinations or delusions. Client Response/Progress/Benefit: []Client responded well to session AEB listening and taking notes, as well as providing input at times during session. Engaged in activity about facts and statistics of mental illness. Group connected with the mental health statistics, recognizing the prevalence of mental health. Group brainstormed strategies to combat social and perceived stigma which included: educating others, no longer using negative language about mental illness, being open about mental health, self-compassion and not reinforcing stigma with behaviors or labels. Client stated she would benefit from engaging in self-compassion in order to reduce perceived mental health stigma. Client reported she often expects too much of herself which leads her to verbally beating myself up. Client stated being self-compassionate would could have positive impact on her menta health. Appeared to benefit from increasing awareness of strategies to combat stigma. Will continue IOP tx to continue use of healthy coping, challenge negative thoughts and prevent decompensation. Narrative Note: []
--- NOTE | 2020-03-29 09:00 | BH.SGPN.GN ---
This psychotherapy group was provided via telehealth using two-way, real-time interactive telecommunication technology between the patients and the provider. The interactive telecommunication technology included audio and video. The patient was offered telemedicine as an option for care delivery during the COVID-19 pandemic and consented to this option. Patient location: [place] Provider located at [facility] Behaviors/Verbalizations/Mental Status: []Client alert and oriented, casually dressed. Eye contact good. Motor activity appropriate. Speech within normal limits. Affect congruent, mood anxious. Thoughts linear, logical, no signs of hallucinations or delusions. Reviewed client?s symptom tracker, no risk or plan for suicide ideation as of 03/29/20. Client Response/Progress/Benefit: []Client was cooperative and responded well to group. Client engaged and participated throughout group discussion. Client shared her goal was to increase self-compassion and catch negative thoughts. Client reports ongoing work on this goal. Client expressed she has recognized the importance of taking care of herself as her physical health has been a stressor recently. Client shared her has helped decrease her anxiety and stress. Client benefited from group as she recognized the importance of self-care and self-compassion. Client will continue IOP to prevent decompensation and further promote use of coping skills. Narrative Note: []
--- NOTE | 2020-03-29 10:20 | BH.SGPN.GN ---
Behaviors/Verbalizations/Mental Status: []Client alert and oriented, casually dressed and appropriately groomed. Eye contact fair. Motor activity appropriate. Speech within normal limits. Affect congruent, mood euthymic. Thoughts linear, logical, no signs of hallucinations or delusions. Client Response/Progress/Benefit: []Client engaged during session AEB client providing input throughout session and listened attively to others. Client worked with peers on defining goals and brainstormed with the group the benefits of goal setting. Client stated goals can help hold us accountable. Client helped group discuss the barriers that keep people from either setting goals are following through with goals. Client stated a negative mindset can set us up for a self-fulfilling prophecy by already telling ourselves w are going to fail. Client able to provide feedback during psychoeducation on SMART goals. Client appeared to benefit from learning the mental health benefits of setting goals that are SMART. Will continue IOP tx prevent decompensation, continue practicing healthy coping skills and improve daily functioning. Narrative Note: []
--- NOTE | 2020-03-29 11:15 | BH.SGPN.GN ---
This psychotherapy group was provided via telehealth using two-way, real-time interactive telecommunication technology between the patients and the provider.?The interactive telecommunication technology included audio and video.? ?The patient was offered telemedicine as an option for care delivery during the COVID-19 pandemic and consented to this option. ?Patient location: [place] ?Provider located at [facility] Behaviors/Verbalizations/Mental Status: []Eye contact is good. Motor activity is appropriate. Appearance is neat. Speech is Appropriate. Mood is euthymic. Affect is congruent. Thoughts are linear and logical. No evidence of psychosis Client Response/Progress/Benefit: []Client was engaged during discussion, did well to complete activity and process with the group. Client was willing to complete the worksheet in which she was challenged to develop a personal SMART goal. Client chose the goal; to read her positive affirmation list every morning for one week. When asked why this goal was important and beneficial to client's mental health, she stated this will help client have a positive perspective and ?be mentally stronger.? Client identified her barriers which included: forgetting and negative thoughts. Client receptive to identifying solutions for these barriers and willing to begin working on this goal. Benefited from this group by developing a short-term SMART goal related to mental health. Will continue IOP tx to promote gains made in managing depressive symptoms and to further reduce negative thinking. Narrative Note: []
--- NOTE | 2020-04-04 09:02 | BH.SGPN.GN ---
This psychotherapy group was provided via telehealth using two-way, real-time interactive telecommunication technology between the patients and the provider.?The interactive telecommunication technology included audio and video.? ?The patient was offered telemedicine as an option for care delivery during the COVID-19 pandemic and consented to this option. ?Patient location: [place] ?Provider located at [facility] Behaviors/Verbalizations/Mental Status: []Client alert and oriented, neatly dressed and groomed. Eye contact good. Motor activity appropriate. Speech rapid. Affect congruent-tearful, mood anxious and frustrated. Thoughts linear, logical, no signs of hallucinations or delusions. Reviewed client?s symptom tracker, no risk for suicidal ideation, plan, or intent as of 04/04/20. Client Response/Progress/Benefit: []Client entered session attentive and engaged, but appeared distressed today. Client reports feeling anxious, hopeless, and frustrated this morning. Client stated yesterday she had to go to the ER due to ongoing medical issues. client shared she feels frustrated and hopeless because client continues to not know what is causing all of her medical problems. Client receptive to supportive statements from peers and able to catch negative thought patterns in the moment. Client appeared to benefit from reflecting on thought challenging techniques. Client recognizes this is a setback in her treatment, but client remains aware of her progress. Will continue IOP tx to promote the use of healthy coping skills and combat distortions. Narrative Note: []
--- NOTE | 2020-04-04 11:20 | BH.SGPN.GN ---
Behaviors/Verbalizations/Mental Status: [] Client alert and oriented, casually dressed and groomed. Eye contact good. Motor activity appropriate. Speech within normal limits. Affect congruent, mood euthymic. Thoughts linear, logical, no signs of hallucinations or delusions Client Response/Progress/Benefit: []Client responded well to session, actively listening and provided input as the group discussed the different categories of coping skills which included distraction, emotional release, grounding, self-love, and thought challenging. Appeared to connect with and provided examples for each coping category. Client wrote down several examples shared by fellow participants and discussed her own experiences with coping skills such as progressive muscle relaxation. Expressed that she has been working to build up skills in a variety of these categories, specifically those of self-love as this is where she particularly struggles. Client participated in creating a coping skills ?menu? for the five categories of coping skills. Client's coping skill menu included: music, thought challenging/reframing, cleaning, and talking to supports. Shared wanting to focus on more active application of healthy thought challenge skills by more actively applying reframing to her distortions when recognizing them. Client progress noted in self-report of improved confidence and decreased depressive sx. Appeared to benefit from increasing repertoire of healthy coping skills. Will continue tx to further improve mood stability and communication skills, as well as prevent decompensation. Narrative Note: []
--- NOTE | 2020-04-05 09:00 | BH.SGPN.GN ---
This psychotherapy group was provided via telehealth using two-way, real-time interactive telecommunication technology between the patients and the provider. The interactive telecommunication technology included audio and video. The patient was offered telemedicine as an option for care delivery during the COVID-19 pandemic and consented to this option. Patient location: [place] Provider located at [facility] Behaviors/Verbalizations/Mental Status: []Client alert and oriented, casual dress, hygiene tended to. Eye contact fair. Motor activity appropriate. Speech within normal limits. Affect congruent, mood anxious. Thoughts linear, logical, no signs of hallucinations or delusions. Reviewed client?s symptom tracker, pt denies current suicidal thoughts or intention to date. Client Response/Progress/Benefit: [] Patient responded well to session as evidenced by her sharing thoughts and feelings and appeared to listen attentively to others. Patient reported I kind of failed at my game plan of thought challenge and reframing. Patient explained that she was struggling with obsessive thoughts and over planning that led to negative thoughts like I am never going to get better. Patient stated with assistance from her she was able to stop herself from going down the rabbit hole. Patient stated she also did not berate herself for struggling to challenge the negative thoughts on her own. Patient stated current stressor is anxiety about her pulmonary doctor just telling her that her body is not getting enough oxygen. Progress noted with patient recognizing herself going into a negative state and was able to utilize supports to help her get back on track. Patient is to continue IOP level of care to continue using healthy coping skills, challenge to her thought patterns, and prevent decompensation. Narrative Note: []
--- NOTE | 2020-04-05 11:12 | BH.SGPN.GN ---
This psychotherapy group was provided via telehealth using two-way, real-time interactive telecommunication technology between the patients and the provider.?The interactive telecommunication technology included audio and video.? ?The patient was offered telemedicine as an option for care delivery during the COVID-19 pandemic and consented to this option. ?Patient location: [place] ?Provider located at [facility] Behaviors/Verbalizations/Mental Status: []Client alert and oriented, neatly dressed and groomed. Eye contact good. Motor activity appropriate. Speech within normal limits. Affect congruent, mood euthymic. Thoughts linear, logical, no signs of hallucinations or delusions. Client Response/Progress/Benefit: []Client was an active participant in group discussion and provided insight on group topic. Attentive during psychoeducation on mindfulness coping skills and their impact on mental health wellness. Practiced 5-senses, guided imagery, and PMR with group. Client was able to identify self-soothing and mind-based coping skills she wants to incorporate into her current coping skill practice. The skills client chose to practice were singing and reframing negative thoughts using affirmational statements. Appeared to benefit from practicing in the moment coping skills. Progress noted as client continues to not have SI and reports consistent application of coping skills. Will continue IOP tx to promote gains and reinforce healthy coping skills. Narrative Note: []
--- NOTE | 2020-04-06 09:05 | BH.SGPN.GN ---
This psychotherapy group was provided via telehealth using two-way, real-time interactive telecommunication technology between the patients and the provider. The interactive telecommunication technology included audio and video. The patient was offered telemedicine as an option for care delivery during the COVID-19 pandemic and consented to this option. Patient location: [place] Provider located at [facility] Behaviors/Verbalizations/Mental Status: []Client alert and oriented, casually dressed. Eye contact good. Motor activity appropriate. Speech within normal limits. Affect congruent, mood anxious. Thoughts linear, logical, no signs of hallucinations or delusions. Reviewed client?s symptom tracker, no risk or plan for suicide ideation as of 04/06/20. Client Response/Progress/Benefit: []Client responded well to group, engaged and participated throughout discussion. Client shared her negative thoughts have led her to over research via internet her medical conditions and has convinced herself she is dying. Client explained she reached out to her support and talked with her to challenge the negative distortions. Client discussed other healthy coping skills to use to resist the urge to research as completing crafts and doing easy yoga. Client shared she will be joining an online choir via [employer]. Client benefited from group as other group members could help identify healthy coping skills and reframe the negative thoughts. Client will continue IOP and discharge next week. Client can benefit from one more IOP session to reinforce healthy coping skills and challenge distortions. Narrative Note: []
--- NOTE | 2020-04-06 13:34 | BH.MDN ---
Multi-Disciplinary Note - Note 30-min Individual Time Started:: 10:38 Date: 04/06/20 Purpose of session/treatment goals addressed:: The purpose of this session was to review application of coping skills, establish aftercare, and discuss ways to reduce safety behaviors. Symptoms/Behavior:: This counseling session was provided via telehealth using two-way, real-time interactive telecommunication technology between the patient and the clinician. The interactive telecommunication technology included audio and video. The patient was offered telehealth as an option for care delivery during the COVID-19 pandemic and consented to this option. Patient location: [place]. Provider located at [facility] Eye Contact:: Good Motor Activity:: Appropriate Appearance:: Casual Speech:: Appropriate Mood:: Euthymic Affect:: Congruent Thoughts:: Linear, Logical, No evidence of hallucinations/delusions noted Staff Interventions:: Therapist used active listening and open-ended questions to gather information on client's current symptoms, stressors, and application of coping skills. Therapist explored areas of progress as well as identified coping skills client can use to promote gains. Therapist discussed strategies client can use to reduce safety behaviors and promote positive use of free time. Therapist gave client a quote collage for closure. Client Response:: Client responded well to session, open to meeting with therapist. Client shared she feels at peace for the first time in a very long time. Client stated she accomplished several big tasks, received financial support from her adventism, and has been using self-care. Client shared she is sad to be leaving [facility], but recognizes that she has made significant progress. Client identified her progress to be no more suicidal thoughts, increased self-care, the ability to reframe negative thoughts, and reduced panic. Client shared she often uses the coping skill thoughts are thoughts not facts and emotions are emotions not facts. Client has been singing, crocheting, and reaching out to supports. Client had a setback earlier in the week which client felt was a good thing as it helped client gain awareness and problem-solve. Client recognized she was engaging in some reassurance seeking via [employer] for client's medical symptoms. Client was able to see this was increasing anxiety and problem-solved alternative, healthier responses. Client feels ready to discharge next week. Risks/Concerns:: Client denies any suicidal ideations, plan, or intent as of 04/06/20. Client shared I can't remember the last time I had suicidal thoughts. Future oriented and positive. Progress Toward Goals/Plan:: Client has been demonstrating progress towards treatment goal AEB client's self-report of improved mood, use of coping skills, no suicidal ideations, and ability to reframe negative thoughts. Client denies panic attacks, has been consistently using thought challenging, and is more engaged with supports. Client's progress suggests that client is ready to transition to outpatient level of care. Client will discharge from [facility] on 04/10/20. Client will follow up with her outpatient therapist, marriage counseling, and [facility] aftercare group starting on 04/12/20. Time Stopped:: 11:01
== END 2020-04-07 23:59 ==
LOC: BHIOP 09:00
PROVIDERS: PCP Nurse Practitioner; Referring Provider Psychiatry & Neurology Psychiatry; Visit Provider Psychiatry & Neurology Psychiatry
DX: F33.2 Major depressive disorder, recurrent severe without psychotic features (principal); F41.8 Other specified anxiety disorders
CPT/HCPCS: H0035; 90832; 90834; 90847; 90853

== ENCOUNTER → 2020-03-30 08:06 | Outpatient (CLI) | payer OTHER, SELFPAY ==
[2020-03-09 12:51] VITALS: BMI 44.4
--- NOTE | 2020-03-30 08:08 | CT_ITS ---
STUDY: CT MAXILLOFACIAL SINUSES REASON FOR EXAM: Female, 34 years old. Bone spur. Hx hypertension, asthma, Adriane. RADIATION DOSAGE (If Supplied By Facility): CTDIvol = ( 29.38 ) mGy, DLP = ( 437.27 ) mGycm TECHNIQUE: The patient was scanned in a multi detector CT scanner. High resolution axial imaging was performed without the administration of intravenous contrast material. Sagittal and coronal images were reconstructed. Individualized dose optimization techniques were used for this CT. COMPARISON: None. FINDINGS: FRONTAL SINUSES: Normal aeration, without mucosal inflammatory disease. ETHMOIDAL SINUSES: Normal aeration, without mucosal inflammatory disease. MAXILLARY SINUSES: Mucosal thickening along the inferior aspect of the right maxillary sinus. SPHENOIDAL SINUSES: Normal aeration, without mucosal inflammatory disease. There is patency of the bilateral maxillary infundibuli with normal uncinate processes, ethmoid bullae, and hiatus semilunaris. Normal bilateral middle turbinates. There is hypertrophy of the right inferior nasal turbinate. There is a right sided nasal septal deviation with a right sided nasal septal spur. There is patency of the bilateral nasal airways. The visualized osseous structures are normal. The visualized bilateral orbital contents are normal. CT/Sinus/Facial Bone IMPRESSION: Mucosal thickening along the inferior aspect of the right maxillary sinus. Hypertrophy of the right inferior nasal turbinate. Nasal septal deviation with the right side of the Electronically Signed: Ben Weinstein, at 14:53 EDT , Service support ,
== END ==
PROVIDERS: PCP Nurse Practitioner; Referring Provider Internal Medicine; Visit Provider Internal Medicine
DX: M77.9 Enthesopathy, unspecified (principal)
CPT/HCPCS: 70486

== ENCOUNTER → 2020-04-02 12:39 | Outpatient (CLI) | payer OTHER, SELFPAY ==
[2019-10-19 10:44] VITALS: BMI 48.4
[2020-03-09 12:51] VITALS: BMI 44.4
--- NOTE | 2020-04-02 15:38 | PFTCOMP ---
COMPLETE PULMONARY FUNCTION TEST INTERPRETATION Brief HPI: Patient is a 34 year old female, currently under the care of myself, who presents to [facility] for complete pulmonary function tests secondary to diagnosis of dyspnea. Respiratory therapist reports good effort and reproducible results. Interpretation: Forced expiration spirometry shows no large airways obstructive ventilatory defect with an FEV1 of 87% predicted. There is no significant bronchodilator response by strict ATS criteria. Spirograms are of good quality and plateau normally. The respiratory flow volume loop shows a normal pattern. Lung volumes by body plethysmography show a normal total lung capacity at 4.7 L, 100% predicted. All other lung volumes are within normal limits. Diffusion capacity by carbon monoxide is decreased at 66% predicted. The airway resistance is normal. No previous pulmonary function tests were available for review. Impression: Isolated reduction in diffusion capacity in a pattern consistent with a pulmonary vascular disorder.
== END ==
PROVIDERS: PCP Nurse Practitioner; Referring Provider Internal Medicine Cardiovascular Disease; Visit Provider Internal Medicine Cardiovascular Disease
DX: R06.00 Dyspnea, unspecified (principal)
CPT/HCPCS: 94060; 94726; 94729

== ENCOUNTER 2020-04-03 13:31 | Emergency (ER) | payer OTHER, SELFPAY ==
[2020-03-09 12:51] VITALS: BMI 44.4
[2020-04-03 13:32] VITALS: BP 152/81; PULSE 68; RESP 17; TEMP 36.2; O2SAT 100; BMI 43.7
--- NOTE | 2020-04-03 13:42 | EKG12_ITS ---
Test Reason : CP Blood Pressure : / mmHG Vent. Rate : 063 BPM Atrial Rate : 063 BPM P-R Int : 144 ms QRS Dur : 078 ms QT Int : 418 ms P-R-T Axes : 017 020 038 degrees QTc Int : 427 ms Normal sinus rhythm Normal ECG Confirmed by SAVANNAH ARTHUR, MARIA TERESA ([id number]), editor publications SABINE CISNEROS ([id number]) on 04/05/2020 9:06:43 AM Referred By: Alana Barclay Confirmed By:MARIA TERESA NUÑEZ MD
--- NOTE | 2020-04-03 14:32 | ED.DCSUM_ITS ---
History of Present Illness Chief Complaint: Hypertension Informant: Patient Narrative: Patient is a 34-year-old female who presents to the emergency department for chest tightness, dizziness and elevated blood pressure. She states that over the past 3 days she has had elevated blood pressure readings. She checked it today and it was in the 195 systolic over 110s. She is on atenolol as well as losartan. She did have a recent increase of her dose of atenolol over a week ago. She did feel the chest tightness and thought this could be related to her asthma but did not take her inhaler as this was going to raise her heart rate. She felt dizzy but denies any headache or vision changes. This has started to resolve. She denies any recent illnesses including any cough, cold, congestion. No fevers or chills. No abdominal pain. She denies any change in bowel habits. She has not had any swelling or pain in her legs. Past Medical History - Allergies and Home Meds Allergies/Adverse Reactions: Allergies No Known Allergies Allergy (Verified 04/03/20 13:35) Primary Care Physician: Fide Mahoney NP, [facility]ARE [facility]NER[facility]C [Primary Care Provider] - 2 Days Surgical History: no surgical history Smoking Status: Never smoker - Family History Maternal Family History: Family History (Last Reviewed 03/09/20 @ 13:08 by Aditi Sanches NP, [facility]) Father CVA (cerebral vascular accident) S/P AVR (aortic valve replacement) Mother Hypertension Psoriasis Grandfather Myocardial infarction Cancer Family History: Reports: Hypertension Paternal Family History: Family History (Last Reviewed 03/09/20 @ 13:08 by Aditi Sanches NP, [facility]NER[facility]C) Father CVA (cerebral vascular accident) S/P AVR (aortic valve replacement) Mother Hypertension Psoriasis Grandfather Myocardial infarction Cancer Family History: Reports: Heart Disease, Stroke Review of Systems All systems negative except as indicated General: Denies: Chills, Fever, Sweats Eyes: Denies: Visual changes - bilaterally, Diplopia ENT: Denies: Rhinorrhea, Sore throat Cardiovascular: Reports: - - Chest tightness. Denies: Chest pain, Palpitations Respiratory: Denies: Dyspnea, Cough, Dyspnea on exertion Gastrointestinal: Denies: Abdominal pain, Nausea, Vomiting, Diarrhea Genitourinary: Denies: Dysuria, Hematuria, Frequency Musculoskeletal: Denies: Back pain, Extremity Pain Skin: Denies: Rash, Wounds Neurological: Denies: Headache, Weakness, Numbness Physical Exam Vital Signs/Narrative: Vital Signs Temp Pulse Resp BP Pulse Ox 04/03/20 13:32 97.2 F L 68 17 152/81 H 100 Inital Vital Signs reviewed: Yes General: Well nourished, Well developed, No Acute Distress Head: Normocephalic, Atraumatic Eyes: Perrl, EOMI ENT: Moist mucous membranes, No rhinorrhea Neck: Supple, Nontender Cardiovascular: Regular rate, Regular rhythm, No murmurs Respiratory: No distress, CTA bilaterally, Chest nontender Abdomen: Soft, Nontender, Nondistended, Normal bowel sounds Back: Nontender, Normal Inspection Extremities: Nontender, No edema. Negative for: Calf Tenderness Skin: Normal color, No rash Neurological: Alert, Oriented x3, Cranial nerves II-XII grossly intact, Normal Strength, Normal Sensation Psychological: Normal affect, Normal Mood Diagnostic/Tx/Re-eval - EKG Initial EKG Interpretation: - - Rate of 63 beats per minute. Normal intervals. Normal axis. No ST elevations or depressions appreciated. No T wave abnormalities. - Medical Decision Making Patient presents to the emerge part for elevated blood pressure readings. She had episode of chest tightness which is since resolved. She also felt dizzy which is resolving. Her blood pressure has been trending downward. EKG, chest x-ray basic lab work obtained. Basic lab work did not reveal any significant acute abnormality. Her blood pressure did come down on its own. She is no longer experiencing any symptoms of dizziness or chest tightness. She does feel comfortable going home at this time. She is going to follow-up with her PCP tomorrow for potential medication adjustments. Warning signs and symptoms for which to return to the ED are reviewed with her. She understands and is agreeable with plan. Will discharge home in stable condition. All questions answered. ED Disposition - Plan for ED Patient: Disposition: Home or Assisted Living Diagnosis: Elevated blood pressure reading, Chest tightness, Essential hypertension Instructions: ED Hypertension Established Referrals: Fied Mahoney NP, [facility]ARE [facility]NER-C [Primary Care Provider] - 2 Days
[2020-04-03 14:39] LABS: Absolute Lymphocyte Count 2.03 X10^3/uL (0.83-4.51); Absolute Neutrophil Count 3.8 X10^3/uL (2.0-7.7); Basophil# 0.02 X10^3/uL; Basophil% 0.3 % (0-1); Eosinophil# 0.13 X10^3/uL; Hematocrit 38.8 % (37-47); Hemoglobin 12.1 g/dL (12.0-15.0); Lymphocyte # 2.03 X10^3/ul (4.0); Lymphocyte % 31.8 % (19-41); Mean Corp Hgb Conc 31.2 g/dL (32-36); Mean Corpuscular Hgb 25.9 pg (27.0-32.0); Mean Corpuscular Volume 82.9 fL (81-99); Mean Platelet Vol. 10.1 fl (6.2-12.0); Monocyte# 0.39 X10^3/uL; Monocyte% 6.1 % (0-10); NRBC Flagged by Analyzer 0 % (0-5); Neutrophil # 3.81 X10^3/uL (2.7-7.7); Neutrophil % 59.6 % (47-70); Platelet Count 254 K/mm3 (150-450); RBC Distribution Width CV 19.3 % (11.6-14.6); RBC Distribution Width SD 56.8 fl (35.1-43.9); Red Blood Count 4.68 M/mm3 (4.2-5.4); White Blood Count 6.4 K/mm3 (4.4-11.0)
[2020-04-03 14:43] LABS: Internal QC Validated? YES +Cl - CLEAR BKGD; Pregnancy, Serum, hCG Quali. NEGATIVE Negative
--- NOTE | 2020-04-03 14:45 | RAD_ITS ---
STUDY: X-RAY CHEST REASON FOR EXAM: Female, 34 years old. SOB, DIZZINESS, HYPERTENSION, CHEST TIGHTNESS TECHNIQUE: Single AP portable view of the chest. COMPARISON: None. FINDINGS: EKG electrodes are seen. The lungs are clear and expanded. There is no demonstrated pleural abnormality. Normal size heart. Normal mediastinum and esteban. Normal visualized pulmonary arteries. Normal visualized aortic arch and descending thoracic aorta. There is a dextroscoliosis of the thoracic spine. Normal visualized ribs, clavicles, and shoulders. There is no demonstrated abnormality of the visualized soft tissue structures of the upper abdomen. RAD/Chest 1 View (Portable) IMPRESSION: No acute abnormality is seen. Electronically Signed: Ben Weinstein, at 15:28 EDT , Service support ,
[2020-04-03 14:52] LABS: Anion Gap 7 (5-15); BUN 8 mg/dL (7-18); Chloride 113 mmol/L (98-107); EST Glomerular Filtration Rate 88 mL/min (>60); Est Glom Filt Rate - Afr Amer 107 mL/min (>60); Estimated Creatinine Clearance 79.85 ml/min; Glucose 90 mg/dL (74-106); Potassium 3.5 mmol/L (3.5-5.1); Sodium Level 141 mmol/L (136-145)
[2020-04-03 15:32] VITALS: BP 135/110; PULSE 65; RESP 15
[2020-04-03 15:45] VITALS: BP 136/65; PULSE 59; RESP 16; O2SAT 100
[2020-04-03 17:05] VITALS: BP 130/95; PULSE 64; RESP 18; O2SAT 98
== END 2020-04-03 17:05 | disposition home or self-care (01) ==
PROVIDERS: Emergency Provider Emergency Medicine; PCP Nurse Practitioner
DX: I10 Essential (primary) hypertension (principal); R07.89 Other chest pain
CPT/HCPCS: 71045; 80048; 84484; 84703; 85025; 93005; 99281; A4216

== ENCOUNTER 2020-04-10 09:00 | Outpatient (RCR) | payer OTHER, SELFPAY ==
--- NOTE | 2020-04-10 07:58 | BH.IGGP_ITS ---
Aftercare Plan - Demographics Treatment End Date:: 04/10/20 Psychiatrist:: Kari Tsang Psychiatrist Office #:: [id number] [facility]/IOP Therapist:: Kavya Harris Therapist Phone #:: [phone] - Medications Home Medications: Home Medications Albuterol IH (ProAir) [Proair Hfa] 1 - 2 puff INHALATION Q6H PRN PRN 11/18/18 Cholecalciferol (Vitamin D3) [Vitamin D3] 5,000 unit PO DAILY 11/18/18 Duloxetine HCl 60 mg PO DAILY 11/18/18 Flaxseed Oil [Flax Oil] 1,000 mg PO DAILY 11/18/18 Levothyroxine Sodium 125 mcg PO DAILY 11/18/18 Liothyronine Sodium 5 mcg PO DAILY 11/18/18 Lorazepam [Ativan] 0.5 mg PO BID PRN PRN 11/18/18 Omeprazole 40 mg PO DAILY 11/18/18 mesalamine 1,000 mg rectal suppository 1 g RC .3xweek ea 04/18/19 topiramate 25 mg capsule,extended release 24 hr 200 mg PO BID cap 10/19/19 Escitalopram Oxalate [Lexapro] 5 mg PO DAILY 02/22/20 busPIRone [Buspar] 5 mg PO DAILY 02/22/20 fludrocortisone 0.1 mg tablet 0.2 mg PO DAILY #180 tab 03/13/20 Losartan Potassium [Cozaar] 25 mg PO DAILY 04/03/20 atenolol 25 mg tablet 50 mg PO BID 04/09/20 melatonin 3 mg capsule 3 mg PO HS PRN 04/09/20 methylphenidate HCl 36 mg tablet,extended release 24 hr 36 mg PO DAILY 04/09/20 - Plan Details Progress/Aftercare Plan Details:: Sandi has made significant progress since starting IOP as shown by her improved mood, increased confidence in her skills, and increased ability to cope with life stressors. When Sandi started IOP she was experiencing significant anxiety and depression as well as daily panic attacks. Sandi was struggling with depressive thoughts, was hopeless, and felt worthless. Now, Sandi can catch and challenge distortions that reinforced anxiety and hopelessness, use healthy coping skills more easily, and she feels more confident in her abilities. Sandi self-reports progress in the following areas: learning and applying self-compassion, consistent use of thought challenging and reframing, recognition of her strengths, reduced panic, and consistent use of self-care. Sandi was highly active in both group and individual therapy sessions. Sandi contributed to group discussions, offered emotional support to peers, and consistently followed through with her goals. In individual sessions, Sandi was receptive to feedback, consistent with homework, and willing to push herself out of her comfort zone to make changes. Sandi?s high motivation, willingness to be uncomfortable, and positive personality were likely the reason for her significant progress. Sandi plans to attend [facility] aftercare group which starts for Sandi on 04/12/20. Sandi also plans to follow up with her outpatient psychiatrist and therapist for ongoing mental health services. Strategies for Success:: 1. Thoughts are thoughts NOT facts! Emotions are emotions NOT facts! 2. Self-care! Try to do at least one thing for self-care each day. You've been truly crushing this! 3. Continue to reach out to support and be assertive about your needs. This includes advocating for yourself with different providers. 4. Reframe those negative thoughts! Separate yourself from anxious or depressive thoughts and reframe them. 5. Self-compassion and self- care. Yes, I put self-care on here twice! 6. Opposite action! This can help when you are feeling depressed and it can also help with avoiding safety behaviors. 7. Give yourself credit and focus on wins/strengths. 8. Positive self-talk and affirmations. - Appointments Appointments/Referrals to Other Services:: 1. [facility] aftercare 04/12/20 from 2:00pm-3:30 2. Follow up with Kari next appointment 04/16/20. 3. Follow up with your outpatient psychiatrist and medical doctors. 4. Reschedule couple's counseling at [facility].
--- NOTE | 2020-04-10 15:58 | BH.COMM ---
Communication Note - Communication with Client Communication Note: Client was scheduled to discharge on 04/10/20 but client called the morning of 04/10/20 in crisis due to getting bad news from her doctor. Client requested to meet with IOP therapist individually today and discharge Thursday04/13/20.
--- NOTE | 2020-04-10 15:59 | BH.MDN ---
Multi-Disciplinary Note - Note 30-min Individual Time Started:: 11:30 Date: 04/10/20 Purpose of session/treatment goals addressed:: The purpose of this session was to address client's current mood and negative thoughts triggered by recent results from client's doctor. Symptoms/Behavior:: This counseling session was provided via telehealth using two-way, real-time interactive telecommunication technology between the patient and the clinician. The interactive telecommunication technology included audio and video. The patient was offered telehealth as an option for care delivery during the COVID-19 pandemic and consented to this option. Patient location: [place]. Provider located at [facility] Eye Contact:: Good Motor Activity:: Appropriate Appearance:: Casual Speech:: Rambling, Rapid Mood:: Anxious, Dysthymic Affect:: Congruent - tearful Thoughts:: Racing, No evidence of hallucinations/delusions noted Staff Interventions:: Therapist used active listening and open-ended questions to explore client's current stressor and crisis triggers. Therapist used grounding techniques to help client reduce anxiety in the moment. Therapist gently challenged client's distorted thought patterns and encouraged client to practice reframing. Therapist encouraged client to practice self-care today. Client Response:: Client entered session anxious and tearful. Client received upsetting news from her doctor. Client stated there is a chance client has a rare medical condition which would impact client's lifespan. Client's anxiety has led to catastrophizing thinking. After practicing some grounding skills, client was able to reframe and challenge thinking. Client used cognitive restructuring and recognized strengths client has to help client make it through challenging times. Client set a goal to do some easy yoga, caridad, and take a nap today for self-care. Client still feels ready to discharge this weekend and recognizes she has made progress despite this setback. Risks/Concerns:: Client denies any suicidal ideations, plan, or intent as of 04/10/20. Client report having what's the point of living thoughts today. Client remains hopeful despite getting distressing news from the doctor and client is future oriented. Progress Toward Goals/Plan:: Client presents with increased anxiety and depressive symptoms today due to getting results from her doctor about having a potential rare medical condition. After decompressing, client was able to calm down and think more rationally. Client will discharge from IOP later this week as client has made significant progress since admission. Time Stopped:: 11:59
--- NOTE | 2020-04-13 09:05 | BH.SGPN.GN ---
Behaviors/Verbalizations/Mental Status: []Client alert and oriented, casual dress, hygiene tended to. Eye contact good. Motor activity appropriate. Speech within normal limits.Affect congruent, mood anxious and euthymic. Thoughts linear, logical, no signs of hallucinations or delusions. Reviewed client?s symptom tracker, pt denies current suicidal thoughts or intention to date. Client Response/Progress/Benefit: []Patient responded well to session as evidenced by listening to others, providing feedback, and sharing thoughts and feelings. Patient stated her emotion today as ?excited and better than yesterday?. Patient explained it is her last day in IOP tx and she has been able to reflect on positive areas of progress despite experiencing a significant stressor earlier in the week. Noted receiving difficult medical news that in the past would have led to crisis but instead she has been able to reframe her thoughts and focus on a more realistic way of looking at the situation. Discussed feeling more confident and capable of managing mental health sx since beginning the IOP program. Identified progress made throughout tx as improved use of supports, increased ability to challenge negative thoughts, and improved stress management skills. Noted plans to complete the aftercare program and continue outpatient counseling for continued support. Patient seem to benefit from expressing thoughts and feelings, as well as reflecting upon progress to others. Given progress made, patient to discharge from IOP and begin aftercare tx next week to maintain consistent application of skills, continue to work on anxiety management, and prevent decompensation. Narrative Note: []
--- NOTE | 2020-04-13 10:18 | BH.SGPN.GN ---
This psychotherapy group was provided via telehealth using two-way, real-time interactive telecommunication technology between the patients and the provider.?The interactive telecommunication technology included audio and video.? ?The patient was offered telemedicine as an option for care delivery during the COVID-19 pandemic and consented to this option. ?Patient location: [place] ?Provider located at [facility] Behaviors/Verbalizations/Mental Status: []Client alert and oriented, neatly dressed and groomed. Eye contact good. Motor activity appropriate. Speech within normal limits. Affect congruent, mood euthymic. Thoughts linear, logical, no signs of hallucinations or delusions. Client Response/Progress/Benefit: []Client active participant as shown by active listening and contributing to discussion. Client contributed to the discussion of self-care and the consequences of not practicing self-care. Client agreed with peers that it is important to practice self-care, but they all struggle with through. Client helped the group discuss consequences of not practicing self-care such as: poor physical health, poor work performance, and poor emotional regulation. Client gave personal example of how client used to put work and others first, but this caused serious harm to client?s wellbeing. Client participated in the discussion of the common myths about self-care. Client participated in the discussion on debunking of these myths. Client?s group challenged the myths that self-care means a person is weak and self-care in unnecessary. Client seemed to benefit from increased awareness of the importance of self-care and challenging common myths that prevent practicing self-care. Client has made significant progress while in IOP and will discharge from the program today. Narrative Note: []
--- NOTE | 2020-04-13 11:20 | BH.SGPN.GN ---
This psychotherapy group was provided via telehealth using two-way, real-time interactive telecommunication technology between the patients and the provider. The interactive telecommunication technology included audio and video. The patient was offered telemedicine as an option for care delivery during the COVID-19 pandemic and consented to this option. Patient location: [place] Provider located at [facility] Behaviors/Verbalizations/Mental Status: [] Client alert and oriented, casually dressed, hygiene appeared to be tended to. Eye contact good. Motor activity appropriate. Speech within normal limits. Affect congruent, mood euthymic. Thoughts linear, logical, no signs of hallucinations or delusions. Client Response/Progress/Benefit: []Client active participant AEB client providing input during discussions and listened attentively to peers. Participated in some group discussion on the various areas of self-care, benefits, and types of self-care activities for each area. Client completed worksheet in which she identified current self-care practices and what self-care activities she wants to start using. Client reported she will focus on improving her social self-care because she has not put forth effort to stay connected with family during COVID. Client reported she will work on this self-care area by sending a Zoom invite to her family members today to increase connection with family. Progress noted as client has been able to challenges her thought patterns and improve emotional relation. Client has made significant progress since starting IOP and will discharge today.
--- NOTE | 2020-04-13 15:51 | BH.DS_ITS ---
Discharge Summary - Demographics Date of Admission:: 02/21/20 Discharge Date: 04/13/20 Presenting Problems at Admission:: Client is a 34-year-old female with a history of ADHD, MDD, and BHUPENDRA. Prior to IOP admission, client was recently discharged from [facility] following a suicide attempt via overdose. Client?s outpatient therapist recommended IOP tx. At admission, client reported numerous psychosocial stressors including financial loss, losing job, health i ssues, loss of license, and decreased mobility. At admission, client endorsed a depressed mood, crying spells, anhedonia, feeling like a burden, low energy, isolative behaviors, low self-worth, and passive wishes of . Denied any active suicidal ideations since discharge from [facility], but shared she still sometimes has thoughts that she wishes she would have succeeded in killing herself. Client also endorsed anxiety daily with history of panic attacks. Client?s symptoms were interfering with client's ability to function. Discharge Diagnoses:: Major depressive disorder, recurrent, severe without psychosis; generalized anxiety disorder; Rule out dependent personality traits. Reason for Discharge:: Client has made significant progress towards her treatment goals AEB her reduction in DSM-5 symptom scores, self-report of increased ability to challenge distortions, and consistent use of healthy coping skills. Client no longer meets criteria for IOP level of care and will transition to outpatient counseling and IOP aftercare. - Treatment Progress During Treatment & Response: Client responded well to treatment and demonstrated progress towards her treatment goals AEB reduction in DSM-5 scores and high engagement in group and individual sessions. Client?s overall DSM-5 scores decreased by 48% since admission with depression decreasing by 80%, suicidal ideations decreasing by 100%, and anxiety decreasing by 60%. Client reported consistently using healthy coping skills including deep breathing, positive self-talk, self-care, affirmations, assertive communication, and thought challenging. Client had a setback the week of discharge due to troublesome results from her doctors, but client has been coping well with the news since Thursday. Client was an active group member who often gave insight to discussion, feedback to peers, and connected the topics to her daily life. Client was highly engaged in her individual sessions and consistent with homework and skill utilization outside of group. Client brought her in twice for family sessions which helped client and her communicate better and cope with emotions in healthier ways. Client's consistent application of skills and positive mindset were likely the reason for her reduction in symptoms and improved mood. Client is established with aftercare and would like to join the [facility] aftercare group when she discharges. Issues Still to be Addressed:: Client can continue to benefit from outpatient counseling and aftercare at [facility] to reinforce healthy coping skills and maintain progress. Client can also continue working on further improving assertive communication, self-care, and use of thought challenging. Lastly, client would like to further improve self-compassion and combating negative core beliefs. Discharge Recommendations/Instructions:: Client is recommended to follow up with her outpatient providers for continuity of care. Client sees Dr. Tavares for medication management and Kari Kline at [facility] for outpatient therapy. Client has an appointment with Kari on 04/16/20. Client and her plan to start couple?s counseling at [facility] this month. Lastly, client will be participating in [facility] aftercare which begins on 04/19/20 for client. Discharge Handout: Complete Discharge Handout with client on aftercare options and continuity of care.
== END 2020-04-13 14:00 | disposition home or self-care (01) ==
LOC: BHIOP 09:00
PROVIDERS: PCP Nurse Practitioner; Referring Provider Psychiatry & Neurology Psychiatry; Visit Provider Psychiatry & Neurology Psychiatry
DX: F33.2 Major depressive disorder, recurrent severe without psychotic features (principal); F41.8 Other specified anxiety disorders; K51.90 Ulcerative colitis, unspecified, without complications; R55 Syncope and collapse; G43.909 Migraine, unspecified, not intractable, without status migrainosus; E66.9 Obesity, unspecified; F98.8 Other specified behavioral and emotional disorders with onset usually occurring in childhood and adolescence; E06.3 Autoimmune thyroiditis; I10 Essential (primary) hypertension; K21.9 Gastro-esophageal reflux disease without esophagitis; Z62.810 Personal history of physical and sexual abuse in childhood; Z62.811 Personal history of psychological abuse in childhood; Z91.5 Personal history of self-harm; Z79.899 Other long term (current) drug therapy; Z81.8 Family history of other mental and behavioral disorders
CPT/HCPCS: H0035; 90832; 90853

== ENCOUNTER 2020-04-19 14:00 | Outpatient (RCR) | payer OTHER, SELFPAY ==
[2020-04-09 08:39] VITALS: BMI 43.3
--- NOTE | 2020-04-20 11:45 | BH.MTP ---
Master Treatment Plan - Patient Information Program Physician:: Dr. Kari Tsang Primary Therapist:: Kavya Harris - Psychiatric Diagnoses Psychiatric Diagnoses:: Major depressive disorder, recurrent, severe without psychosis; generalized anxiety disorder Diagnosis Code(s):: F 33.2 - Estimated LOS Estimated LOS (in weeks):: 12 Problem/Goal #1 - Problem/Goal #1 Stated Goal:: Client will maintain or see a reduction in symptoms AEB client score on the DSM 5 cross-cutting measure and improve client's daily functioning. - Objectives Objective #1 Stated Objective: Client will continue to consistently apply healthy coping skills to maintain progress made in IOP tx. Interventions: Through group therapy, client will review warning signs and triggers as well as healthy coping skills learned in IOP tx to successfully maintain gains while transitioning into outpatient therapy. Discharge Criteria: Client will have accomplished this goal when client's score on the DSM-5 cross-cutting measure has either maintained or reduced over a 12 week period. Target Date: 07/12/20 Review Date: 05/17/20 Objective #2 Stated Objective: Client will learn and utilize 2-3 maintenance strategies to prevent decompensation. Interventions: Through group therapy, client will be provided with education on healthy maintenance behaviors, relapse prevention techniques, and healthy coping strategies. Discharge Criteria: Client will have accomplished this goal when can report using at least 2 maintenance skills to prevent decompensation. Target Date: 07/12/20 Review Date: 05/17/20
== END 2020-05-07 23:59 ==
LOC: BHOG 14:00
PROVIDERS: PCP Nurse Practitioner; Referring Provider Psychiatry & Neurology Psychiatry; Visit Provider Psychiatry & Neurology Psychiatry
DX: F33.2 Major depressive disorder, recurrent severe without psychotic features (principal); F41.1 Generalized anxiety disorder
CPT/HCPCS: 90853

== ENCOUNTER → 2020-05-04 13:55 | Outpatient (CLI) | payer OTHER, SELFPAY ==
[2020-04-23 11:15] VITALS: BMI 43.3
--- NOTE | 2020-05-04 13:57 | CT_ITS ---
STUDY: CT CHEST WITH CONTRAST REASON FOR EXAM: Female, 34 years old. Shortness of breath RADIATION DOSAGE (If Supplied By Facility): CTDIvol = ( 17.11 ) mGy, DLP = ( 597.51 ) mGycm TECHNIQUE: Transaxial imaging was performed following intravenous administration of IV 100mL Isovue-300. Individualized dose optimization techniques were used for this CT. COMPARISON: 03 April 2020 FINDINGS: Lungs are clear. Pleural surfaces are intact. Central airways are patent. Mediastinal contents are normal. Cardiac changes are normal in size and shape. Pericardium is normal. Aorta and pulmonary artery are unremarkable. Osseous structures are intact with thoracic scoliosis. BMI severely elevated. CT/Chest WITH Contrast IMPRESSION: Normal chest. Electronically Signed: Lex Richter, at 16:58 EST Tel , Service support ,
== END ==
PROVIDERS: PCP Nurse Practitioner; Referring Provider Nurse Practitioner Family; Visit Provider Nurse Practitioner Family
DX: R06.02 Shortness of breath (principal); R42 Dizziness and giddiness
CPT/HCPCS: 71260; Q9967

== ENCOUNTER → 2020-05-17 15:18 | Outpatient (CLI) | payer OTHER, SELFPAY ==
[2020-05-17 14:18] VITALS: BMI 43.1
[2020-05-17 17:53] LABS: T4 Free Direct 0.92 ng/dL (0.76-1.46); Thyroid Stim Hormone (TSH) 2.42 uIU/mL (0.358-3.74)
== END ==
PROVIDERS: PCP Nurse Practitioner; Referring Provider Internal Medicine Endocrinology, Diabetes & Metabolism; Visit Provider Internal Medicine Endocrinology, Diabetes & Metabolism
DX: E03.8 Other specified hypothyroidism (principal); R55 Syncope and collapse; E06.3 Autoimmune thyroiditis
CPT/HCPCS: 36415; 82533; 84439; 84443; 84481

== ENCOUNTER → 2020-05-18 10:40 | Outpatient (CLI) | payer OTHER, SELFPAY ==
[2020-04-23 11:15] VITALS: BMI 43.3
[2020-05-17 14:18] VITALS: BMI 43.1
== END ==
PROVIDERS: PCP Nurse Practitioner; Referring Provider Otolaryngology; Visit Provider Otolaryngology
DX: Z11.59 Encounter for screening for other viral diseases (principal)
CPT/HCPCS: 87635; C9803; U0003

== ENCOUNTER 2020-06-07 14:00 | Outpatient (RCR) | payer OTHER, SELFPAY ==
[2020-04-23 11:15] VITALS: BMI 43.3
--- NOTE | 2020-06-07 14:07 | BH.TPR ---
Treatment Plan Review Date of Admission:: 04/19/20 Date of Treatment Plan Review:: 06/07/20 Admitting Diagnoses:: Major depressive disorder, recurrent, severe without psychosis; generalized anxiety disorder; Rule out dependent personality traits. Current Diagnoses:: Major depressive disorder, recurrent, severe without psychosis; generalized anxiety disorder; Rule out dependent personality traits. Patient's Response to Treatment:: Pt has not had consistent attendance due to her medical appointments and issues with her physical health. When pt attends she provides positive contributions to group environment. Pt listens attentively to peers, providing support and feedback. Pt responds well to treatment however the barrier to treatment is her inconsistent attendance and current medication concerns. Status of Current Problems and Symptoms: Pt missed most of the aftercare sessions this month due to appointments or medical issues. Pt also reported issues with her medications and her PCP called to inform IOP staff that pt was reporting hallucinations, irritability, and panic attacks. This is a change since IOP staff has last seen pt. Additional ongoing stressors include effects of COVID-19 pandemic, medical issues, interpersonal relationship issues, and financial stress. Problem #1 Problem Name:: Pt will maintain or see a reduction in mental health symptoms Status of Goals:: Obj 1. The DSM 5 cross cutting measure was not completed, so the goal is not met goal. Pt had been reporting variable mood stability due to external stressors and ongoing medical issues. It is likely that pt?s symptoms worsened AEB the report from her PCP regarding emotional dysregulation and increased anxiety. Ojb 2. Despite stressors, pt continues to report use of using self-care, thought challenging, and positive self-talk to manage mood. Team Recommendations:: Team recommends discussing with pt if she is able to attend on a more consistent basis. Pt could benefit from aftercare but she will not gain as much if she cannot attend on a weekly basis. Pt has also been encouraged to discuss medication concerns and changes with her outpatient providers.
--- NOTE | 2020-06-14 14:00 | BH.SGPN.GN ---
This psychotherapy group was provided via telehealth using two-way, real-time interactive telecommunication technology between the patients and the provider.?The interactive telecommunication technology included audio and video.? ?The patient was offered telemedicine as an option for care delivery during the COVID-19 pandemic and consented to this option. ?Patient location: [place] ?Provider located at [facility] Behaviors/Verbalizations/Mental Status: []Client alert and oriented, neatly dressed and groomed. Eye contact good. Motor activity appropriate. Speech within normal limits. Affect congruent, mood euthymic. Thoughts linear, logical, no signs of hallucinations or delusions. Client Response/Progress/Benefit: []Client responded well to session, actively contributing. Client shared she is feeling much better this week as her medication changes have become more stable and ?I?m starting to feel like my old self again.? Client has been using positive self-talk and self-love to cope with symptoms and stressors this week. Client contributed to the discussion on gratitude and its benefits. Client attentive during discussion of internal vs. external gratitude. Client receptive to participating in the group seven-day gratitude challenge. Client selected one gratitude reflection per day and stated she will implement this through verbalizing them each more with her daily affirmations. Receptive to discussion on intentionality and self-accountability. Appeared to benefit from connecting with peers and practicing gratitude. Will continue IOP tx promote mood stability and reinforce healthy coping skills. Narrative Note: []
== END 2020-06-07 23:59 ==
LOC: BHOG 14:00
PROVIDERS: PCP Nurse Practitioner; Referring Provider Psychiatry & Neurology Psychiatry; Visit Provider Psychiatry & Neurology Psychiatry
DX: F33.2 Major depressive disorder, recurrent severe without psychotic features (principal); F41.1 Generalized anxiety disorder
CPT/HCPCS: 90853

== ENCOUNTER 2020-06-14 14:00 | Outpatient (RCR) | payer OTHER, SELFPAY ==
[2020-05-17 14:18] VITALS: BMI 43.1
--- NOTE | 2020-06-21 14:00 | BH.SGPN.GN ---
This psychotherapy group was provided via telehealth using two-way, real-time interactive telecommunication technology between the patients and the provider.?The interactive telecommunication technology included audio and video.? ?The patient was offered telemedicine as an option for care delivery during the COVID-19 pandemic and consented to this option. ?Patient location: [place] ?Provider located at [facility] Behaviors/Verbalizations/Mental Status: []Client alert and oriented, casual appearance. Eye contact fair. Motor activity appropriate. Speech within normal limits. Affect congruent. Mood anxious and dysthymic. Thoughts linear, logical, no signs of hallucinations or delusions. Client Response/Progress/Benefit: []Pt engaged in session as evidenced by pt openly sharing thoughts and feelings, listening attentively to others, and providing input throughout. Pt reported she is excited her room has officially moved to the first floor because she now will be able to do more physically since there are no stairs. Pt stated currently stressed because found e-mails from her mom that were saying negative things about pt. Pt reported feeling unsure of how to address the situation. Pt engaged in discussion about benefits of self-care. Pt stated for her self-care plan for the week she will engage in: taking a short nap, making a task list, daily positive affirmations, exercise, and eat healthy. Pt seemed to benefit from creating a self-care plan to increase consistent use of self-care. Progress noted with pt reporting use of social supports when faced with a stressor. Pt to continue aftercare group to continue use of healthy coping and prevent decompensation. Narrative Note: []
--- NOTE | 2020-06-28 14:00 | BH.SGPN.GN ---
This psychotherapy group was provided via telehealth using two-way, real-time interactive telecommunication technology between the patients and the provider.?The interactive telecommunication technology included audio and video.? ?The patient was offered telemedicine as an option for care delivery during the COVID-19 pandemic and consented to this option. ?Patient location: [place] ?Provider located at [facility] Behaviors/Verbalizations/Mental Status: []Client alert and oriented, neatly dressed and groomed. Eye contact good. Motor activity appropriate. Speech within normal limits. Affect congruent to mood-tearful, mood dysthymic. Thoughts linear, logical, no signs of hallucinations or delusions. Client Response/Progress/Benefit: []Client responded well to session, provided input, and listened attentively to peers. Client was tearful during her check-in as client shared one of her cousins in a car accident. Receptive to group support. Client shared that prior to her cousin passing away, client had a good week. Client stated the downstairs of her home is finished and client has been using coping skills. Client engaged in discussion on self-advocacy. Worked with group to identify the benefits of self-advocacy, as well as common barriers. Reviewed the personal bill of rights and shared belief that she has the right to express her feelings-positive and negative. Worked with group to identify strategies to increase ability to advocate for oneself. Reported she wants to work on advocating for herself by reminding herself that she does not need to give excused for her behavior. Client seemed to benefit from reviewing treatment progress and skill application, as well as learning about how to increase self-advocacy. Client will discharge from [facility] aftercare as she has maintained progress and can transition to outpatient therapy. Narrative Note: []
--- NOTE | 2020-06-28 15:55 | BH.DS ---
Discharge Summary - Demographics Date of Admission:: 04/19/20 Discharge Date: 06/28/20 Presenting Problems at Admission:: Client discharged from IOP tx and transitioned to IOP aftercare to maintain gains client made in IOP and to reinforce healthy coping skills. At admission to IOP aftercare, client reported experiencing slight symptoms of anxiety and depression. Client was also experiencing life stressors including effects of COVID-19 pandemic, medical issues, interpersonal relationship issues, and financial stress. Client also continued to experience negative thinking patterns and some medication issues. Despite these stressors, client reported ability to cope with her mental health and was activity using healthy skills. Discharge Diagnoses:: Major depressive disorder, recurrent, severe without psychosis; generalized anxiety disorder; Rule out dependent personality traits. Reason for Discharge:: Client has accomplished her tx goals AEB her ability to maintain mood stability and gains made in IOP. Client will transition to traditional outpatient counseling. - Treatment Progress During Treatment & Response: Client was engaged in IOP aftercare as evidenced by client's participation in group discussions and self-report of consistently applying coping skills. Client's DSM-5 scores for depression increased slightly since admission due to a recent stressor of losing her cousin in a car accident. Client?s anxiety decreased by 50% since admission. Additionally, client was reporting an improved mood, more positive thinking patterns, consistent use of healthy coping skills, self-advocacy, and medication changes that were benefitting client. Issues Still to be Addressed:: Client recently found out one of her cousins in a car accident and client is grieving. Client can benefit from ongoing therapy to process her emotions and reinforce healthy coping skills. Client can also benefit from continuing to work on challenging negative thought patterns, practicing self-care, and communicating assertively. Additionally, client's medical concerns and medications were an ongoing stressor in aftercare. Discharge Recommendations/Instructions:: Client is encouraged to follow up with her outpatient providers at [facility], Kari Kline (therapist) and Dr. Goodwin (psychiatrist). Client is also encouraged to follow up with her medical team to monitor client's medical issues. Discharge Handout: Complete Discharge Handout with client on aftercare options and continuity of care.
== END 2020-06-28 16:00 | disposition home or self-care (01) ==
LOC: BHOG 14:00
PROVIDERS: PCP Nurse Practitioner; Referring Provider Psychiatry & Neurology Psychiatry; Visit Provider Psychiatry & Neurology Psychiatry
DX: F33.2 Major depressive disorder, recurrent severe without psychotic features (principal); F41.1 Generalized anxiety disorder
CPT/HCPCS: 90853

== ENCOUNTER → 2020-07-23 09:54 | Outpatient (CLI) | payer BC, SELFPAY ==
[2020-07-23 09:53] VITALS: BMI 43.3
[2020-07-23 12:22] LABS: Vitamin B12 1857 pg/mL (211-911)
[2020-07-23 12:29] LABS: T4 Free Direct 1.07 ng/dL (0.76-1.46); Thyroid Stim Hormone (TSH) 4.69 uIU/mL (0.358-3.74)
== END ==
PROVIDERS: Nurse Practitioner Family; PCP Nurse Practitioner; Referring Provider Internal Medicine Endocrinology, Diabetes & Metabolism; Visit Provider Internal Medicine Endocrinology, Diabetes & Metabolism
DX: E03.9 Hypothyroidism, unspecified (principal); R41.3 Other amnesia
CPT/HCPCS: 36415; 82607; 84439; 84443

== ENCOUNTER → 2020-07-27 06:06 | Outpatient (CLI) | payer BC, SELFPAY ==
[2020-05-17 14:18] VITALS: BMI 43.1
[2020-07-23 09:53] VITALS: BMI 43.3
--- NOTE | 2020-07-27 07:24 | TELEMED_ITS ---
[facility] Tele[facility] has confirmed receipt of a request for visit. This document confirms receipt of the order initiating the consult. To find the results of the consultation, please view the patient's reports for the scanned Telemed Consult.
== END ==
PROVIDERS: PCP Internal Medicine; Referring Provider Nurse Practitioner Family; Visit Provider Nurse Practitioner Family
DX: R55 Syncope and collapse (principal)
CPT/HCPCS: 95819

== ENCOUNTER → 2020-08-06 16:00 | Outpatient (CLI) | payer BC, SELFPAY ==
[2020-07-23 09:53] VITALS: BMI 43.3
== END ==
PROVIDERS: PCP Nurse Practitioner
DX: Z01.818 Encounter for other preprocedural examination (principal)
CPT/HCPCS: 87635; C9803; U0005; U0003

== ENCOUNTER → 2020-09-03 10:25 | Outpatient (CLI) | payer BC, SELFPAY ==
[2020-08-29 13:45] VITALS: BMI 41.8
[2020-09-03 12:51] LABS: T4 Free Direct 1.33 ng/dL (0.76-1.46)
== END ==
PROVIDERS: PCP Nurse Practitioner; Visit Provider Internal Medicine Endocrinology, Diabetes & Metabolism
DX: E06.3 Autoimmune thyroiditis (principal)
CPT/HCPCS: 36415; 84439; 84443

== ENCOUNTER → 2020-09-04 07:38 | Outpatient (CLI) | payer BC, SELFPAY ==
[2020-08-29 13:45] VITALS: BMI 41.8
== END ==
LOC: LAB 07:40 → LABSPEC 07:43
PROVIDERS: PCP Internal Medicine
DX: L50.8 Other urticaria (principal)
CPT/HCPCS: 81050

== ENCOUNTER → 2020-10-08 13:04 | Outpatient (CLI) | payer BC, SELFPAY ==
[2020-04-09 08:39] VITALS: BMI 43.3
[2020-08-29 13:45] VITALS: BMI 41.8
--- NOTE | 2020-10-11 09:19 | PFTCOMP ---
INTRODUCTION: The patient is a 35-year-old female that presents for pulmonary function studies secondary to a diagnosis of obstructive sleep apnea. Respiratory therapy reports good patient effort. Bronchodilators were used during testing. INTERPRETATION: Forced expiration spirometry demonstrates no evidence of a large airways obstructive ventilatory defect. There was no significant response to aerosolized bronchodilators. Spirograms are of good quality and plateau normally. The respiratory flow volume loop is normal. Body plethysmography was performed and reveals lung volumes to be within normal limits. Diffusing capacity by single breath CO is also within normal limits. IMPRESSION: Grossly normal pulmonary function studies.
== END ==
LOC: PSN 13:05
PROVIDERS: PCP Internal Medicine; Referring Provider Internal Medicine Critical Care Medicine; Visit Provider Internal Medicine Critical Care Medicine
DX: G47.33 Obstructive sleep apnea (adult) (pediatric) (principal)
CPT/HCPCS: 94060; 94726; 94729

== ENCOUNTER → 2020-10-17 14:02 | Outpatient (CLI) | payer BC, SELFPAY ==
[2020-10-17 15:04] LABS: Hematocrit 43.8 % (37-47); Hemoglobin 14.3 g/dL (12.0-15.0); Mean Corp Hgb Conc 32.6 g/dL (32-36); Mean Corpuscular Hgb 29.6 pg (27.0-32.0); Mean Corpuscular Volume 90.7 fL (81-99); Mean Platelet Vol. 9.9 fl (6.2-12.0); Platelet Count 309 K/mm3 (150-450); RBC Distribution Width CV 12.7 % (11.6-14.6); RBC Distribution Width SD 41.2 fl (35.1-43.9); Red Blood Count 4.83 M/mm3 (4.2-5.4)
[2020-10-17 16:18] LABS: Iron 72 ug/dL (50-170)
[2020-10-19 16:08] LABS: Endomysial Antibody IgA Negative (Negative)
[2020-10-19 19:41] LABS: Immunoglobulin A 147 mg/dL (87-352); t-Transglutaminase IgA <2 U/mL (0-3)
== END ==
PROVIDERS: PCP Internal Medicine; Referring Provider Internal Medicine Gastroenterology; Visit Provider Internal Medicine Gastroenterology
DX: K62.5 Hemorrhage of anus and rectum (principal)
CPT/HCPCS: 36415; 82784; 83516; 83540; 85027; 86140; 86255

== ENCOUNTER 2020-11-16 10:00 | Outpatient (RCR) | payer BC, SELFPAY ==
[2020-08-29 13:45] VITALS: BMI 41.8
--- NOTE | 2020-09-05 14:01 | HP.PTEVAL_ITS ---
Patient's Visit Information BEBE ALVA is a 35 year old F referred to Physical Therapy by Sakina Lundberg NP-C with a diagnosis of Weakness, other fatigue, hypersomnia. Date of Evaluation: 09/05/20 Physical Therapist: Renard Mcgee, PT, ATC - Visit Plan Frequency: 2x /Week Duration: 4 Weeks Plan: Strengthening of LE and UE; nustep; Kinesis machine, sit to stand, step ups; use of gait belt during all sessions - Subjective Pt. is a 35 y.o. female. She stated that she has been having issues with fatigue and is only awake 5-6 hours a day and is becoming weaker throughout the day. She has a dx of POTS where she is taking medications. She is being medically managed for that with multiple medications, compressions stockings and has a special diet. She states she might have pulmonary HTN and will be seeing a specialist. Physicans are unsure of why she is so fatigued. SHe notes that when she has a flair up of ulcerative colitis she feels more fatigued and weak. She is anemic and has a B12 deficiency which is being medically managed. States that the weakness and incrased fatigue began in late January/ Feb. Uses a rollader walker for shorter trips and anything further she uses a manual WC. She wakes up at 5am every day with her and then she finds herself falling asleep throughout the day. Some days she can ambulate around her home without her walker. She has a 2 story house and recently moved into the bedroom downstairs. She has 4 stairs into/out of the house with a railing. Weakness is all over but feel that her LE are most affected. Low stamina, she doesnt know when legs will give out from under her and increased difficulty with her ADL's (showering 1 week with assistance from ). Goals: She hopes to be where she only needs the walker and doesnt have to rely on the wheelchair. She also n otes an increased swelling in her LE. ALong with her POTS Dx, she faints frequently and states that it occurs about twice a day standing or sitting. - Objective Neuro: R sided increased senasativity to sensation in C5, C6, L2, L4 dermatomes. patellar tendon reflex: R sided 1/3; L side 2/3. bicep reflex: WNL bilaterally. ROM: UE WNL; LE WNL. MMT: R shoulder flex: 4-/5; L shoulder flex: 5/5. R/L shoulder ABD 5/5. R/L shoulder IR: 5/5. R/L shoulder ER: 4-/5 bilat. R/L seated hip flexion: 4-/5. R knee Flex: 3+/5; L knee flex: 3+/5. R knee ext: 3+/5; L knee ext 3+/5. Hip ADD/ ABD: 5/5. Ambulated approx. 100 ft. - Goals Goal 1:: Increase LE weakness by 1 grade to aid with ambulation. Goal Time Frame: 4-6 Weeks Goal 2:: Increase LE weakness by 1 grade to only use walker as AD. Goal Time Frame: 4-6 Weeks Goal 3:: Increase endurance to be able to ambulate more than 100 feet. Goal Time Frame: 4-6 Weeks - Rehabilitation Potential Physical Therapy Diagnosis: Generalized weakness of the UE and LE; decreased endurance and stamina Rehabilitation Potential: Good - Anticipated Interventions Patient/Client Instruction: Educate patient on: Condition, Plan of Care For the Purpose of:: To improve muscle performance and motor function, To improve ability to perform ADL's, To increase tolerance to activity/condition/position, To improve endurance Therapeutic Exercise to Include: Strength training, Endurance training For the Purpose of:: To improve muscle performance and motor function, To improve ability to perform ADL's, To improve endurance Thank you for the opportunity to evaluate your patient. For Medicare and Medicare HMO plans, please review the plan of care and approve it. It will need to be FAXED BACK to us at [phone] for Medicare purposes. For Medicare only, by signing this I certify the plan of care. Please let me know if there are questions or concerns regarding this plan of care. Physician Signature: Date:
--- NOTE | 2021-03-11 15:39 | HP.PT.NRP ---
BEBE ALVA was seen in my office for initial evaluation on 09/05/20. The following Plan of Care was established for this patient: Initial Frequency: 2x /Week Initial Duration: 4 Weeks Patient/Client Instruction: Educate patient on: Condition, Plan of Care For the Purpose of:: To improve muscle performance and motor function, To improve ability to perform ADL's, To increase tolerance to activity/condition/position, To improve endurance Therapeutic Exercise to Include: Strength training, Endurance training For the Purpose of:: To improve muscle performance and motor function, To improve ability to perform ADL's, To improve endurance This patient was last seen in our office . Pertinent comments regarding their Physical therapy will appear below: Pt was treated for 7 visits for Fatigue through the date of 11/16/20. Pt has not returned through todays date and is discontinued at this time. At this point I will be discontinuing this patient from physical therapy. I would be happy to see this patient again in the future if found appropriate by the physician. Thank you! Renard Mcgee, PT, ATC Balance/Gait/Functional tests - Balance/Special Test Scores Lower Extremity Functional Score: 26
== END 2020-11-16 19:00 | disposition home or self-care (01) ==
LOC: PT 10:00
PROVIDERS: PCP Internal Medicine; Referring Provider Nurse Practitioner Family; Visit Provider Nurse Practitioner Family
DX: I49.8 Other specified cardiac arrhythmias (principal); G47.10 Hypersomnia, unspecified; R53.1 Weakness; R53.83 Other fatigue
CPT/HCPCS: 97110; 97161

== ENCOUNTER 2021-01-02 23:33 | Emergency (ER) | payer BC, SELFPAY ==
[2020-12-03 09:12] VITALS: BMI 42.7
[2021-01-02 23:34] VITALS: BP 129/91; PULSE 65; RESP 18; TEMP 36.1; O2SAT 99; BMI 44.8
--- NOTE | 2021-01-03 00:10 | CT_ITS ---
STUDY: CT ABDOMEN AND PELVIS WITH CONTRAST REASON FOR EXAM: Female, 35 years old. LUQ pain RADIATION DOSAGE (If Supplied By Facility): CTDIvol = ( 16.98 ) mGy, DLP = ( 1224.38 ) mGycm TECHNIQUE: Transaxial images were obtained from the dome of the diaphragm to the symphysis pubis without oral contrast. IV 100mL Isovue-300 was administered. Sagittal and coronal images were reconstructed. Individualized dose optimization techniques were used for this CT. COMPARISON: CT scan 12/04/2018. FINDINGS: The visualized lung bases are unremarkable. The visualized portions of the heart are within normal limits. Normal liver. Normal gallbladder and extrahepatic biliary system. There is mild splenomegaly. The spleen is slightly smaller than it was on the previous study.. Normal pancreas. Normal bilateral adrenal glands. Normal right kidney. Normal left kidney. Assessment the stomach is limited by nondistention. Normal small intestine. Normal colon. The appendix is visualized on axial images [id number] and it appears normal.. Normal abdominal aorta. Normal inferior vena cava. Normal retroperitoneum. There are hyperplastic mesenteric lymph nodes in the right lower quadrant of the abdomen, ranging up to 9 mm in short axis diameter.. Similar finding was also present on previous exam. Normal urinary bladder. Normal abdominal wall. There is S-shaped thoracolumbar scoliosis. CT/Abdomen/Pelvis W IV Cont ONLY IMPRESSION: Mild splenomegaly, which is slightly improved from the previous study. Stable mesenteric lymph node hyperplasia in the right lower quadrant of the abdomen. No evidence for acute pathology. Limited assessment of the stomach due to nondistention. Electronically Signed: Isaiah Gonzalez MD at 1:48 EDT , Service support ,
--- NOTE | 2021-01-03 00:17 | EDS_ITS ---
HPI History of Present Illness Chief Complaint: Abd Pain Informant: patient Narrative Narrative: Patient is a 35-year-old female who presents to the emergency department for left upper quadrant abdominal pain. She states this started 2 to 3 days ago. She feels like there is a lump under the area of tenderness. She is never had this before. She currently rates the pain as a 7 out of 10. She has not been take anything for this. No radiation of the pain. She denies any fevers or chills. No nausea/vomiting/diarrhea. She denies any previous abdominal surgeries. She does have a history of proctitis but does not relate her pain to this. She denies any vaginal bleeding or discharge. No urinary symptoms. She denies any chest pain or shortness of breath. Movement seem to make her symptoms worse. [facility] Medical History (Updated 01/03/21 @ 02:[address] Sunil Weinberg, ) Asthma Chronic headaches Essential hypertension Generalized anxiety disorder Adriane's disease Hypothyroidism Hypothyroidism (acquired) Major depressive disorder, recurrent severe without psychotic features Neurocardiogenic syncope Palpitations Palpitations Postural orthostatic tachycardia syndrome Premature ventricular contraction Recurrent UTI Seasonal allergies Ulcerative colitis Vasovagal syncope Home Medications cholecalciferol (vitamin D3) 5,000 unit PO DAILY 11/18/18 [History Last Taken 02/02/20] flaxseed oil 1,000 mg PO DAILY 11/18/18 [History Last Taken 02/02/20] lorazepam 0.5 mg PO BID PRN PRN 11/18/18 [History Last Taken 02/01/20] omeprazole 40 mg PO DAILY 11/18/18 [History Last Taken 02/02/20] mesalamine 1,000 mg rectal suppository 1 g RC .3xweek ea 04/18/19 [History Last Taken 02/01/20] cyanocobalamin (vitamin B-12) 2,500 mcg tablet 2,500 mcg PO DAILY 04/23/20 [History Last Taken Unknown] ferrous sulfate 325 mg (65 mg iron) tablet 325 mg PO DAILY 04/23/20 [History Last Taken Unknown] folic acid 400 mcg tablet 1 mg PO DAILY tab 04/23/20 [History Last Taken Unknown] levothyroxine 137 mcg tablet 137 mcg PO DAILY #90 tab 05/18/20 [Rx Last Taken Unknown] escitalopram oxalate 5 mg tablet 5 mg PO DAILY tablet 08/28/20 [History Last Taken Unknown] levothyroxine 137 mcg capsule 68.5 mcg PO .THURSDAY cap 08/28/20 [History Last Taken Unknown] atenolol 50 mg tablet 50 mg PO BID #60 tablet 10/01/20 [Rx Last Taken Unknown] lisdexamfetamine 20 mg capsule 20 mg PO DAILY 10/01/20 [History Last Taken Unknown] ondansetron HCl 4 mg tablet 4 mg PO Q8H PRN #30 tablet 10/01/20 [Rx Last Taken Unknown] ubrogepant 100 mg tablet 100 mg PO ONCE PRN #10 tab 10/01/20 [Rx Last Taken Unknown] midodrine 10 mg tablet 10 mg PO TID #90 tab 10/10/20 [Rx Last Taken Unknown] meloxicam 7.5 mg tablet 7.5 mg PO BID PRN #60 tab 11/27/20 [Rx Last Taken Unknown] duloxetine 60 mg capsule,delayed release 60 mg PO DAILY cap 12/03/20 [History Last Taken Unknown] magnesium citrate 125 mg capsule 125 mg PO DAILY 12/03/20 [History Last Taken U nknown] losartan 25 mg tablet 25 mg PO DAILY tab 12/13/20 [History Last Taken Unknown] Allergy/AdvReac Type Severity Reaction Status Date / Time house dust mite Allergy Severe asthma Verified 01/02/21 23:34 Family History Father CVA (cerebral vascular accident) S/P AVR (aortic valve replacement) Depression Mother Hypertension Psoriasis Depression Grandfather Myocardial infarction Cancer Brain tumor Depression CVA (cerebral vascular accident) Grandmother Arthritis Autoimmune disorder Depression Osteoporosis Aunt Autoimmune disorder Cervical cancer Colon cancer Depression Thyroid disorder Aunt Parkinsons disease Thyroid disorder Surgical History History of dental surgery Social History Smoking Status: Never smoker Electronic Cigarette Use: not used second hand exposure: No alcohol intake: former details: march 23 2016 substance use type: does not use caffeine: Yes Type: coffee Number of servings: 2 ROS ROS ED Constitutional Constitutional ED: Denies chills or fever(s) Eyes Eyes: Denies change in vision ENT ENT ED: Denies epistaxis or rhinorrhea Cardiovascular Cardiovascular: Denies chest pain or palpitations Respiratory/Chest Respiratory/Chest: Denies cough, dyspnea or dyspnea on exertion Gastrointestinal Gastrointestinal: Reports abdominal pain; Denies diarrhea, nausea or vomiting Genitourinary Genitourinary ED: Denies dysuria, hematuria or urinary frequency Musculoskeletal Musculoskeletal: Denies back pain or neck pain Integumentary Denies rash Neurologic Neurologic: Denies dizziness, headache(s) or weakness EXAM Physical Exam Const Vital Signs: 01/02/21 23:34 01/03/21 01:51 Temperature 97.0 F L Temperature Source Temporal Pulse Rate 65 60 Respiratory Rate 18 16 Blood Pressure 129/91 H 114/75 Blood Pressure Mean 103 88 Pulse Ox 99 99 Oxygen Delivery Method Room Air Room Air Positive well nourished and well developed General Appearance ED: well developed and NAD HEENT Reports normocephalic and head/scalp atraumatic Eyes PERRL and EOMs intact bilaterally Neck supple Chest Wall inspection of chest normal Resp normal respiratory effort and clear to auscultation bilaterally Auscultation: Negative for rales, rhonchi or wheezes Cardio regular rate, regular rhythm and no murmurs GI normal to inspection, nondistended, normoactive bowel sounds GI Narrative: There is tenderness at the inferior rib at the left upper quadrant region. No overlying skin changes. No mass appreciated. No crepitus. Palpation: soft; Negative for guarding or rebound tenderness present Back/Spine no CVA tenderness Extremity normal to inspection General Extremety ED: Negative for edema or tenderness General Extremity: Negative for edema Neuro oriented x3, CN's II-XII intact bilaterally and no sensory deficits noted Sensorium / Orientation: alert Motor Exam: strength 5/5 throughout Psych mental status grossly normal Skin no rashes or lesions noted MDM MDM MDM Narrative Medical decision making narrative: Patient presents to the emergency department for left upper quadrant abdominal pain. She thought that there was a lump there but this does appear to be her lower rib. She is very tender at this site. Will check basic lab work and CT imaging. She is given a dose of Toradol for symptomatic treatment. Patient's lab work did not show a high white blood cell count. She is not anemic. No significant electrolyte disturbance. Liver enzymes within normal limits. Lipase is not elevated. test is negative. CT scan of the abdomen/pelvis did not reveal any acute intra-abdominal pathology. Her spleen is mildly enlarged but is decreased in size compared to previous imaging. On reassessment patient is feeling better after treatment. She does feel comfortable being discharged home at this time. Will recommend symptomatic treatment in the meantime. She is to follow-up with her PCP. Return precautions are reviewed. She understands and is agreeable with plan. All questions are answered. Lab Data Labs: Laboratory Results - last 24 hr 01/03/21 01/03/21 01/03/21 00:15 00:15 00:15 WBC 9.2 RBC 4.42 Hgb 12.8 Hct 40.1 MCV 90.7 MCH 29.0 MCHC 31.9 L RDW Std Deviation 44.8 H RDW Coeff of Remi 13.5 Plt Count 268 MPV 9.2 Immature Gran % (Auto) 0.400 Neut % (Auto) 58.5 Lymph % (Auto) 32.6 [place] % (Auto) 6.7 Eos % (Auto) 1.5 Baso % (Auto) 0.3 Absolute Neuts (auto) 5.4 Absolute Lymphs (auto) 3.00 Nucleated RBC % 0 Sodium 138 Potassium 4.2 Chloride 104 Carbon Dioxide 29.0 Anion Gap 5 BUN 16 Creatinine 0.74 Estim Creat Clear Calc 85.52 Est GFR (MDRD) Af Amer 116 Est GFR (MDRD) Non-Af 96 BUN/Creatinine Ratio 21.6 H Glucose 94 Calcium 9.4 Total Bilirubin 0.30 AST 13 L ALT 31 Alkaline Phosphatase 67 Total Protein 7.3 Albumin 3.9 Globulin 3.4 Albumin/Globulin Ratio 1.1 Lipase 155 Serum , Qual NEGATIVE Radiography Diagnostic Testing: Radiology Impression Abdomen/Pelvis CT 01/03/21 00:10 IMPRESSION: Mild splenomegaly, which is slightly improved from the previous study. Stable mesenteric lymph node hyperplasia in the right lower quadrant of the abdomen. No evidence for acute pathology. Limited assessment of the stomach due to nondistention. Electronically Signed: Isaiah Gonzalez MD at 1:48 EDT , Service support , Discharge Plan Triage Chief Complaint: Abd Pain ED Provider: Sunil Weinberg Dx/Rx/DC Orders Clinical Impression: Abdominal pain Instructions: Abdominal Pain Prescriptions: No Action mesalamine 1,000 mg suppository 1 g RC .3xweek RF: 0 ferrous sulfate 325 mg (65 mg iron) tablet 325 mg PO DAILY RF: 0 folic acid 400 mcg tablet 1 mg PO DAILY RF: 0 cyanocobalamin (vitamin B-12) 2,500 mcg tablet 2,500 mcg PO DAILY RF: 0 magnesium citrate 125 mg capsule 125 mg PO DAILY RF: 0 escitalopram oxalate 5 mg tablet 5 mg PO DAILY RF: 0 levothyroxine 137 mcg capsule 68.5 mcg PO .THURSDAY RF: 0 Vyvanse 20 mg capsule 20 mg PO DAILY RF: 0 atenolol 50 mg tablet 50 mg PO BID Qty: 60 RF: 0 ondansetron HCl [Zofran] 4 mg tablet 4 mg PO Q8H PRN (Reason: nausea and vomiting) Qty: 30 RF: 3 Ubrelvy 100 mg tablet 100 mg PO ONCE PRN (Reason: migraine headache) Qty: 10 RF: 2 meloxicam 7.5 mg tablet 7.5 mg PO BID PRN (Reason: pain) Qty: 60 RF: 1 omeprazole 40 capsule,delayed release(DR/EC) 40 mg PO DAILY RF: 0 lorazepam 0.5 MG tablet 0.5 mg PO BID PRN PRN (Reason: Anxiety) RF: 0 flaxseed oil 1,000 MG capsule 1,000 mg PO DAILY RF: 0 cholecalciferol (vitamin D3) 5,000 UNIT capsule 5,000 unit PO DAILY RF: 0 duloxetine 60 mg capsule,delayed release(DR/EC) 60 mg PO DAILY RF: 0 levothyroxine 137 mcg tablet 137 mcg PO DAILY Qty: 90 RF: 2 midodrine 10 mg tablet 10 mg PO TID Qty: 90 RF: 12 losartan 25 mg tablet 25 mg PO DAILY RF: 0 Primary Care Provider: Alana Barclay Referrals: Alana Barclay DO [Primary Care Provider] - 2 Days Disposition Disposition: Home, Self Care
[2021-01-03 00:25] LABS: Absolute Neutrophil Count 5.4 X10^3/uL (2.0-7.7); Basophil# 0.03 X10^3/uL; Basophil% 0.3 % (0-1); Eosinophil# 0.14 X10^3/uL; Eosinophils% 1.5 % (0-5); Hematocrit 40.1 % (37-47); Hemoglobin 12.8 g/dL (12.0-15.0); Lymphocyte % 32.6 % (19-41); Mean Corp Hgb Conc 31.9 g/dL (32-36); Mean Corpuscular Volume 90.7 fL (81-99); Mean Platelet Vol. 9.2 fl (6.2-12.0); Monocyte# 0.62 X10^3/uL; Monocyte% 6.7 % (0-10); NRBC Flagged by Analyzer 0 % (0-5); Neutrophil # 5.36 X10^3/uL (2.7-7.7); Neutrophil % 58.5 % (47-70); Platelet Count 268 K/mm3 (150-450); RBC Distribution Width CV 13.5 % (11.6-14.6); RBC Distribution Width SD 44.8 fl (35.1-43.9); Red Blood Count 4.42 M/mm3 (4.2-5.4); White Blood Count 9.2 K/mm3 (4.4-11.0)
[2021-01-03] MEDS: Ketorolac 30 MG/ML Syringe IV (00:25)
[2021-01-03 00:34] LABS: Internal QC Validated? YES +Cl - CLEAR BKGD; Pregnancy, Serum, hCG Quali. NEGATIVE Negative
[2021-01-03 00:41] LABS: ALB/GLOB Ratio 1.1 RATIO (0.9-2.4); AST(SGOT) 13 U/L (15-37); Alanine Aminotransfer ALT/SGPT 31 U/L (13-56); Albumin, Serum 3.9 g/dL (3.2-5.0); Alkaline Phosphatase 67 U/L (45-117); Anion Gap 5 (5-15); BUN 16 mg/dL (7-18); BUN/Creat Ratio 21.6 RATIO (10-20); Calcium,Total 9.4 mg/dL (8.5-10.1); Chloride 104 mmol/L (98-107); Creatinine, Serum 0.74 mg/dL (0.55-1.02); EST Glomerular Filtration Rate 96 mL/min (>60); Est Glom Filt Rate - Afr Amer 116 mL/min (>60); Estimated Creatinine Clearance 85.52 ml/min; Globulin 3.4 g/dL (2.2-4.2); Glucose 94 mg/dL (74-106); Lipase 155 U/L (73-393); Potassium 4.2 mmol/L (3.5-5.1); Protein, Total 7.3 g/dL (6.4-8.2); Sodium Level 138 mmol/L (136-145)
[2021-01-03 01:51] VITALS: BP 114/75; PULSE 60; RESP 16; O2SAT 99
== END 2021-01-03 02:53 | disposition home or self-care (01) ==
PROVIDERS: Emergency Provider Emergency Medicine; PCP Internal Medicine
DX: R10.12 Left upper quadrant pain (principal); E03.9 Hypothyroidism, unspecified; F33.2 Major depressive disorder, recurrent severe without psychotic features; I10 Essential (primary) hypertension; Z79.899 Other long term (current) drug therapy
CPT/HCPCS: 74177; 80053; 83690; 84703; 85025; 96374; 99283; Q9967; A4216

== ENCOUNTER → 2021-03-13 09:08 | Outpatient (CLI) | payer BC, SELFPAY ==
[2020-12-03 09:12] VITALS: BMI 42.7
--- NOTE | 2021-03-13 12:36 | NEURO ---
NCS and/or EMG Patient Report Ordering Doctor: Alnaa Barclya DATE OF SERVICE: 03/13/21 Sandi Avendano Presents for electrodiagnostic testing of the left lower limb. She reports intermittent numbness and tingling in the left leg. She has had falls from her left leg giving out on her. Electrodiagnostic findings: Left peroneal motor nerve demonstrates normal distal latency amplitude and conduction velocity. Normal left tibial motor response. Sensory responses within normal limits. H reflex normal bilaterally. Normal tibial and peroneal F-wave. On needle EMG, all muscles tested in the left lower limb showed no evidence of denervation with normal motor unit action potentials. Electrodiagnostic assessment: This is a normal electrodiagnostic study of the left lower limb. There is no electrodiagnostic evidence for peripheral neuropathy or lumbosacral radiculopathy.
== END ==
PROVIDERS: PCP Internal Medicine; Referring Provider Internal Medicine; Visit Provider Internal Medicine
DX: R20.2 Paresthesia of skin (principal)
CPT/HCPCS: 95886; 95910

== ENCOUNTER → 2021-04-01 16:52 | Outpatient (CLI) | payer BC, SELFPAY ==
--- NOTE | 2021-04-01 16:54 | RAD_ITS ---
HISTORY: low back pain; left leg weakness. TECHNIQUE: XR Spine Lumbar 2 or 3 Views. Number of images including paperwork: 3. COMPARISON: CT abdomen and pelvis 01/03/2021. FINDINGS: VERTEBRAE: 5 lumbar vertebral bodies. Vertebral body heights maintained. No acute fracture identified. VERTEBRAL ALIGNMENT: No significant anterior or posterior subluxation. Mild thoracolumbar levoscoliosis. INTERVERTEBRAL DISCS: Mild intervertebral disc space narrowing of L5-S1. SOFT TISSUES: Moderate stool in the colon. RAD/Lumbar Spine 2 or 3 Views IMPRESSION: No acute fracture or dislocation identified in the lumbar spine. Mild L5-S1 degenerative change. Mild scoliosis. at 1230 Reported and signed by: Amanda Cullen MD Electronically Signed: Amanda Cullen MD at 12:29 EDT Tel , Service support ,
--- NOTE | 2021-04-01 16:54 | RAD_ITS ---
HISTORY: chronic neck pain. TECHNIQUE: XR Spine Cervical 2 or 3 Views. # of images incl. paperwork: 4. COMPARISON: None. FINDINGS: VERTEBRAE: No acute fracture identified. ALIGNMENT: No significant anterior or posterior subluxation.Upper thoracic scoliosis noted. INTERVERTEBRAL DISCS: Mild intervertebral disc space narrowing and endplate change at C5-6 and C6-7. SOFT TISSUES: No prevertebral soft tissue thickening. RAD/Cerv Spine 2 or 3 Views IMPRESSION: No acute fracture or dislocation identified in the cervical spine. Mild degenerative change of the lower cervical spine. Upper thoracic scoliosis. at 0926 Reported and signed by: Amanda Cullen MD Electronically Signed: Amanda Cullen MD at 9:25 EDT Tel , Service support ,
== END ==
PROVIDERS: PCP Internal Medicine; Referring Provider Nurse Practitioner Family; Visit Provider Nurse Practitioner Family
DX: M54.2 Cervicalgia (principal); G89.29 Other chronic pain; M54.50 Low back pain, unspecified; R29.898 Other symptoms and signs involving the musculoskeletal system
CPT/HCPCS: 72040; 72100

== ENCOUNTER → 2021-05-20 08:28 | Outpatient (CLI) | payer BC, SELFPAY ==
[2021-05-20 13:36] LABS: T4 Free Direct 1.12 ng/dL (0.76-1.46); Thyroid Stim Hormone (TSH) 6.46 uIU/mL (0.358-3.74)
== END ==
PROVIDERS: PCP Internal Medicine; Visit Provider Internal Medicine Endocrinology, Diabetes & Metabolism
DX: E03.8 Other specified hypothyroidism (principal); E06.3 Autoimmune thyroiditis
CPT/HCPCS: 36415; 84439; 84443

== ENCOUNTER → 2021-05-22 20:00 | Outpatient (CLI) | payer BC, SELFPAY | PROVIDERS: PCP Internal Medicine; Referring Provider Nurse Practitioner Acute Care; Visit Provider Nurse Practitioner Acute Care | DX: G47.33 Obstructive sleep apnea (adult) (pediatric) (principal) | CPT/HCPCS: 95811 ==

== ENCOUNTER 2021-07-18 13:47 | Outpatient (CLI) | payer BC, SELFPAY ==
[2021-07-18 15:11] LABS: Internal QC Validated? YES +Cl - CLEAR BKGD
[2021-07-18 15:12] LABS: Pregnancy, Urine Negative Negative
== END 2021-07-18 23:59 | disposition home or self-care (01) ==
LOC: MTLAB 13:48
PROVIDERS: PCP Internal Medicine; Referring Provider Nurse Practitioner Family; Visit Provider Nurse Practitioner Family
DX: N92.6 Irregular menstruation, unspecified (principal); Z78.9 Other specified health status
CPT/HCPCS: 81025

== ENCOUNTER 2021-07-19 11:06 | Outpatient (CLI) | payer BC, SELFPAY ==
[2021-07-19 12:36] LABS: T4 Free Direct 1.19 ng/dL (0.76-1.46); Thyroid Stim Hormone (TSH) 2.22 uIU/mL (0.358-3.74)
== END 2021-07-19 23:59 | disposition home or self-care (01) ==
LOC: BIMLAB 11:07
PROVIDERS: PCP Internal Medicine; Referring Provider Internal Medicine Endocrinology, Diabetes & Metabolism; Visit Provider Internal Medicine Endocrinology, Diabetes & Metabolism
DX: E03.8 Other specified hypothyroidism (principal); E06.3 Autoimmune thyroiditis
CPT/HCPCS: 36415; 84439; 84443

== ENCOUNTER 2021-08-05 11:30 | Outpatient (RCR) | payer BC, SELFPAY | END 2021-08-05 23:59 | LOC: NS 11:30 | PROVIDERS: PCP Internal Medicine; Referring Provider Nurse Practitioner; Visit Provider Nurse Practitioner | DX: Z71.3 Dietary counseling and surveillance (principal); E66.01 Morbid (severe) obesity due to excess calories; Z68.43 Body mass index [BMI] 50.0-59.9, adult | CPT/HCPCS: 97802; 97803 ==

== ENCOUNTER 2021-08-26 10:00 | Outpatient (RCR) | payer BC, SELFPAY | END 2021-09-05 23:59 | LOC: NS 10:00 | PROVIDERS: PCP Internal Medicine; Referring Provider Nurse Practitioner; Visit Provider Nurse Practitioner | DX: Z71.3 Dietary counseling and surveillance (principal); E66.01 Morbid (severe) obesity due to excess calories; Z68.43 Body mass index [BMI] 50.0-59.9, adult | CPT/HCPCS: 97803 ==

== ENCOUNTER → 2021-10-23 | Outpatient (CLI) | payer BC, SELFPAY ==
[2021-10-31 08:18] LABS: HPV APTIMA, High Risk Negative (Negative)
== END | disposition home or self-care (01) ==
LOC: LABSPEC 10-24 08:00
PROVIDERS: PCP Internal Medicine; Visit Provider Nurse Practitioner Women's Health
DX: Z12.4 Encounter for screening for malignant neoplasm of cervix (principal)
CPT/HCPCS: 87624; 88175; G0145

== ENCOUNTER 2021-10-24 09:30 | Outpatient (RCR) | payer BC, SELFPAY | END 2021-11-05 23:59 | LOC: NS 09:30 | PROVIDERS: PCP Internal Medicine; Referring Provider Nurse Practitioner; Visit Provider Nurse Practitioner | DX: Z71.3 Dietary counseling and surveillance (principal); E66.01 Morbid (severe) obesity due to excess calories; Z68.43 Body mass index [BMI] 50.0-59.9, adult | CPT/HCPCS: 97803 ==

== ENCOUNTER 2021-11-20 09:33 | Outpatient (RCR) | payer BC, SELFPAY | END 2021-12-05 23:59 | LOC: NS 09:33 | PROVIDERS: PCP Internal Medicine; Referring Provider Internal Medicine; Visit Provider Internal Medicine | DX: Z71.3 Dietary counseling and surveillance (principal); E66.01 Morbid (severe) obesity due to excess calories; Z68.43 Body mass index [BMI] 50.0-59.9, adult | CPT/HCPCS: 97803 ==

== ENCOUNTER → 2022-07-30 | Outpatient (CLI) | payer MEDICAID, SELFPAY ==
[2022-07-30 08:51] LABS: Hematocrit 42.7 % (37-47); Hemoglobin 13.9 g/dL (12.0-15.0); Mean Corp Hgb Conc 32.6 g/dL (32-36); Mean Corpuscular Hgb 30.3 pg (27.0-32.0); Mean Corpuscular Volume 93.2 fL (81-99); Mean Platelet Vol. 9.8 fl (6.2-12.0); Platelet Count 287 K/mm3 (150-450); RBC Distribution Width CV 13.7 % (11.6-14.6); RBC Distribution Width SD 46.6 fl (35.1-43.9); Red Blood Count 4.58 M/mm3 (4.2-5.4); White Blood Count 10.2 K/mm3 (4.4-11.0)
[2022-07-30 09:40] LABS: Anion Gap 2 (5-15); BUN 8 mg/dL (7-18); BUN/Creat Ratio 9.2 RATIO (10-20); Calcium,Total 9.1 mg/dL (8.5-10.1); Chloride 106 mmol/L (98-107); Creatinine, Serum 0.87 mg/dL (0.55-1.02); EST Glomerular Filtration Rate 78 mL/min (>60); Est Glom Filt Rate - Afr Amer 95 mL/min (>60); Glucose 141 mg/dL (74-106); Magnesium 2.1 mg/dL (1.6-2.6); Potassium 4.1 mmol/L (3.5-5.1); Sodium Level 139 mmol/L (136-145); T4 Total, Thyroxin 11.2 ug/dL (4.8-13.9); Thyroid Stim Hormone (TSH) 6.53 uIU/mL (0.358-3.74)
== END | disposition home or self-care (01) ==
PROVIDERS: PCP Internal Medicine; Referring Provider Nurse Practitioner Family; Visit Provider Nurse Practitioner Family
DX: R42 Dizziness and giddiness (principal); E87.6 Hypokalemia; R55 Syncope and collapse; E03.8 Other specified hypothyroidism; E06.3 Autoimmune thyroiditis; D64.9 Anemia, unspecified
CPT/HCPCS: 36415; 80048; 83735; 84436; 84443; 85027

== ENCOUNTER → 2022-08-25 | Outpatient (CLI) | payer MEDICAID, SELFPAY ==
[2022-08-27 17:07] LABS: Clam <0.10 kU/L (Class 0); Codfish <0.10 kU/L (Class 0); Corn <0.10 kU/L (Class 0); Egg, White <0.10 kU/L (Class 0); Egg, Whole <0.10 kU/L (Class 0); Egg, Yolk <0.10 kU/L (Class 0); Gluten <0.10 kU/L (Class 0); Milk (Cow) <0.10 kU/L (Class 0); Oat <0.10 kU/L (Class 0); Peanut 0.11 kU/L (Class 0/I); SCALLOP <0.10 kU/L (Class 0); SESAME SEED 0.11 kU/L (Class 0/I); Shrimp <0.10 kU/L (Class 0); Soybean <0.10 kU/L (Class 0); Walnut, (Food) <0.10 kU/L (Class 0); Wheat <0.10 kU/L (Class 0)
[2022-08-27 21:18] LABS: Yeast <0.10 kU/L (Class 0)
[2022-08-27 21:19] LABS: Wheat <0.10 kU/L (Class 0)
== END | disposition home or self-care (01) ==
LOC: LAB 10:56
PROVIDERS: PCP Internal Medicine; Referring Provider Otolaryngology Otolaryngology/Facial Plastic Surgery; Visit Provider Otolaryngology Otolaryngology/Facial Plastic Surgery
DX: T78.40XA Allergy, unspecified, initial encounter (principal)
CPT/HCPCS: 36415; 86003

== ENCOUNTER 2022-09-24 09:41 | Emergency (ER) | payer MEDICAID, SELFPAY ==
[2022-09-24 09:42] VITALS: BP 182/131; PULSE 97; RESP 18; TEMP 36.4; O2SAT 99; BMI 57.6
--- NOTE | 2022-09-24 09:56 | EDS_ITS ---
HPI History of Present Illness Chief Complaint: Complaint Narrative Narrative: Patient presents with left-sided flank pain, left-sided abdominal pain, and she noticed blood in her urine this morning. No fevers or chills although she does feel somewhat weak. She has no right-sided pain. No diarrhea. No upper abdominal pain. 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 Left leg weakness Low back pain Major depressive disorder, recurrent severe without psychotic features Neurocardiogenic syncope Obesity Palpitations Palpitations Postural orthostatic tachycardia syndrome Premature ventricular contraction Recurrent UTI Scoliosis Seasonal allergies Suicidal ideation (~10/2021) Ulcerative colitis Vasovagal syncope Vitamin D deficiency Home Medications flaxseed oil 1,000 mg capsule 1,000 mg PO DAILY SUPPLEMENT 11/18/18 [History Last Taken 02/02/20] mesalamine 1,000 mg rectal suppository 1 g ND .3xweek 04/18/19 [History Last Taken 02/01/20] cholecalciferol (vitamin D3) 25 mcg (1,000 unit) capsule 7,000 unit PO DAILY 01/29/21 [History Last Taken Unknown] hydroxyzine HCl 25 mg tablet 13.5 - 25 mg PO BID PRN 04/01/21 [History Last Taken Unknown] albuterol sulfate 90 mcg/actuation aerosol inhaler 2 puff inhalation Q6H PRN 04/29/21 [History Last Taken Unknown] ferrous sulfate 325 mg (65 mg iron) tablet (Feosol) 325 mg PO DAILY 07/18/21 [History Last Taken Unknown] magnesium 250 mg tablet 250 mg PO DAILY 10/11/21 [History Last Taken Unknown] ubrogepant 100 mg tablet (Ubrelvy) 100 mg PO ONCE PRN migraine #16 tabs 10/24/21 [Rx Last Taken Unknown] dextroamphetamine-amphetamine 10 mg tablet (Adderall) 10 mg PO BID 04/23/22 [History Last Taken Unknown] multivitamin 1 tab PO DAILY 04/23/22 [History Last Taken Unknown] ondansetron HCl 4 mg tablet 4 mg PO Q8H PRN nausea and vomiting #90 tabs 07/14/22 [Rx Last Taken Unknown] duloxetine 30 mg capsule,delayed release 30 mg PO .COMPLEX 07/29/22 [History Last Taken Unknown] duloxetine 60 mg capsule,delayed release sprinkle 60 mg PO .COMPLEX 07/29/22 [History Last Taken Unknown] levothyroxine 175 mcg tablet 175 mcg PO DAILY 07/29/22 [History Last Taken Unknown] propranolol 10 mg tablet See Rx Instructions .Route .COMPLEX #60 tabs 09/04/22 [Rx Last Taken Unknown] polyethylene glycol 3350 17 gram/dose oral powder (Miralax) 17 g PO BID #119 grams 09/24/22 [Rx Last Taken Unknown] sulfamethoxazole 800 mg-trimethoprim 160 mg tablet (Bactrim DS) 1 tab PO BID #14 tabs 09/24/22 [Rx Last Taken Unknown] Allergy/AdvReac Type Severity Reaction Status Date / Time house dust mite Allergy Severe asthma Verified 09/24/22 09:42 Family History Father CVA (cerebral vascular accident) S/P AVR (aortic valve replacement) Depression Mother Hypertension Psoriasis Depression Grandfather Myocardial infarction Cancer Brain tumor Depression CVA (cerebral vascular accident) Grandmother Arthritis Autoimmune disorder Depression Osteoporosis Aunt Autoimmune disorder Cervical cancer Colon cancer Depression Thyroid disorder Aunt Parkinsons disease Thyroid disorder Surgical History H/O colonoscopy History of dental surgery Social History household members: spouse current occupational status: disabled Smoking Status: Never smoker Electronic Cigarette Use: not used second hand exposure: No alcohol intake: former details: march 23 2016 substance use type: does not use caffeine: Yes Type: coffee Number of servings: 2 what type of physical activity do you participate in: walking and yoga frequency: 1-2 times per week seatbelt use: always do you feel safe at home: Yes additional social history: - [place] ROS ROS ED ROS Narrative Past medical history: Reviewed Medications: Reviewed Social history: Noncontributory Review of systems: General: No fever Eyes: No visual changes ENT: No upper airway congestion, normal voice Neck: No neck pain Cardiovascular: No chest pain Respiratory: No shortness of breath or cough Gastrointestinal: As in HPI Genitourinary: As in HPI Musculoskeletal: Denies myalgias no difficulty with ambulation Skin: No rash Neurological: No memory loss, confusion or any focal weakness EXAM Physical Exam Narrative Exam Narrative: Physical exam General: Patient appears somewhat uncomfortable Head: Normocephalic, Atraumatic Eyes: Conjunctiva not pale ENT: Moist mucous membranes Neck: Supple, Nontender, No lymphadenopathy Cardiovascular: Regular rate, Regular rhythm Respiratory: No distress, CTA bilaterally Abdomen: Soft, left lower and left CVA tenderness. Back: Nontender, Normal Inspection. Extremities: Nontender, No edema Skin: Normal color, No rash Const Vital Signs: 09/24/22 09:42 09/24/22 11:45 Temperature 97.6 F L Temperature Source Temporal Pulse Rate 97 74 Respiratory Rate 18 18 Blood Pressure 182/131 H Blood Pressure Mean 148 Pulse Ox 99 100 Oxygen Delivery Method Room Air MDM MDM MDM Narrative Medical decision making narrative: A. Problems addressed Patient has abdominal pain flank pain and some urinary symptoms. She is found to have a urinary tract infection. There is no evidence of kidney stone however she does have constipation. She has a history of ulcerative colitis however this is not evident on CT and the white count is normal. I will treat her with antibiotics for the UTI, I will give her MiraLAX for her constipation. Otherwise I discussed with her and her and she is stable for discharge B. Amount and/or complexity of the data 1. CBC CMP urinalysis and are interpreted by me is unremarkable other than a UTI. I also discussed with as far as history and plan. 2. CT read by me and radiologist is unremarkable C. Risk of complications and/or morbidity Differential diagnosis: Colitis, kidney stone, diverticulitis. All these are not found on blood work or CT. Lab Data Labs: Laboratory Results - last 24 hr 09/24/22 09/24/22 09/24/22 10:14 10:14 11:45 WBC 8.9 RBC 4.47 Hgb 13.8 Hct 41.5 MCV 92.8 MCH 30.9 MCHC 33.3 RDW Std Deviation 44.1 H RDW Coeff of Remi 13.1 Plt Count 251 MPV 9.6 Immature Gran % (Auto) 0.300 Neut % (Auto) 64.1 Lymph % (Auto) 27.1 [place] % (Auto) 6.6 Eos % (Auto) 1.7 Baso % (Auto) 0.2 Absolute Neuts (auto) 5.7 Absolute Lymphs (auto) 2.40 Nucleated RBC % 0 Sodium 137 Potassium 4.1 Chloride 105 Carbon Dioxide 28.0 Anion Gap 4 L BUN 12 Creatinine 0.77 Estim Creat Clear Calc 80.65 Est GFR (MDRD) Af Amer 109 Est GFR (MDRD) Non-Af 90 BUN/Creatinine Ratio 15.6 Glucose 103 Calcium 9.0 Total Bilirubin 0.40 AST 20 ALT 40 Alkaline Phosphatase 96 Total Protein 6.6 Albumin 3.5 Globulin 3.1 Albumin/Globulin Ratio 1.1 Urine Color Yellow Urine Clarity Sl. Cloudy Urine pH 8.0 Ur Specific [place] 1.015 Urine Protein Negative Urine Glucose (UA) Normal Urine Ketones Negative Urine Occult Blood Negative Urine Nitrite Negative Urine Bilirubin Negative Urine Urobilinogen Normal Ur Leukocyte Esterase 500 H Urine RBC 0 SEEN Urine WBC 25-50 SEEN Ur Squamous Epith Cells 5-10 SEEN Urine Bacteria 1+ Urine Mucus 0 SEEN Urine Test Negative Radiography Diagnostic Testing: Clinical Impression(s) from Imaging Studies Abdomen/Pelvis CT 09/24/22 11:05 IMPRESSION: No suspicious solid organ abnormality, specifically, no obstructive uropathy or suspicious solid renal lesion. No free peritoneal fluid, air, or suspicious adenopathy. Normal appendix visualized Retained stool Electronically Signed: Natan Pulido MD at 11:33 EDT Reading Location ID and State: [address] [place] [address] , Service support , Discharge Plan Triage Chief Complaint: Complaint ED Provider: Charlie Stephens Dx/Rx/DC Orders Clinical Impression: UTI (urinary tract infection), Abdominal pain, Constipation Instructions: ED Constipation (Adult), ED Cystitis Female Adult Prescriptions: New polyethylene glycol 3350 [Miralax] 17 gram/dose powder 17 g PO BID Qty: 119 0RF sulfamethoxazole-trimethoprim [Bactrim DS] 800-160 mg tablet 1 tab PO BID Qty: 14 0RF No Action mesalamine 1,000 mg suppository 1 g RC .3xweek albuterol sulfate 90 mcg/actuation HFA aerosol inhaler 2 puff inhalation Q6H PRN cholecalciferol (vitamin D3) 25 mcg (1,000 unit) capsule 7,000 unit PO DAILY magnesium 250 mg tablet 250 mg PO DAILY hydroxyzine HCl 25 mg tablet 13.5 - 25 mg PO BID PRN ferrous sulfate [Feosol] 325 mg (65 mg iron) tablet 325 mg PO DAILY Ubrelvy 100 mg tablet 100 mg PO ONCE PRN (Reason: migraine) Qty: 16 6RF Rx Instructions: as a single dose; may repeat once in >=2 hours after first dose if needed multivitamin Tablet 1 tab PO DAILY dextroamphetamine-amphetamine [Adderall] 10 mg tablet 10 mg PO BID Rx Instructions: administer doses at least 4-6 hours apart flaxseed oil 1,000 MG capsule 1,000 mg PO DAILY ondansetron HCl 4 mg tablet 4 mg PO Q8H PRN (Reason: nausea and vomiting) Qty: 90 1RF levothyroxine 175 mcg tablet 175 mcg PO DAILY duloxetine 60 mg capsule, delayed rel sprinkle 60 mg PO .COMPLEX Rx Instructions: 60 mg orally daily with a 30 mg capsule to = 90 mg dialy; duloxetine 30 mg capsule,delayed release(DR/EC) 30 mg PO .COMPLEX Rx Instructions: 30 mg orally daily with a 60 mg capsule to = 90 mg; propranolol 10 mg tablet See Rx Instructions .ROUTE .COMPLEX Qty: 60 1RF Dose Instruction: take 1 tablet by mouth twice a day Rx Instructions: take 1 tablet by mouth twice a day Primary Care Provider: Alana Barclay Referrals: Alana Barclay DO [Primary Care Provider] - 3-5 Days Disposition Disposition: Home, Self Care
[2022-09-24] MEDS: 0.9% Normal Saline 1,000 ML 1000 ML IV (10:13)
[2022-09-24] MEDS: Ondansetron 4 MG/2 ML Vial IV (10:13)
[2022-09-24] MEDS: Ketorolac 15 MG/ML Vial IV (10:13)
[2022-09-24 10:21] LABS: Absolute Neutrophil Count 5.7 X10^3/uL (2.0-7.7); Basophil# 0.02 X10^3/uL; Basophil% 0.2 % (0-1); Eosinophil# 0.15 X10^3/uL; Eosinophils% 1.7 % (0-5); Hematocrit 41.5 % (37-47); Hemoglobin 13.8 g/dL (12.0-15.0); Lymphocyte % 27.1 % (19-41); Mean Corp Hgb Conc 33.3 g/dL (32-36); Mean Corpuscular Hgb 30.9 pg (27.0-32.0); Mean Corpuscular Volume 92.8 fL (81-99); Mean Platelet Vol. 9.6 fl (6.2-12.0); Monocyte# 0.58 X10^3/uL; Monocyte% 6.6 % (0-10); NRBC Flagged by Analyzer 0 % (0-5); Neutrophil # 5.67 X10^3/uL (2.7-7.7); Neutrophil % 64.1 % (47-70); Platelet Count 251 K/mm3 (150-450); RBC Distribution Width CV 13.1 % (11.6-14.6); RBC Distribution Width SD 44.1 fl (35.1-43.9); Red Blood Count 4.47 M/mm3 (4.2-5.4); White Blood Count 8.9 K/mm3 (4.4-11.0)
[2022-09-24 10:38] LABS: ALB/GLOB Ratio 1.1 RATIO (0.9-2.4); AST(SGOT) 20 U/L (15-37); Alanine Aminotransfer ALT/SGPT 40 U/L (13-56); Albumin, Serum 3.5 g/dL (3.2-5.0); Alkaline Phosphatase 96 U/L (45-117); Anion Gap 4 (5-15); BUN 12 mg/dL (7-18); BUN/Creat Ratio 15.6 RATIO (10-20); Chloride 105 mmol/L (98-107); Creatinine, Serum 0.77 mg/dL (0.55-1.02); EST Glomerular Filtration Rate 90 mL/min (>60); Est Glom Filt Rate - Afr Amer 109 mL/min (>60); Estimated Creatinine Clearance 80.65 ml/min; Globulin 3.1 g/dL (2.2-4.2); Glucose 103 mg/dL (74-106); Potassium 4.1 mmol/L (3.5-5.1); Protein, Total 6.6 g/dL (6.4-8.2); Sodium Level 137 mmol/L (136-145)
--- NOTE | 2022-09-24 11:05 | CT_ITS ---
STUDY: CT ABDOMEN AND PELVIS WITHOUT CONTRAST REASON FOR EXAM: Female, 37 years old. Flank pain RADIATION DOSAGE (If Supplied By Facility): CTDIvol = ( 24.17 ) mGy, DLP = ( 1262.05 ) mGycm TECHNIQUE: Transaxial images were obtained from the dome of the diaphragm to the symphysis pubis without oral contrast, and without intravenous contrast. Sagittal and coronal images were reconstructed. Individualized dose optimization techniques were used for this CT. COMPARISON: 01/03/2021 FINDINGS: The visualized lung bases are unremarkable. The visualized portions of the heart are within normal limits. Normal liver. Normal gallbladder and extrahepatic biliary system. Normal spleen. Normal pancreas. Normal bilateral adrenal glands. Normal right kidney. Normal left kidney. Normal visualized stomach. Normal small intestine. Retained stool noted in the colon. The appendix is visualized and appears normal. Appendix seen on coronal recon images 63 through 72 Normal abdominal aorta. Normal inferior vena cava. Normal retroperitoneum. Normal urinary bladder. Normal-appearing uterus. No suspicious cystic mass or free fluid in the pelvis Normal abdominal wall. Normal osseous structures. CT/Abdomen/Pelvis without Cont IMPRESSION: No suspicious solid organ abnormality, specifically, no obstructive uropathy or suspicious solid renal lesion. No free peritoneal fluid, air, or suspicious adenopathy. Normal appendix visualized Retained stool Electronically Signed: Natan Pulido MD at 11:33 EDT ,
[2022-09-24 11:45] VITALS: PULSE 74; RESP 18; O2SAT 100
[2022-09-24 11:55] LABS: Mucous, Urine 0 SEEN /hpf (<or=2+); Red Blood Cells-Urine 0 SEEN /hpf (0-5)
[2022-09-24 11:57] LABS: Color, Urine Yellow (Yellow); Glucose, Dipstick Normal (Normal); Ketone-Dipstick Negative (Negative); Leukocyte Esterase-Dipstick 500 /ul (Negative); Nitrite-Dipstick Negative (Negative); Occult Blood-Urine Negative /ul (Negative); Protein-Dipstick Negative (Negative); Specific Gravity, Urine 1.015 (1.002-1.030); Urine Bilirubin Dipstick Negative (Negative); Urine Clarity Sl. Cloudy (Clear); Urine Urobilinogen Normal (Normal)
[2022-09-24 12:05] LABS: Bacteria 1+ /hpf (None Seen); Squamous Epithelial Cells - UA 5-10 SEEN /hpf (5-10); White Blood Cells 25-50 SEEN /hpf (0-5)
[2022-09-24 12:06] LABS: Internal QC Validated? YES +Cl - CLEAR BKGD; Pregnancy, Urine Negative Negative
[2022-09-24] MEDS: Smz/Tmp Ds Tablet 1 TABLET PO (12:35)
[2022-09-24 12:41] VITALS: BP 135/74; PULSE 62; RESP 15; O2SAT 97
== END 2022-09-24 12:42 | disposition home or self-care (01) ==
PROVIDERS: Emergency Provider Emergency Medicine; PCP Internal Medicine; Visit Provider Emergency Medicine
DX: N39.0 Urinary tract infection, site not specified (principal); R10.9 Unspecified abdominal pain; K59.00 Constipation, unspecified
CPT/HCPCS: 74176; 80053; 81001; 81025; 85025; 96361; 96374; 96375; 99284; J7030; A4216; J2405

== ENCOUNTER 2022-12-29 10:31 | Outpatient (RCR) | payer BC, SELFPAY | END 2023-01-05 23:59 | LOC: NS 10:31 | PROVIDERS: PCP Internal Medicine; Referring Provider Internal Medicine; Visit Provider Internal Medicine | DX: Z71.3 Dietary counseling and surveillance (principal); E66.01 Morbid (severe) obesity due to excess calories; Z68.43 Body mass index [BMI] 50.0-59.9, adult | CPT/HCPCS: 97802 ==

== ENCOUNTER 2023-02-23 11:53 | Outpatient (RCR) | payer BC, SELFPAY | END 2023-03-07 23:59 | LOC: NS 11:53 | PROVIDERS: PCP Internal Medicine; Referring Provider Internal Medicine; Visit Provider Internal Medicine | DX: Z71.3 Dietary counseling and surveillance (principal); E66.01 Morbid (severe) obesity due to excess calories; Z68.43 Body mass index [BMI] 50.0-59.9, adult | CPT/HCPCS: 97803 ==

== ENCOUNTER 2023-06-09 12:12 | Emergency (ER) | payer BC, MEDICARE, MEDICAID, SELFPAY ==
[2023-06-09 12:13] VITALS: BP 167/117; PULSE 108; RESP 4; TEMP 36.2; O2SAT 98; BMI 56.6
--- NOTE | 2023-06-09 13:05 | CT_ITS ---
STUDY: CT ABDOMEN AND PELVIS WITH CONTRAST REASON FOR EXAM: Female, 37 years old. Abdominal pain RADIATION DOSAGE (If Supplied By Facility): CTDIvol = ( 17.07 ) mGy, DLP = ( 1234.22 ) mGycm TECHNIQUE: IV 100mL Isovue-300 was administered. Transaxial images were obtained from the dome of the diaphragm to the symphysis pubis. Multiplanar coronal and sagittal images were reformatted. Individualized Dose Optimization Techniques Were Used For This CT. COMPARISON: Prior study dated: 09/24/2022. FINDINGS: The visualized lung bases are unremarkable. The visualized portions of the heart are within normal limits. Mild hepatic steatosis. No focal lesion is seen. Normal gallbladder and extrahepatic biliary system. Normal spleen. Normal pancreas. Normal bilateral adrenal glands. Normal visualized stomach. Normal small intestine. Fecal retention. No evidence of acute diverticulitis. The appendix is visualized and appears normal. Normal abdominal aorta. No retroperitoneal adenopathy. Normal right kidney. Normal left kidney. Normal urinary bladder. Normal abdominal wall. Normal osseous structures. CT/Abdomen/Pelvis W IV Cont ONLY IMPRESSION: No focal acute inflammatory process. Electronically Signed: Brian Crump MD at 14:19 EST ,
--- NOTE | 2023-06-09 13:09 | EDS_ITS ---
HPI <ONELIA Leblanc - Last Filed: 06/09/23 15:16> HPI - GI History of Present Illness Chief Complaint: GI Bleed Narrative Narrative: Patient presenting today due to rectal bleeding that started yesterday. She is reports that she is passing bright red blood and blood clots. 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 She reports that she uses mesalamine suppositories but missed her last few doses due to being sick last week with a cold. She follows with GI, Dr. Reyna. She reports that yesterday she also developed lower and left upper quadrant abdominal pain. She is nauseous but has not had any fevers, chills, vomiting, and urinary symptoms. PMH includes proctitis, Adriane's, asthma, migraines, ADHD, depression, and anxiety. 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 Left leg weakness Low back pain Major depressive disorder, recurrent severe without psychotic features Neurocardiogenic syncope Obesity Palpitations Palpitations Postural orthostatic tachycardia syndrome Premature ventricular contraction Recurrent UTI Scoliosis Seasonal allergies Suicidal ideation (~10/2021) Ulcerative colitis Vasovagal syncope Vitamin D deficiency Home Medications flaxseed oil 1,000 mg capsule 1,000 mg PO DAILY SUPPLEMENT 11/18/18 [History Last Taken 02/02/20] mesalamine 1,000 mg rectal suppository 1 g MO .3xweek 04/18/19 [History Last Taken 02/01/20] cholecalciferol (vitamin D3) 25 mcg (1,000 unit) capsule 7,000 unit PO DAILY 01/29/21 [History Last Taken Unknown] hydroxyzine HCl 25 mg tablet 13.5 - 25 mg PO BID PRN 04/01/21 [History Last Taken Unknown] albuterol sulfate 90 mcg/actuation aerosol inhaler 2 puff inhalation Q6H PRN 04/29/21 [History Last Taken Unknown] ferrous sulfate 325 mg (65 mg iron) tablet (Feosol) 325 mg PO DAILY 07/18/21 [History Last Taken Unknown] magnesium 250 mg tablet 250 mg PO DAILY 10/11/21 [History Last Taken Unknown] dextroamphetamine-amphetamine 10 mg tablet (Adderall) 10 mg PO BID 04/23/22 [History Last Taken Unknown] multivitamin 1 tab PO DAILY 04/23/22 [History Last Taken Unknown] ondansetron HCl 4 mg tablet 4 mg PO Q8H PRN nausea and vomiting #90 tabs 07/14/22 [Rx Last Taken Unknown] duloxetine 30 mg capsule,delayed release 30 mg PO .COMPLEX 07/29/22 [History Last Taken Unknown] duloxetine 60 mg capsule,delayed release sprinkle 60 mg PO .COMPLEX 07/29/22 [History Last Taken Unknown] levothyroxine 175 mcg tablet 175 mcg PO DAILY 07/29/22 [History Last Taken Unknown] polyethylene glycol 3350 17 gram/dose oral powder (Miralax) 17 g PO BID #119 grams 09/24/22 [Rx Last Taken Unknown] sulfamethoxazole 800 mg-trimethoprim 160 mg tablet (Bactrim DS) 1 tab PO BID #14 tabs 09/24/22 [Rx Last Taken Unknown] propranolol 10 mg tablet See Rx Instructions .Route .COMPLEX #60 tabs 11/18/22 [Rx Last Taken Unknown] ubrogepant 100 mg tablet (Ubrelvy) 100 mg PO .COMPLEX migraine #16 tabs 11/22/22 [Rx Last Taken Unknown] prednisone 20 mg tablet 40 mg (2 x 20 mg) PO DAILY 4 days #8 tabs 06/09/23 [Rx Last Taken Unknown] Allergy/AdvReac Type Severity Reaction Status Date / Time house dust mite Allergy Severe asthma Verified 06/09/23 12:13 Milk Containing Products AdvReac Severe Hives Verified 06/09/23 12:13 (Dairy) Family History Father CVA (cerebral vascular accident) S/P AVR (aortic valve replacement) Depression Mother Hypertension Psoriasis Depression Grandfather Myocardial infarction Cancer Brain tumor Depression CVA (cerebral vascular accident) Grandmother Arthritis Autoimmune disorder Depression Osteoporosis Aunt Autoimmune disorder Cervical cancer Colon cancer Depression Thyroid disorder Aunt Parkinsons disease Thyroid disorder Surgical History H/O colonoscopy History of dental surgery Social History household members: spouse current occupational status: employed 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 Smoking Status: Never smoker Electronic Cigarette Use: not used second hand exposure: No alcohol intake: former details: march 23 2016 substance use type: does not use caffeine: Yes Type: coffee Number of servings: 2 what type of physical activity do you participate in: walking and yoga frequency: 1-2 times per week seatbelt use: always do you feel safe at home: Yes additional social history: - [employer] ROS <ONELIA Leblanc - Last Filed: 06/09/23 15:16> ROS ED Constitutional Constitutional ED: Denies chills or fever(s) Cardiovascular Cardiovascular: Denies chest pain Respiratory/Chest Respiratory/Chest: Denies cough or dyspnea Gastrointestinal Gastrointestinal: Reports abdominal pain, hematochezia and nausea; Denies constipation or vomiting Genitourinary Genitourinary ED: Denies dysuria, hematuria or urinary urgency Musculoskeletal Musculoskeletal: Denies arthralgias or myalgias Integumentary Denies rash Neurologic Neurologic: Denies weakness EXAM <ONELIA Leblanc - Last Filed: 06/09/23 15:16> Physical Exam Const Vital Signs: 06/09/23 12:13 Temperature 97.2 F L Temperature Source Temporal Pulse Rate 108 H Respiratory Rate 4 L Blood Pressure 167/117 H Blood Pressure Mean 133 Pulse Ox 98 Oxygen Delivery Method Room Air Positive well nourished, well developed and no apparent distress General Appearance ED: well developed HEENT Reports normocephalic and head/scalp atraumatic Mouth ED: Yes moist mucous membranes normal Eyes PERRL and EOMs intact bilaterally Neck full ROM and supple Chest Wall inspection of chest normal Resp normal respiratory effort and clear to auscultation bilaterally Cardio regular rate and regular rhythm GI soft to palpation, non-distended and no masses GI Narrative: Generalized tenderness to palpation without rigidity, guarding, or peritoneal signs Back/Spine normal ROM and normal to inspection Extremity normal to inspection and full ROM Neuro oriented x3, CN's II-XII intact bilaterally, moves all extremities, no focal motor deficits and no sensory deficits noted Sensorium / Orientation: awake and alert Psych mental status grossly normal and thought process normal Skin no rashes or lesions noted and no wounds <Dr. Rick Duvall MD - Last Filed: 06/10/23 15:50> Physical Exam Const Vital Signs: 06/09/23 12:13 Temperature 97.2 F L Temperature Source Temporal Pulse Rate 108 H Respiratory Rate 4 L Blood Pressure 167/117 H Blood Pressure Mean 133 Pulse Ox 98 Oxygen Delivery Method Room Air MDM <ONELIA Leblanc - Last Filed: 06/09/23 15:16> [facility] Narrative Medical decision making narrative: Patient presenting due to rectal bleeding and abdominal pain that started 2 days ago. She has a history of proctitis and does use methylamine suppositories but missed her last few doses. She follows with GI and was sent in by the nurse. She is nontoxic-appearing and in no distress. She is hypertensive but otherwise vitals are unremarkable. Labs obtained as well as a CT scan of the abdomen and pelvis. She has been given IV fluids, analgesia, and Zofran. H&H is normal at 14.5 and 45.6. CBC, CMP, and lipase are unremarkable. UA negative for UTI. CT of the abdomen and pelvis negative for any acute findings. She reports that she has received prednisone in the past for her flares, this will be prescribed to her, given first dose here. I did offer to give her a prescription for Bentyl for home but she reports that she does not need this. She is to follow-up with GI and has been given return instructions. She will be discharged home in stable condition and is comfortable with plan. Lab Data Attestation: I reviewed the patient's lab results. Labs: Laboratory Results - last 24 hr 06/09/23 06/09/23 13:08 14:16 WBC 8.7 RBC 5.15 Hgb 14.5 Hct 45.6 MCV 88.5 MCH 28.2 MCHC 31.8 L RDW Std Deviation 43.4 RDW Coeff of Remi 13.5 Plt Count 276 MPV 9.4 Immature Gran % (Auto) 0.500 Neut % (Auto) 66.2 Lymph % (Auto) 25.4 [place] % (Auto) 6.1 Eos % (Auto) 1.3 Baso % (Auto) 0.5 Absolute Neuts (auto) 5.8 Absolute Lymphs (auto) 2.20 Nucleated RBC % 0 Sodium 139 Potassium 4.3 Chloride 106 Carbon Dioxide 30.0 Anion Gap 3 L BUN 12 Creatinine 0.92 Estim Creat Clear Calc 67.50 Est GFR (MDRD) Af Amer 89 Est GFR (MDRD) Non-Af 74 BUN/Creatinine Ratio 13.1 Glucose 118 H Calcium 9.1 Total Bilirubin 0.40 AST 28 ALT 50 Alkaline Phosphatase 124 H Total Protein 7.3 Albumin 3.6 Globulin 3.7 Albumin/Globulin Ratio 1.0 Lipase 36 Urine Color Yellow Urine Clarity Clear Urine pH 6.5 Ur Specific [place] 1.015 Urine Protein Negative Urine Glucose (UA) Normal Urine Ketones Negative Urine Occult Blood 10 H Urine Nitrite Negative Urine Bilirubin Negative Urine Urobilinogen Normal Ur Leukocyte Esterase 100 H Urine RBC 0 SEEN Urine WBC 0-5 SEEN Ur Squamous Epith Cells 0-5 SEEN Urine Bacteria 0 SEEN Urine Mucus 0 SEEN Radiography Diagnostic Testing: Clinical Impression(s) from Imaging Studies Abdomen/Pelvis CT 06/09/23 13:05 IMPRESSION: No focal acute inflammatory process. Electronically Signed: Brian Crump MD at 14:19 EST , <Dr. Rick Duvall MD - Last Filed: 06/10/23 15:50> [facility] Lab Data Labs: Laboratory Results - last 24 hr 06/09/23 06/09/23 13:08 14:16 WBC 8.7 RBC 5.15 Hgb 14.5 Hct 45.6 MCV 88.5 MCH 28.2 MCHC 31.8 L RDW Std Deviation 43.4 RDW Coeff of Remi 13.5 Plt Count 276 MPV 9.4 Immature Gran % (Auto) 0.500 Neut % (Auto) 66.2 Lymph % (Auto) 25.4 [place] % (Auto) 6.1 Eos % (Auto) 1.3 Baso % (Auto) 0.5 Absolute Neuts (auto) 5.8 Absolute Lymphs (auto) 2.20 Nucleated RBC % 0 Sodium 139 Potassium 4.3 Chloride 106 Carbon Dioxide 30.0 Anion Gap 3 L BUN 12 Creatinine 0.92 Estim Creat Clear Calc 67.50 Est GFR (MDRD) Af Amer 89 Est GFR (MDRD) Non-Af 74 BUN/Creatinine Ratio 13.1 Glucose 118 H Calcium 9.1 Total Bilirubin 0.40 AST 28 ALT 50 Alkaline Phosphatase 124 H Total Protein 7.3 Albumin 3.6 Globulin 3.7 Albumin/Globulin Ratio 1.0 Lipase 36 Urine Color Yellow Urine Clarity Clear Urine pH 6.5 Ur Specific [place] 1.015 Urine Protein Negative Urine Glucose (UA) Normal Urine Ketones Negative Urine Occult Blood 10 H Urine Nitrite Negative Urine Bilirubin Negative Urine Urobilinogen Normal Ur Leukocyte Esterase 100 H Urine RBC 0 SEEN Urine WBC 0-5 SEEN Ur Squamous Epith Cells 0-5 SEEN Urine Bacteria 0 SEEN Urine Mucus 0 SEEN Radiography Diagnostic Testing: Clinical Impression(s) from Imaging Studies Abdomen/Pelvis CT 06/09/23 13:05 IMPRESSION: No focal acute inflammatory process. Electronically Signed: Brian Crump MD at 14:19 EST , Treatment and Re-Evaluation :: I have personally performed a face to face assessment of the patient and have reviewed the DE Note. I performed a substantive portion of the visit including all aspects of the following. My [place] findings include: History: Patient is complaining of some rectal bleeding and proctitis type pain. She had missed some mesalamine dosages for a day is because she just did not feel well. No fevers or chills. Exam: Exam was difficult due to the size but no obvious tenderness in the abdomen. No gross bleeding. Medical Decision Making: Patient blood work as well as CT scan of the abdomen. No acute abdomen maladies. She has responded to oral steroids quite well and since she is having the bleeding and symptoms we will initiate those. Discharge Plan Triage Chief Complaint: GI Bleed ED Midlevel Provider: Micki Marinelli ED Provider: Rick Duvall Dx/Rx/DC Orders Clinical Impression: Proctitis, Abdominal pain, Nausea Instructions: Abdominal Pain Prescriptions: New prednisone 20 mg tablet 40 mg PO DAILY 4 Days Qty: 8 0RF No Action mesalamine 1,000 mg suppository 1 g RC .3xweek albuterol sulfate 90 mcg/actuation HFA aerosol inhaler 2 puff inhalation Q6H PRN cholecalciferol (vitamin D3) 25 mcg (1,000 unit) capsule 7,000 unit PO DAILY magnesium 250 mg tablet 250 mg PO DAILY hydroxyzine HCl 25 mg tablet 13.5 - 25 mg PO BID PRN ferrous sulfate [Feosol] 325 mg (65 mg iron) tablet 325 mg PO DAILY multivitamin Tablet 1 tab PO DAILY dextroamphetamine-amphetamine [Adderall] 10 mg tablet 10 mg PO BID Rx Instructions: administer doses at least 4-6 hours apart propranolol 10 mg tablet See Rx Instructions .ROUTE .COMPLEX Qty: 60 5RF Dose Instruction: take 1 tablet by mouth twice a day Rx Instructions: take 1 tablet by mouth twice a day Ubrelvy 100 mg tablet 100 mg PO .COMPLEX Qty: 16 5RF Rx Instructions: Take 1 tablet orally every 2 hours as needed for headache up to 2 tablets per day. flaxseed oil 1,000 MG capsule 1,000 mg PO DAILY polyethylene glycol 3350 [Miralax] 17 gram/dose powder 17 g PO BID Qty: 119 0RF sulfamethoxazole-trimethoprim [Bactrim DS] 800-160 mg tablet 1 tab PO BID Qty: 14 0RF ondansetron HCl 4 mg tablet 4 mg PO Q8H PRN (Reason: nausea and vomiting) Qty: 90 1RF levothyroxine 175 mcg tablet 175 mcg PO DAILY duloxetine 60 mg capsule, delayed rel sprinkle 60 mg PO .COMPLEX Rx Instructions: 60 mg orally daily with a 30 mg capsule to = 90 mg dialy; duloxetine 30 mg capsule,delayed release(DR/EC) 30 mg PO .COMPLEX Rx Instructions: 30 mg orally daily with a 60 mg capsule to = 90 mg; Primary Care Provider: Alana Barclay Referrals: Alana Barclay DO [Primary Care Provider] - Activity Restrictions/Additional Instructions: Follow up with GI doctor. Return for any worsening of symptoms. Disposition Disposition: Home, Self Care Discharge Date/Time: 06/09/23 16:10
[2023-06-09] MEDS: 0.9% Normal Saline (1000mL) 1,000 ML 999 ML IV (13:16)
[2023-06-09] MEDS: Morphine 4 MG/ML Syringe IV (13:16)
[2023-06-09] MEDS: Ondansetron 4 MG/2 ML Vial IV (13:16)
[2023-06-09 13:22] LABS: Absolute Neutrophil Count 5.8 X10^3/uL (2.0-7.7); Basophil# 0.04 X10^3/uL; Basophil% 0.5 % (0-1); Eosinophil# 0.11 X10^3/uL; Eosinophils% 1.3 % (0-5); Hematocrit 45.6 % (37-47); Hemoglobin 14.5 g/dL (12.0-15.0); Lymphocyte % 25.4 % (19-41); Mean Corp Hgb Conc 31.8 g/dL (32-36); Mean Corpuscular Hgb 28.2 pg (27.0-32.0); Mean Corpuscular Volume 88.5 fL (81-99); Mean Platelet Vol. 9.4 fl (6.2-12.0); Monocyte# 0.53 X10^3/uL; Monocyte% 6.1 % (0-10); NRBC Flagged by Analyzer 0 % (0-5); Neutrophil # 5.75 X10^3/uL (2.7-7.7); Neutrophil % 66.2 % (47-70); Platelet Count 276 K/mm3 (150-450); RBC Distribution Width CV 13.5 % (11.6-14.6); RBC Distribution Width SD 43.4 fl (35.1-43.9); Red Blood Count 5.15 M/mm3 (4.2-5.4); White Blood Count 8.7 K/mm3 (4.4-11.0)
[2023-06-09] MEDS: Dicyclomine 20 MG/2 ML Vial IM (13:28)
[2023-06-09 13:39] LABS: AST(SGOT) 28 U/L (15-37); Alanine Aminotransfer ALT/SGPT 50 U/L (13-56); Albumin, Serum 3.6 g/dL (3.2-5.0); Alkaline Phosphatase 124 U/L (45-117); Anion Gap 3 (5-15); BUN 12 mg/dL (7-18); BUN/Creat Ratio 13.1 RATIO (10-20); Calcium,Total 9.1 mg/dL (8.5-10.1); Chloride 106 mmol/L (98-107); Creatinine, Serum 0.92 mg/dL (0.55-1.02); EST Glomerular Filtration Rate 74 mL/min (>60); Est Glom Filt Rate - Afr Amer 89 mL/min (>60); Globulin 3.7 g/dL (2.2-4.2); Glucose 118 mg/dL (74-106); Lipase 36 U/L (13-75); Potassium 4.3 mmol/L (3.5-5.1); Protein, Total 7.3 g/dL (6.4-8.2); Sodium Level 139 mmol/L (136-145)
[2023-06-09 14:22] LABS: Bacteria 0 SEEN /hpf (None Seen); Mucous, Urine 0 SEEN /hpf (<or=2+); Red Blood Cells-Urine 0 SEEN /hpf (0-5)
[2023-06-09 14:25] LABS: Color, Urine Yellow (Yellow); Glucose, Dipstick Normal (Normal); Ketone-Dipstick Negative (Negative); Leukocyte Esterase-Dipstick 100 /ul (Negative); Nitrite-Dipstick Negative (Negative); Occult Blood-Urine 10 /ul (Negative); Protein-Dipstick Negative (Negative); Specific Gravity, Urine 1.015 (1.002-1.030); Urine Bilirubin Dipstick Negative (Negative); Urine Clarity Clear (Clear); Urine Urobilinogen Normal (Normal); Urine pH 6.5 (5.0 - 8.0)
[2023-06-09 14:34] LABS: Squamous Epithelial Cells - UA 0-5 SEEN /hpf (5-10); White Blood Cells 0-5 SEEN /hpf (0-5)
[2023-06-09] MEDS: 0.9% Normal Saline (500mL Bag) 500 ML 999 ML IV (14:56)
[2023-06-09] MEDS: predniSONE 20 MG Tablet 40 MG PO (15:10)
== END 2023-06-09 16:10 | disposition home or self-care (01) ==
PROVIDERS: Physician Assistant; Emergency Provider Emergency Medicine; PCP Internal Medicine; Visit Provider Emergency Medicine
DX: K62.89 Other specified diseases of anus and rectum (principal); R11.0 Nausea; R10.9 Unspecified abdominal pain
CPT/HCPCS: 74177; 80053; 81001; 83690; 85025; 96372; 96374; 96375; 99283; J7030; Q9967; J2405

== ENCOUNTER → 2023-08-11 | Outpatient (CLI) | payer BC, MEDICARE, SELFPAY ==
[2023-08-11 10:23] LABS: Absolute Lymphocyte Count 2.23 X10^3/uL (0.83-4.51); Basophil# 0.03 X10^3/uL; Basophil% 0.3 % (0-1); Eosinophil# 0.16 X10^3/uL; Eosinophils% 1.8 % (0-5); Hematocrit 45.5 % (37-47); Lymphocyte # 2.23 X10^3/ul (0.83-4.51); Mean Corpuscular Hgb 29.4 pg (27.0-32.0); Mean Corpuscular Volume 89.2 fL (81-99); Mean Platelet Vol. 9.7 fl (6.2-12.0); Monocyte# 0.51 X10^3/uL; Monocyte% 5.7 % (0-10); NRBC Flagged by Analyzer 0 % (0-5); Neutrophil # 5.95 X10^3/uL (2.7-7.7); Neutrophil % 66.6 % (47-70); Platelet Count 269 K/mm3 (150-450); RBC Distribution Width CV 13.8 % (11.6-14.6); RBC Distribution Width SD 44.6 fl (35.1-43.9); White Blood Count 8.9 K/mm3 (4.4-11.0)
[2023-08-11 10:54] LABS: ALB/GLOB Ratio 1.1 RATIO (0.9-2.4); AST(SGOT) 53 U/L (15-37); Alanine Aminotransfer ALT/SGPT 95 U/L (13-56); Albumin, Serum 3.8 g/dL (3.2-5.0); Alkaline Phosphatase 136 U/L (45-117); Anion Gap 9 (5-15); BUN 10 mg/dL (7-18); BUN/Creat Ratio 10.7 RATIO (10-20); Calcium,Total 9.4 mg/dL (8.5-10.1); Chloride 105 mmol/L (98-107); Cholesterol 168 mg/dL (200); Creatinine, Serum 0.94 mg/dL (0.55-1.02); EST Glomerular Filtration Rate 72 mL/min (>60); Est Glom Filt Rate - Afr Amer 87 mL/min (>60); Ferritin 39 ng/mL (8-252); Globulin 3.4 g/dL (2.2-4.2); Glucose 123 mg/dL (74-106); High Density Lipoprotein 52 mg/dL; Iron 96 ug/dL (50-170); Iron Binding Capacity,Total 356 ug/dL (250-450); Potassium 3.9 mmol/L (3.5-5.1); Protein, Total 7.2 g/dL (6.4-8.2); Sodium Level 141 mmol/L (136-145); T4 Free Direct 1.66 ng/dL (0.76-1.46); Thyroid Stim Hormone (TSH) 1.62 uIU/mL (0.358-3.74); Triglycerides 132 mg/dL; Very Low Density Lipoprotein 26 mg/dL (5-40)
== END | disposition home or self-care (01) ==
LOC: MFPLAB 09:01
PROVIDERS: PCP Internal Medicine; Visit Provider Family Medicine
DX: A18.01 Tuberculosis of spine (principal); E03.9 Hypothyroidism, unspecified; Z86.2 Personal history of diseases of the blood and blood-forming organs and certain disorders involving the immune mechanism
CPT/HCPCS: 36415; 80053; 80061; 82306; 82728; 83540; 83550; 84439; 84443; 85025